=== PATIENT | female | born 1980 | race Caucasian/White ===

== ENCOUNTER 2019-07-25 08:11 | Outpatient (CLI) | payer OTHER, SELFPAY ==
[2019-07-25 10:49] LABS: Thyroid Stimulating Hormone 0.567 uIU/mL (0.465-4.680)
[2019-07-25 11:20] LABS: Free T4 Free Thyroxine 1.39 ng/mL (0.78-2.19)
[2019-07-25 14:56] LABS: Total Triiodothyronine (T3) 1.31 NG/ML (0.97-1.69)
== END 2019-07-25 08:12 | disposition home or self-care (01) ==
PROVIDERS: PCP Internal Medicine Infectious Disease; Visit Provider Internal Medicine
DX: E06.3 Autoimmune thyroiditis (principal); E03.8 Other specified hypothyroidism
CPT/HCPCS: 36415; 84439; 84443; 84480

== ENCOUNTER 2020-01-13 06:32 | Outpatient (CLI) | payer OTHER, SELFPAY ==
[2020-01-13 07:53] LABS: Cholesterol 172 mg/dL (0-200); HDL Direct 55 mg/dL; Triglycerides 143 mg/dL (<150)
[2020-01-13 08:04] LABS: LDL Cholesterol Direct 85 mg/dL
== END 2020-01-13 06:33 | disposition home or self-care (01) ==
PROVIDERS: PCP Internal Medicine Infectious Disease
DX: Z13.220 Encounter for screening for lipoid disorders (principal)
CPT/HCPCS: 36415; 80061

== ENCOUNTER 2020-01-15 16:59 | Outpatient (CLI) | payer OTHER, SELFPAY ==
[2020-01-15 19:10] LABS: Thyroid Stimulating Hormone 0.656 uIU/mL (0.465-4.680); Total Triiodothyronine (T3) 1.36 NG/ML (0.97-1.69)
== END 2020-01-15 17:00 | disposition home or self-care (01) ==
LOC: ANHLAB 17:02
PROVIDERS: PCP Internal Medicine Infectious Disease; Visit Provider Internal Medicine
DX: E06.3 Autoimmune thyroiditis (principal); E04.2 Nontoxic multinodular goiter; E03.8 Other specified hypothyroidism; R56.9 Unspecified convulsions
CPT/HCPCS: 36415; 84439; 84443; 84480

== ENCOUNTER 2020-02-13 13:53 | Outpatient (CLI) | payer OTHER, SELFPAY ==
--- NOTE | ~2020-02-13 | MM_ITS ---
EXAMINATION: MM diagnostic nicolas BI w mark HISTORY: History of right breast density. No problems reported recently. TECHNIQUE: ML, MLO and craniocaudal 3-D tomosynthesis images of both breasts were performed and synth etic 2-D images were generated. CAD analysis was submitted and interpreted. COMPARISON: 02/18/2019bilateral diagnostic digital mammogram 08/14/2018 diagnostic right digital mammogram 01/25/2018bilateral diagnostic digital mammogram and limited right breast ultrasound 01/18/2018bilateral digital screening mammogram BREAST PARENCHYMAL COMPOSITION: There are scattered areas of fibroglandular density. FINDINGS: No mammographic evidence of suspicious mass, architectural distortion, malignant calcificat ion, skin thickening or retraction or significant new or developing density since 01/18/2018. IMPRESSION: 1. No mammographic evidence of malignancy 2. Routine mammographic screening is recommended. BI-RADS Category 1: Negative Reviewed, dictated and finalized at location A. E SALES CONSULTANT
== END 2020-02-13 13:54 | disposition home or self-care (01) ==
LOC: ANHIMG 14:00
PROVIDERS: PCP Internal Medicine Infectious Disease
DX: R92.8 Other abnormal and inconclusive findings on diagnostic imaging of breast (principal)
CPT/HCPCS: 77062; 77066; G0279

== ENCOUNTER 2020-06-19 12:30 | Outpatient (CLI) | payer OTHER, SELFPAY ==
[2020-06-19 13:42] LABS: Thyroid Stimulating Hormone 0.702 uIU/mL (0.465-4.680); Total Triiodothyronine (T3) 1.19 NG/ML (0.97-1.69)
[2020-06-19 13:54] LABS: Free T4 Free Thyroxine 0.95 ng/mL (0.78-2.19)
== END 2020-06-19 12:31 | disposition home or self-care (01) ==
LOC: ANHLAB 12:33
PROVIDERS: PCP Internal Medicine Infectious Disease; Visit Provider Internal Medicine
DX: E06.3 Autoimmune thyroiditis (principal); E04.2 Nontoxic multinodular goiter; E03.8 Other specified hypothyroidism; R56.9 Unspecified convulsions
CPT/HCPCS: 36415; 84439; 84443; 84480

== ENCOUNTER 2020-12-16 13:34 | Outpatient (CLI) | payer OTHER, SELFPAY ==
[2020-12-16 14:21] LABS: Basophils Percent Auto 0.4 % (0.2-1.2); Eosinophils Absolute Auto 0.1 K/mm3 (0-0.3); Eosinophils Percent Auto 1.5 % (0-4.4); Hematocrit 36.4 % (37.0-47.0); Hemoglobin 10.9 g/dL (12.0-15.0); Immature Granulocyte Absolute 0.03 K/mm3 (0.00-0.031); Immature Granulocyte Percent A 0.3 % (0-0.5); Lymphocytes Absolute Auto 3.03 K/mm3 (0.9-3.2); Mean Corpuscular HGB Conc 29.9 g/dl (32-36); Mean Corpuscular Volume 80.2 fl (80-100); Monocytes Absolute Auto 0.5 K/mm3 (0.1-0.6); Monocytes Percent Auto 5.1 % (2.6-8.5); Neutrophils Absolute Auto 5.7 K/mm3 (1.3-6.7); Neutrophils Percent Auto 60.7 % (45.5-73.1); Platelet Count Result 220 k/mm3 (150-375); Red Blood Count 4.54 M/mm3 (4.2-5.4); Red Cell Distribution Width 17.4 % (11.5-14.5); White Blood Count 9.5 K/mm3 (4.5-10.0)
[2020-12-16 14:47] LABS: Free T4 Free Thyroxine 1.43 ng/mL (0.78-2.19)
[2020-12-16 18:00] LABS: Alanine Aminotransferase 15 U/L (4-35); Albumin Level 4.3 g/dL (3.5-5.1); Alkaline Phosphatase 52 U/L (38-126); Anion Gap 11 mmol/L (8-16); Aspartate Amino Transferase 21 U/L (14-36); Bilirubin,Total 0.3 mg/dL (0.2-1.3); Blood Urea Nitrogen 13 mg/dL (7-17); Calcium 8.7 mg/dL (8.4-10.2); Carbon Dioxide 19 mmol/L (22-30); Chloride 110 mmol/L (98-107); Cholesterol 183 mg/dL (0-200); Estimated Glomerular Filt Rate 54; Glucose 94 mg/dL (65-110); HDL Direct 63 mg/dL; Potassium 3.7 mmol/L (3.4-5.0); Sodium 140 mmol/L (137-145); Triglycerides 102 mg/dL (<150)
[2020-12-16 18:11] LABS: LDL Cholesterol Direct 89 mg/dL
[2020-12-16 18:31] LABS: Thyroid Stimulating Hormone 0.303 uIU/mL (0.465-4.680); Total Triiodothyronine (T3) 1.36 NG/ML (0.97-1.69)
== END 2020-12-16 13:35 | disposition home or self-care (01) ==
LOC: ANHLAB 13:36
PROVIDERS: PCP Internal Medicine Infectious Disease; Visit Provider Internal Medicine
DX: Z00.00 Encounter for general adult medical examination without abnormal findings (principal); E06.3 Autoimmune thyroiditis; E04.2 Nontoxic multinodular goiter; E03.8 Other specified hypothyroidism
CPT/HCPCS: 36415; 80053; 80061; 84439; 84443; 84480; 85025

== ENCOUNTER 2021-01-06 13:23 | Outpatient (CLI) | payer OTHER, SELFPAY ==
[2021-01-06 14:05] LABS: Basophils Percent Auto 0.5 % (0.2-1.2); Eosinophils Absolute Auto 0.1 K/mm3 (0-0.3); Eosinophils Percent Auto 1.5 % (0-4.4); Hematocrit 38.2 % (37.0-47.0); Hemoglobin 11.6 g/dL (12.0-15.0); Immature Granulocyte Absolute 0.02 K/mm3 (0.00-0.031); Immature Granulocyte Percent A 0.3 % (0-0.5); Lymphocytes Absolute Auto 2.61 K/mm3 (0.9-3.2); Lymphocytes Percent Auto 35.8 % (18.3-44.2); Mean Corpuscular HGB Conc 30.4 g/dl (32-36); Mean Corpuscular Hemoglobin 24.4 pg (26-34); Mean Corpuscular Volume 80.4 fl (80-100); Mean Platelet Volume 11.7 fl (7.4-10.4); Monocytes Absolute Auto 0.5 K/mm3 (0.1-0.6); Monocytes Percent Auto 7.1 % (2.6-8.5); Neutrophils Percent Auto 54.8 % (45.5-73.1); Platelet Count Result 241 k/mm3 (150-375); Red Blood Count 4.75 M/mm3 (4.2-5.4); Red Cell Distribution Width 17.9 % (11.5-14.5); White Blood Count 7.3 K/mm3 (4.5-10.0)
[2021-01-06 14:17] LABS: Albumin Level 4.2 g/dL (3.5-5.1); Anion Gap 10 mmol/L (8-16); Blood Urea Nitrogen 12 mg/dL (7-17); Calcium 9.3 mg/dL (8.4-10.2); Carbon Dioxide 23 mmol/L (22-30); Chloride 107 mmol/L (98-107); Estimated Glomerular Filt Rate 49; Glucose 89 mg/dL (65-110); Phosphorus 3.7 mg/dL (2.5-4.5); Potassium 3.6 mmol/L (3.4-5.0); Sodium 140 mmol/L (137-145)
[2021-01-06 14:34] LABS: Iron 25 ug/dL (37-170)
[2021-01-06 14:43] LABS: Percent Iron Saturation 5 % (20-50)
[2021-01-06 15:10] LABS: Ferritin 5.72 ng/mL (6.24-137)
== END 2021-01-06 13:24 | disposition home or self-care (01) ==
PROVIDERS: PCP Internal Medicine Infectious Disease; Visit Provider Internal Medicine Infectious Disease
DX: D64.9 Anemia, unspecified (principal); R79.89 Other specified abnormal findings of blood chemistry
CPT/HCPCS: 36415; 80069; 82728; 83540; 83550; 85025

== ENCOUNTER 2021-02-08 07:06 | Outpatient (CLI) | payer OTHER, SELFPAY ==
[2021-02-08 07:34] LABS: Cholesterol 200 mg/dL (0-200); HDL Direct 66 mg/dL; Triglycerides 147 mg/dL (<150)
[2021-02-08 07:45] LABS: LDL Cholesterol Direct 111 mg/dL
== END 2021-02-08 07:07 | disposition home or self-care (01) ==
PROVIDERS: PCP Internal Medicine Infectious Disease; Visit Provider Nurse Practitioner Women's Health
DX: Z13.220 Encounter for screening for lipoid disorders (principal)
CPT/HCPCS: 36415; 80061

== ENCOUNTER 2021-02-12 07:24 | Outpatient (CLI) | payer OTHER, SELFPAY ==
--- NOTE | ~2021-02-12 | MM_ITS ---
EXAMINATION: MM screening nicolas BI w mark HISTORY: Screening mammogram TECHNIQUE: Craniocaudal and mediolateral oblique 3-D tomosynthesis images were obtained and synthetic 2-D images were generated. CAD analysis was submitted and interpreted. COMPARISON: 02/13/2020 bilateral screening mammogram 02/18/2019 bilateral diagnostic mammogram BREAST PARENCHYMAL COMPOSITION: There are scattered areas of fibroglandular density. FINDINGS: There is focal asymmetry 3.3 cm deep to the nipple central left breast on craniocaudal view ; diagnostic left mammogram is recommended, with ultrasound if required. Otherwise there is no evidence of suspicious mass, calcification, or architectural distortion to sugg est malignancy in either breast. There has been no other suspicious interval change. IMPRESSION: 1. Focal asymmetry 3.3 cm deep to the nipple in central left breast on craniocaudal view 2. Diagnostic left mammogram is recommended, with ultrasound if required BI-RADS Category 0: Incomplete: Needs additional imaging evaluation. Reviewed, dictated and finalized at location A. IAC CARE UNIT NURSE IMPRESSION: 1. Focal asymmetry 3.3 cm deep to the nipple in central left breast on cranioca udal view 2. Diagnostic left mammogram is recommended, with ultrasound if required BI-RADS Category 0: Incomplete: Needs additional imaging evaluation.
== END 2021-02-12 07:25 | disposition home or self-care (01) ==
LOC: ANHIMG 07:27
PROVIDERS: PCP Internal Medicine Infectious Disease; Visit Provider Nurse Practitioner Women's Health
DX: Z12.31 Encounter for screening mammogram for malignant neoplasm of breast (principal)
CPT/HCPCS: 77063; 77067

== ENCOUNTER 2021-02-18 14:05 | Outpatient (CLI) | payer OTHER, SELFPAY ==
[2021-02-18 14:54] LABS: Basophils Absolute Auto 0.1 K/mm3 (0.0-0.1); Basophils Percent Auto 0.7 % (0.2-1.2); Eosinophils Absolute Auto 0.2 K/mm3 (0-0.3); Eosinophils Percent Auto 1.8 % (0-4.4); Hematocrit 36.6 % (37.0-47.0); Hemoglobin 11.7 g/dL (12.0-15.0); Immature Granulocyte Absolute 0.02 K/mm3 (0.00-0.031); Immature Granulocyte Percent A 0.2 % (0-0.5); Lymphocytes Absolute Auto 2.81 K/mm3 (0.9-3.2); Lymphocytes Percent Auto 33.7 % (18.3-44.2); Mean Corpuscular Hemoglobin 25.1 pg (26-34); Mean Corpuscular Volume 78.4 fl (80-100); Monocytes Absolute Auto 0.5 K/mm3 (0.1-0.6); Monocytes Percent Auto 5.6 % (2.6-8.5); Neutrophils Absolute Auto 4.8 K/mm3 (1.3-6.7); Platelet Count Result 286 k/mm3 (150-375); Red Blood Count 4.67 M/mm3 (4.2-5.4); White Blood Count 8.4 K/mm3 (4.5-10.0)
[2021-02-18 15:27] LABS: Albumin Level 4.5 g/dL (3.5-5.1); Anion Gap 11 mmol/L (8-16); Blood Urea Nitrogen 13 mg/dL (7-17); Carbon Dioxide 19 mmol/L (22-30); Chloride 105 mmol/L (98-107); Estimated Glomerular Filt Rate 54; Glucose 89 mg/dL (65-110); Phosphorus 3.4 mg/dL (2.5-4.5); Potassium 3.6 mmol/L (3.4-5.0); Sodium 135 mmol/L (137-145)
[2021-02-18 15:53] LABS: Total Triiodothyronine (T3) 1.28 NG/ML (0.97-1.69)
== END 2021-02-18 14:06 | disposition home or self-care (01) ==
PROVIDERS: PCP Internal Medicine Infectious Disease; Visit Provider Internal Medicine
DX: D50.0 Iron deficiency anemia secondary to blood loss (chronic) (principal); E04.2 Nontoxic multinodular goiter; E06.3 Autoimmune thyroiditis
CPT/HCPCS: 36415; 80069; 84439; 84443; 84480; 85025

== ENCOUNTER 2021-04-26 12:39 | Outpatient (CLI) | payer OTHER, SELFPAY ==
[2021-04-26 13:12] LABS: Basophils Absolute Auto 0.1 K/mm3 (0.0-0.1); Basophils Percent Auto 0.8 % (0.2-1.2); Eosinophils Absolute Auto 0.2 K/mm3 (0-0.3); Hematocrit 44.5 % (37.0-47.0); Hemoglobin 14.2 g/dL (12.0-15.0); Immature Granulocyte Absolute 0.02 K/mm3 (0.00-0.031); Immature Granulocyte Percent A 0.2 % (0-0.5); Lymphocytes Absolute Auto 3.07 K/mm3 (0.9-3.2); Lymphocytes Percent Auto 35.3 % (18.3-44.2); Mean Corpuscular HGB Conc 31.9 g/dl (32-36); Mean Corpuscular Hemoglobin 28.1 pg (26-34); Mean Corpuscular Volume 87.9 fl (80-100); Mean Platelet Volume 11.9 fl (7.4-10.4); Monocytes Absolute Auto 0.4 K/mm3 (0.1-0.6); Neutrophils Percent Auto 57.7 % (45.5-73.1); Platelet Count Result 250 k/mm3 (150-375); Red Blood Count 5.06 M/mm3 (4.2-5.4); Red Cell Distribution Width 19.6 % (11.5-14.5); White Blood Count 8.7 K/mm3 (4.5-10.0)
[2021-04-26 13:26] LABS: Albumin Level 4.6 g/dL (3.5-5.1); Anion Gap 9 mmol/L (8-16); Blood Urea Nitrogen 12 mg/dL (7-17); Carbon Dioxide 21 mmol/L (22-30); Chloride 107 mmol/L (98-107); Estimated Glomerular Filt Rate > 60; Glucose 107 mg/dL (65-110); Phosphorus 3.2 mg/dL (2.5-4.5); Potassium 3.9 mmol/L (3.4-5.0); Sodium 137 mmol/L (137-145)
[2021-04-26 13:42] LABS: Iron 280 ug/dL (37-170)
[2021-04-26 13:51] LABS: Percent Iron Saturation 62 % (20-50)
[2021-04-26 14:57] LABS: Add Urine Microscopic? YES; Appearance Urine Clear (Clear); Bilirubin Urine Negative (Negative); Blood Urine Negative (Negative); Color Urine Yellow (Yellow); Glucose Urine UA Negative (Negative); Ketones Urine Negative (Negative); Leukocyte Esterase Ur 2+ LEU/UL (Negative); Mucus Urine Rare /lpf; Nitrate Urine Negative (Negative); Protein Urine Negative (Negative); RBC Urine 0-2 /hpf (0-2); Specific Grav Ur 1.013 (1.001-1.035); Squamous Epithelial Cell Urine Few /hpf (Few); Urobilinogen Urine Negative mg/dL (<2.0)
[2021-04-28 21:37] LABS: Tissue Transglutaminase IgA Ab <1.0 U/mL (<15.0)
== END 2021-04-26 12:40 | disposition home or self-care (01) ==
PROVIDERS: PCP Internal Medicine Infectious Disease; Visit Provider Internal Medicine Infectious Disease
DX: D50.0 Iron deficiency anemia secondary to blood loss (chronic) (principal); N18.30 Chronic kidney disease, stage 3 unspecified
CPT/HCPCS: 36415; 80069; 81001; 82728; 83516; 83540; 83550; 85025

== ENCOUNTER 2021-05-13 12:18 | Outpatient (CLI) | payer OTHER, SELFPAY ==
--- NOTE | ~2021-05-13 | MM_ITS ---
EXAMINATION: MM diagnostic nicolas LT w mark HISTORY: Focal asymmetry in the left breast on screening mammogram TECHNIQUE: Additional 3-D tomosynthesis images of the left breast were performed and synthetic 2-D im ages were generated. CAD analysis was submitted and interpreted. COMPARISON: 02/12/2021, 02/13/2020,02/28/2019 BREAST PARENCHYMAL COMPOSITION: There are scattered areas of fibroglandular density. FINDINGS: There is a return to baseline fibroglandular appearance with spot compression of the left b reast in the area questioned on screening mammogram. IMPRESSION: 1. No mammographic evidence of malignancy. 2. Recommend routine screening mammography in one year. BI-RADS Category 1: Negative Reviewed, dictated and finalized at location A. ICAL MEDICINE SPECIALIST
== END 2021-05-13 12:19 | disposition home or self-care (01) ==
LOC: ANHIMG 12:19
PROVIDERS: PCP Internal Medicine Infectious Disease; Visit Provider Nurse Practitioner Women's Health
DX: R92.8 Other abnormal and inconclusive findings on diagnostic imaging of breast (principal); N64.59 Other signs and symptoms in breast
CPT/HCPCS: 77061; 77065; G0279

== ENCOUNTER 2021-07-01 07:44 | Outpatient (CLI) | payer OTHER, SELFPAY ==
[2021-07-01 08:49] LABS: Total Triiodothyronine (T3) 1.26 NG/ML (0.97-1.69)
[2021-07-01 09:01] LABS: Free T4 Free Thyroxine 1.29 ng/mL (0.78-2.19)
== END 2021-07-01 07:45 | disposition home or self-care (01) ==
LOC: ANHLAB 07:47
PROVIDERS: PCP Internal Medicine Infectious Disease; Visit Provider Internal Medicine
DX: E06.3 Autoimmune thyroiditis (principal); E04.2 Nontoxic multinodular goiter
CPT/HCPCS: 36415; 84439; 84443; 84480

== ENCOUNTER 2021-08-19 17:01 | Outpatient (CLI) | payer OTHER, SELFPAY ==
[2021-08-19 17:31] LABS: Basophils Absolute Auto 0.1 K/mm3 (0.0-0.1); Basophils Percent Auto 0.7 % (0.2-1.2); Eosinophils Absolute Auto 0.2 K/mm3 (0-0.3); Eosinophils Percent Auto 1.6 % (0-4.4); Hematocrit 43.5 % (37.0-47.0); Hemoglobin 14.5 g/dL (12.0-15.0); Immature Granulocyte Absolute 0.03 K/mm3 (0.00-0.031); Immature Granulocyte Percent A 0.3 % (0-0.5); Lymphocytes Absolute Auto 3.26 K/mm3 (0.9-3.2); Lymphocytes Percent Auto 31.3 % (18.3-44.2); Mean Corpuscular HGB Conc 33.3 g/dl (32-36); Mean Corpuscular Hemoglobin 31.4 pg (26-34); Mean Corpuscular Volume 94.2 fl (80-100); Mean Platelet Volume 11.7 fl (7.4-10.4); Monocytes Absolute Auto 0.6 K/mm3 (0.1-0.6); Monocytes Percent Auto 5.5 % (2.6-8.5); Neutrophils Absolute Auto 6.3 K/mm3 (1.3-6.7); Neutrophils Percent Auto 60.6 % (45.5-73.1); Platelet Count Result 209 k/mm3 (150-375); Red Blood Count 4.62 M/mm3 (4.2-5.4); Red Cell Distribution Width 13.3 % (11.5-14.5); White Blood Count 10.4 K/mm3 (4.5-10.0)
[2021-08-19 17:45] LABS: Albumin Level 4.2 g/dL (3.5-5.1); Anion Gap 9 mmol/L (8-16); Blood Urea Nitrogen 16 mg/dL (7-17); Calcium 8.7 mg/dL (8.4-10.2); Carbon Dioxide 24 mmol/L (22-30); Chloride 107 mmol/L (98-107); Estimated Glomerular Filt Rate 54; Glucose 105 mg/dL (65-110); Phosphorus 4.1 mg/dL (2.5-4.5); Potassium 3.7 mmol/L (3.4-5.0); Sodium 140 mmol/L (137-145)
== END 2021-08-19 17:02 | disposition home or self-care (01) ==
LOC: ANHLAB 17:03
PROVIDERS: PCP Internal Medicine Infectious Disease; Visit Provider Internal Medicine Infectious Disease
DX: D50.0 Iron deficiency anemia secondary to blood loss (chronic) (principal)
CPT/HCPCS: 36415; 80069; 85025

== ENCOUNTER 2021-11-05 07:43 | Outpatient (CLI) | payer OTHER, SELFPAY ==
[2021-11-05 10:26] LABS: Total Triiodothyronine (T3) 1.15 NG/ML (0.97-1.69)
== END 2021-11-05 07:44 | disposition home or self-care (01) ==
PROVIDERS: PCP Internal Medicine Infectious Disease; Visit Provider Internal Medicine
DX: E06.3 Autoimmune thyroiditis (principal); E03.8 Other specified hypothyroidism
CPT/HCPCS: 36415; 84436; 84443; 84480

== ENCOUNTER 2022-03-04 14:55 | Outpatient (CLI) | payer OTHER, SELFPAY ==
[2022-03-04 15:27] LABS: Add Urine Microscopic? YES; Appearance Urine Cloudy (Clear); Basophils Percent Auto 0.5 % (0.2-1.2); Bilirubin Urine Negative (Negative); Blood Urine Negative (Negative); Color Urine Light Yellow (Yellow); Eosinophils Absolute Auto 0.1 K/mm3 (0-0.3); Eosinophils Percent Auto 1.6 % (0-4.4); Glucose Urine UA Negative (Negative); Hematocrit 42.6 % (37.0-47.0); Hemoglobin 13.7 g/dL (12.0-15.0); Immature Granulocyte Absolute 0.02 K/mm3 (0.00-0.031); Immature Granulocyte Percent A 0.3 % (0-0.5); Ketones Urine Negative (Negative); Leukocyte Esterase Ur 2+ LEU/UL (Negative); Lymphocytes Absolute Auto 2.51 K/mm3 (0.9-3.2); Lymphocytes Percent Auto 31.7 % (18.3-44.2); Mean Corpuscular HGB Conc 32.2 g/dl (32-36); Mean Corpuscular Volume 93.2 fl (80-100); Mean Platelet Volume 11.9 fl (7.4-10.4); Monocytes Absolute Auto 0.5 K/mm3 (0.1-0.6); Monocytes Percent Auto 6.3 % (2.6-8.5); Neutrophils Absolute Auto 4.7 K/mm3 (1.3-6.7); Neutrophils Percent Auto 59.6 % (45.5-73.1); Nitrate Urine Negative (Negative); Platelet Count Result 205 k/mm3 (150-375); Protein Urine Negative (Negative); Red Blood Count 4.57 M/mm3 (4.2-5.4); Red Cell Distribution Width 13.6 % (11.5-14.5); Specific Grav Ur 1.015 (1.001-1.035); Urobilinogen Urine 0.2 mg/dL (<2.0); White Blood Count 7.9 K/mm3 (4.5-10.0); pH Urine 7.5 (5.0-9.0)
[2022-03-04 15:39] LABS: Amorphous Sediment Urine Few; Bacteria Urine Trace /hpf; RBC Urine 0-2 /hpf (0-2); Squamous Epithelial Cell Urine Many /hpf (Few)
[2022-03-04 15:46] LABS: Alanine Aminotransferase 16 U/L (6-35); Albumin Level 4.2 g/dL (3.5-5.1); Alkaline Phosphatase 59 U/L (38-126); Anion Gap 7 mmol/L (8-16); Aspartate Amino Transferase 21 U/L (14-36); Bilirubin,Total 0.3 mg/dL (0.2-1.3); Blood Urea Nitrogen 16 mg/dL (7-17); Calcium 8.3 mg/dL (8.4-10.2); Carbon Dioxide 22 mmol/L (22-30); Chloride 108 mmol/L (98-107); Estimated Glomerular Filt Rate 54; Glucose 90 mg/dL (65-110); Lipase 149 U/L (23-300); Potassium 3.6 mmol/L (3.4-5.0); Sodium 137 mmol/L (137-145)
[2022-03-04 17:11] LABS: Free T4 Free Thyroxine 1.12 ng/mL (0.78-2.19); Vitamin D 25 Hydroxy 90.3 ng/mL
[2022-03-10 23:04] LABS: Triiodothyronine T3 Free 2.5 pg/mL (2.3-4.2)
== END 2022-03-04 14:56 | disposition home or self-care (01) ==
PROVIDERS: PCP Internal Medicine Infectious Disease; Referring Provider Internal Medicine; Visit Provider Internal Medicine Infectious Disease
DX: Z00.00 Encounter for general adult medical examination without abnormal findings (principal); G40.209 Localization-related (focal) (partial) symptomatic epilepsy and epileptic syndromes with complex partial seizures, not intractable, without status epilepticus
CPT/HCPCS: 36415; 80053; 81001; 82306; 83690; 84439; 84443; 84481; 85025; 87086; 87088

== ENCOUNTER 2022-03-18 12:22 | Outpatient (CLI) | payer OTHER, SELFPAY ==
--- NOTE | ~2022-03-18 | US_ITS ---
EXAMINATION: US pelvic complete w TV DATE: 03/18/2022 13:19 INDICATION: Intermittent left lower quadrant pain Comparison:No prior studies for comparison. TECHNIQUE: Multiple transabdominal and endovaginal sonographic images of the pelvis performed. FINDINGS: The uterus measures 7.3 x 4.7 x 4 cm. There are uterine fibroids, largest located anteriorl y on the right measuring 1.8 cm. The endometrial complex measures 8 mm. The right ovary measures 4.1 x 3.5 x 3.7 cm and the left ovary measures 3.3 x 2.2 x 1.6 cm. There is a right ovarian cyst measuring 2.1 cm. There are small follicles in each ovary. Normal doppler signal in both ovaries. There is no free fluid in the pelvis. There are no abnormal masses seen on either side. IMPRESSION: 1. Uterine fibroids, largest measuring 1.8 cm. 2: Right ovarian cyst measuring 2.1 cm. Reviewed, dictated and finalized at location A. OPRACTIC TEACHER
== END 2022-03-18 12:23 | disposition home or self-care (01) ==
LOC: ANHIMG 12:26
PROVIDERS: PCP Internal Medicine Infectious Disease; Visit Provider Nurse Practitioner Women's Health
DX: R10.2 Pelvic and perineal pain (principal); D25.9 Leiomyoma of uterus, unspecified; N83.201 Unspecified ovarian cyst, right side
CPT/HCPCS: 76830; 76856

== ENCOUNTER 2022-04-13 16:51 | Outpatient (CLI) | payer OTHER, SELFPAY ==
[2022-04-13 19:06] LABS: Folic Acid 11.1 ng/mL (2.76->20)
[2022-04-17 04:03] LABS: FSH 4.9 mIU/mL (***); LH 3.6 mIU/mL (***)
[2022-04-20 20:53] LABS: Estrogen 127.9 pg/mL
[2022-04-22 14:53] LABS: Estradiol, Ultrasensitive <2
== END 2022-04-13 16:52 | disposition home or self-care (01) ==
PROVIDERS: PCP Internal Medicine Infectious Disease; Visit Provider Internal Medicine Infectious Disease
DX: Z00.00 Encounter for general adult medical examination without abnormal findings (principal); N89.8 Other specified noninflammatory disorders of vagina
CPT/HCPCS: 36415; 82670; 82672; 82746; 83001; 83002

== ENCOUNTER 2022-05-10 14:05 | Outpatient (CLI) | payer OTHER, SELFPAY ==
[2022-05-10 16:16] LABS: Free T4 Free Thyroxine 1.19 ng/mL (0.78-2.19)
[2022-05-13 04:36] LABS: Triiodothyronine T3 Free 2.4 pg/mL (2.3-4.2)
== END 2022-05-10 14:06 | disposition home or self-care (01) ==
PROVIDERS: PCP Internal Medicine Infectious Disease; Visit Provider Internal Medicine
DX: E06.3 Autoimmune thyroiditis (principal)
CPT/HCPCS: 36415; 84439; 84443; 84481

== ENCOUNTER 2022-05-19 08:10 | Outpatient (CLI) | payer OTHER, SELFPAY ==
--- NOTE | ~2022-05-19 | US_ITS ---
Pelvic ultrasound. Clinical History: Ovarian cyst Technique: Realtime transabdominal and transvaginal scanning of the pelvis was performed. Color flow Doppler and Doppler spectral analysis were performed. Findings: The uterus is anteverted. The endometrial stripe has a thickness of 8 mm. Exophytic fibroi d measures 2.0 cm in diameter. Small intramural fibroid measures 1.0 cm at the lower uterine segment. The right ovary measures 3.2 x 1.7 x 2.7 cm. No significant right ovarian or adnexal mass is seen. The left ovary measures 2.7 x 2.7 x 1.5 cm. No significant left ovarian or adnexal mass is seen. Vascular flow present in both ovaries on Doppler spectral analysis. There is no evidence of free fluid in the cul de sac. Impression: Small uterine fibroids, as detailed above. Reviewed, dictated and finalized at [facility]. WORKER Impression: Small uterine fibroids, as detailed above.
== END 2022-05-19 08:11 | disposition home or self-care (01) ==
PROVIDERS: PCP Internal Medicine Infectious Disease; Visit Provider Nurse Practitioner Women's Health
DX: N83.201 Unspecified ovarian cyst, right side (principal); D25.9 Leiomyoma of uterus, unspecified
CPT/HCPCS: 76830; 76856

== ENCOUNTER 2022-06-09 09:01 | Outpatient (CLI) | payer OTHER, SELFPAY ==
--- NOTE | ~2022-06-09 | MM_ITS ---
EXAMINATION: MM screening nicolas BI w mark HISTORY: Screening TECHNIQUE: Craniocaudal and mediolateral oblique 3-D tomosynthesis images were obtained and synthetic 2-D images were generated. CAD analysis was submitted and interpreted. COMPARISON: Comparison to multiple prior studies sequentially, with oldest reviewed study dated 01/11. BREAST PARENCHYMAL COMPOSITION: The breasts are heterogeneously dense, which may obscure small masses FINDINGS: There is no evidence of suspicious mass, calcification, or architectural distortion to sugg est malignancy in either breast. There has been no suspicious interval change. IMPRESSION: 1. No mammographic evidence of malignancy. 2. Recommend routine screening mammography in one year. BI-RADS Category 1: Negative Reviewed, dictated and finalized at location A.
== END 2022-06-09 09:02 | disposition home or self-care (01) ==
PROVIDERS: PCP Internal Medicine Infectious Disease; Visit Provider Nurse Practitioner Women's Health
DX: Z12.31 Encounter for screening mammogram for malignant neoplasm of breast (principal)
CPT/HCPCS: 77063; 77067

== ENCOUNTER 2022-08-31 13:05 | Outpatient (CLI) | payer OTHER, SELFPAY ==
[2022-08-31 14:07] LABS: Basophils Percent Auto 0.4 % (0.2-1.2); Eosinophils Absolute Auto 0.2 K/mm3 (0-0.3); Eosinophils Percent Auto 2.5 % (0-4.4); Hemoglobin 13.7 g/dL (12.0-15.0); Immature Granulocyte Absolute 0.06 K/mm3 (0.00-0.031); Immature Granulocyte Percent A 0.9 % (0-0.5); Lymphocytes Absolute Auto 2.24 K/mm3 (0.9-3.2); Lymphocytes Percent Auto 32.4 % (18.3-44.2); Mean Corpuscular HGB Conc 32.6 g/dl (32-36); Mean Corpuscular Hemoglobin 30.6 pg (26-34); Mean Platelet Volume 12.2 fl (7.4-10.4); Monocytes Absolute Auto 0.4 K/mm3 (0.1-0.6); Monocytes Percent Auto 6.1 % (2.6-8.5); Neutrophils Percent Auto 57.7 % (45.5-73.1); Platelet Count Result 181 k/mm3 (150-375); Red Blood Count 4.47 M/mm3 (4.2-5.4); Red Cell Distribution Width 13.2 % (11.5-14.5); White Blood Count 6.9 K/mm3 (4.5-10.0)
[2022-08-31 14:17] LABS: Appearance Urine Clear (Clear); Bacteria Urine None Seen /hpf; Bilirubin Urine Negative (Negative); Blood Urine Negative (Negative); Color Urine Yellow (Yellow); Glucose Urine UA Negative (Negative); Ketones Urine Negative (Negative); Leukocyte Esterase Ur Trace LEU/UL (Negative); Nitrate Urine Negative (Negative); Non Pathogenic Casts 0-2; Protein Urine Negative (Negative); RBC Urine 0-2 /hpf (0-2); Specific Grav Ur 1.011 (1.001-1.035); Squamous Epithelial Cell Urine Occasional /hpf (Few); Urobilinogen Urine 0.2 mg/dL (<2.0); WBC Urine 0-5 /hpf
[2022-08-31 14:18] LABS: Alanine Aminotransferase 24 U/L (6-35); Albumin Level 4.1 g/dL (3.5-5.1); Alkaline Phosphatase 49 U/L (38-126); Anion Gap 8 mmol/L (8-16); Aspartate Amino Transferase 23 U/L (14-36); Bilirubin,Total 0.3 mg/dL (0.2-1.3); Blood Urea Nitrogen 16 mg/dL (7-17); Calcium 8.5 mg/dL (8.4-10.2); Carbon Dioxide 22 mmol/L (22-30); Chloride 108 mmol/L (98-107); Cholesterol 170 mg/dL (0-200); Estimated Glomerular Filt Rate 60; Glucose 74 mg/dL (65-110); HDL Direct 62 mg/dL; Sodium 138 mmol/L (137-145); Triglycerides 122 mg/dL (<150)
[2022-08-31 14:18] LABS: Add Urine Microscopic? YES
[2022-08-31 14:30] LABS: LDL Cholesterol Direct 82 mg/dL
[2022-08-31 15:11] LABS: Free T4 Free Thyroxine 1.16 ng/mL (0.78-2.19)
[2022-09-05 15:00] LABS: Triiodothyronine T3 Free 2.7 pg/mL (2.3-4.2)
== END 2022-08-31 13:06 | disposition home or self-care (01) ==
PROVIDERS: PCP Internal Medicine Infectious Disease; Referring Provider Internal Medicine; Visit Provider Internal Medicine Infectious Disease
DX: Z00.00 Encounter for general adult medical examination without abnormal findings (principal); E04.2 Nontoxic multinodular goiter
CPT/HCPCS: 36415; 80053; 80061; 81001; 84439; 84443; 84481; 85025

== ENCOUNTER 2023-03-14 06:37 | Outpatient (CLI) | payer OTHER, SELFPAY ==
[2023-03-14 07:35] LABS: Basophils Percent Auto 0.4 % (0.2-1.2); Eosinophils Absolute Auto 0.1 K/mm3 (0-0.3); Eosinophils Percent Auto 1.5 % (0-4.4); Hematocrit 44.1 % (37.0-47.0); Hemoglobin 14.1 g/dL (12.0-15.0); Immature Granulocyte Absolute 0.03 K/mm3 (0.00-0.031); Immature Granulocyte Percent A 0.3 % (0-0.5); Lymphocytes Absolute Auto 1.73 K/mm3 (0.9-3.2); Lymphocytes Percent Auto 18.3 % (18.3-44.2); Mean Corpuscular Hemoglobin 31.3 pg (26-34); Mean Corpuscular Volume 97.8 fl (80-100); Mean Platelet Volume 11.1 fl (7.4-10.4); Monocytes Absolute Auto 0.4 K/mm3 (0.1-0.6); Monocytes Percent Auto 4.2 % (2.6-8.5); Neutrophils Absolute Auto 7.1 K/mm3 (1.3-6.7); Neutrophils Percent Auto 75.3 % (45.5-73.1); Platelet Count Result 201 k/mm3 (150-375); Red Blood Count 4.51 M/mm3 (4.2-5.4); Red Cell Distribution Width 12.9 % (11.5-14.5); White Blood Count 9.5 K/mm3 (4.5-10.0)
[2023-03-14 07:47] LABS: Alanine Aminotransferase 13 U/L (6-35); Albumin Level 4.1 g/dL (3.5-5.1); Alkaline Phosphatase 55 U/L (38-126); Anion Gap 9 mmol/L (8-16); Aspartate Amino Transferase 19 U/L (14-36); Bilirubin,Total 0.4 mg/dL (0.2-1.3); Blood Urea Nitrogen 15 mg/dL (7-17); Calcium 8.5 mg/dL (8.4-10.2); Carbon Dioxide 22 mmol/L (22-30); Chloride 109 mmol/L (98-107); Cholesterol 203 mg/dL (0-200); Estimated Glomerular Filt Rate 60; Glucose 78 mg/dL (65-110); HDL Direct 78 mg/dL; Potassium 3.5 mmol/L (3.4-5.0); Sodium 140 mmol/L (137-145); Triglycerides 101 mg/dL (<150)
[2023-03-14 07:59] LABS: LDL Cholesterol Direct 102 mg/dL
== END 2023-03-14 06:38 | disposition home or self-care (01) ==
LOC: ANHLAB 06:39
PROVIDERS: PCP Internal Medicine Infectious Disease; Visit Provider Internal Medicine Infectious Disease
DX: Z00.00 Encounter for general adult medical examination without abnormal findings (principal); E03.9 Hypothyroidism, unspecified
CPT/HCPCS: 36415; 80053; 80061; 84443; 85025

== ENCOUNTER 2023-05-02 07:02 | Outpatient (CLI) | payer OTHER, SELFPAY ==
[2023-05-02 09:06] LABS: Free T4 Free Thyroxine 1.08 ng/mL (0.78-2.19)
[2023-05-05 03:55] LABS: Triiodothyronine T3 Free 2.7 pg/mL (2.3-4.2)
== END 2023-05-02 07:03 | disposition home or self-care (01) ==
LOC: ANHLAB 07:04
PROVIDERS: PCP Internal Medicine Infectious Disease; Visit Provider Internal Medicine
DX: E06.3 Autoimmune thyroiditis (principal)
CPT/HCPCS: 36415; 84439; 84443; 84481

== ENCOUNTER 2023-06-23 07:23 | Outpatient (CLI) | payer OTHER, SELFPAY ==
--- NOTE | ~2023-06-23 | MM_ITS ---
EXAMINATION: MM screening nicolas BI w mark HISTORY: Screening TECHNIQUE: Craniocaudal and mediolateral oblique 3-D tomosynthesis images were obtained and synthetic 2-D images were generated. CAD analysis was submitted and interpreted. COMPARISON: Comparison to multiple prior studies sequentially, with oldest reviewed study dated 06/2018. BREAST PARENCHYMAL COMPOSITION: Dense: The breasts are heterogeneously dense, which may obscure small masses FINDINGS: There is no evidence of suspicious mass, calcification, or architectural distortion to sugg est malignancy in either breast. There has been no suspicious interval change. IMPRESSION: 1. No mammographic evidence of malignancy. 2. Recommend routine screening mammography in one year. BI-RADS Category 1: Negative Reviewed, dictated and finalized at location A.
== END 2023-06-23 07:24 | disposition home or self-care (01) ==
LOC: ANHIMG 07:29
PROVIDERS: PCP Internal Medicine Infectious Disease; Visit Provider Nurse Practitioner Women's Health
DX: Z12.31 Encounter for screening mammogram for malignant neoplasm of breast (principal)
CPT/HCPCS: 77063; 77067

== ENCOUNTER 2023-09-08 14:59 | Outpatient (CLI) | payer OTHER, SELFPAY ==
[2023-09-08 15:29] LABS: Basophils Absolute Auto 0.1 K/mm3 (0.0-0.1); Basophils Percent Auto 0.8 % (0.2-1.2); Eosinophils Absolute Auto 0.1 K/mm3 (0-0.3); Eosinophils Percent Auto 1.7 % (0-4.4); Hematocrit 48.6 % (37.0-47.0); Hemoglobin 16.3 g/dL (12.0-15.0); Immature Granulocyte Absolute 0.02 K/mm3 (0.00-0.031); Immature Granulocyte Percent A 0.3 % (0-0.5); Lymphocytes Absolute Auto 2.23 K/mm3 (0.9-3.2); Lymphocytes Percent Auto 34.4 % (18.3-44.2); Mean Corpuscular HGB Conc 33.5 g/dl (32-36); Mean Corpuscular Hemoglobin 32.5 pg (26-34); Mean Platelet Volume 11.1 fl (7.4-10.4); Monocytes Absolute Auto 0.4 K/mm3 (0.1-0.6); Neutrophils Absolute Auto 3.7 K/mm3 (1.3-6.7); Neutrophils Percent Auto 56.8 % (45.5-73.1); Platelet Count Result 212 k/mm3 (150-375); Red Blood Count 5.01 M/mm3 (4.2-5.4); Red Cell Distribution Width 12.3 % (11.5-14.5); White Blood Count 6.5 K/mm3 (4.5-10.0)
[2023-09-08 16:10] LABS: Free T4 Free Thyroxine 1.12 ng/mL (0.78-2.19)
[2023-09-09 16:19] LABS: Triiodothyronine T3 Free 2.8 pg/mL (2.3-4.2)
[2023-09-11 12:19] LABS: Alanine Aminotransferase 13 U/L (6-35); Albumin Level 4.7 g/dL (3.5-5.1); Alkaline Phosphatase 55 U/L (38-126); Anion Gap 8 mmol/L (4-12); Aspartate Amino Transferase 21 U/L (14-36); Bilirubin,Total 0.5 mg/dL (0.2-1.3); Blood Urea Nitrogen 18 mg/dL (7-17); Calcium 9.2 mg/dL (8.4-10.2); Carbon Dioxide 24 mmol/L (22-30); Chloride 108 mmol/L (98-107); Estimated Glomerular Filt Rate 60; Glucose 82 mg/dL (65-110); Potassium 3.9 mmol/L (3.4-5.0); Sodium 140 mmol/L (137-145)
== END 2023-09-08 15:00 | disposition home or self-care (01) ==
LOC: ANHLAB 15:03
PROVIDERS: PCP Internal Medicine Infectious Disease; Visit Provider Internal Medicine Infectious Disease
DX: Z00.00 Encounter for general adult medical examination without abnormal findings (principal); E03.9 Hypothyroidism, unspecified
CPT/HCPCS: 36415; 80053; 84439; 84443; 84481; 85025

== ENCOUNTER 2024-03-20 07:17 | Outpatient (CLI) | payer OTHER, SELFPAY ==
[2024-03-20 08:15] LABS: Basophils Percent Auto 0.5 % (0.2-1.2); Eosinophils Absolute Auto 0.2 K/mm3 (0-0.3); Hematocrit 43.3 % (37.0-47.0); Hemoglobin 14.4 g/dL (12.0-15.0); Immature Granulocyte Absolute 0.02 K/mm3 (0.00-0.031); Immature Granulocyte Percent A 0.3 % (0-0.5); Lymphocytes Absolute Auto 1.86 K/mm3 (0.9-3.2); Lymphocytes Percent Auto 25.2 % (18.3-44.2); Mean Corpuscular HGB Conc 33.3 g/dl (32-36); Mean Corpuscular Hemoglobin 32.5 pg (26-34); Mean Corpuscular Volume 97.7 fl (80-100); Mean Platelet Volume 11.1 fl (7.4-10.4); Monocytes Absolute Auto 0.4 K/mm3 (0.1-0.6); Monocytes Percent Auto 4.7 % (2.6-8.5); Neutrophils Percent Auto 67.3 % (45.5-73.1); Platelet Count Result 193 k/mm3 (150-375); Red Blood Count 4.43 M/mm3 (4.2-5.4); Red Cell Distribution Width 12.3 % (11.5-14.5); White Blood Count 7.4 K/mm3 (4.5-10.0)
[2024-03-20 10:17] LABS: Alanine Aminotransferase 11 U/L (6-35); Alkaline Phosphatase 52 U/L (38-126); Anion Gap 5 mmol/L (4-12); Aspartate Amino Transferase 18 U/L (14-36); Bilirubin,Total 0.5 mg/dL (0.2-1.3); Blood Urea Nitrogen 14 mg/dL (7-17); Calcium 8.8 mg/dL (8.4-10.2); Carbon Dioxide 22 mmol/L (22-30); Chloride 111 mmol/L (98-107); Cholesterol 199 mg/dL (0-200); Estimated Glomerular Filt Rate > 60; Glucose 79 mg/dL (65-110); Potassium 3.7 mmol/L (3.4-5.0); Sodium 138 mmol/L (137-145)
[2024-03-20 10:30] LABS: Free T4 Free Thyroxine 1.13 ng/dL (0.78-2.19)
[2024-03-21 05:39] LABS: Triiodothyronine T3 Free 2.8 pg/mL (2.3-4.2)
== END 2024-03-20 07:18 | disposition home or self-care (01) ==
PROVIDERS: PCP Internal Medicine Infectious Disease; Visit Provider Internal Medicine Infectious Disease
DX: Z00.00 Encounter for general adult medical examination without abnormal findings (principal); E03.9 Hypothyroidism, unspecified
CPT/HCPCS: 36415; 80053; 82465; 84439; 84443; 84481; 85025

== ENCOUNTER 2024-07-12 15:06 | Outpatient (CLI) | payer OTHER, SELFPAY ==
--- NOTE | ~2024-07-12 | MM_ITS ---
EXAMINATION: MM screening nicolas BI w mark HISTORY: Screening TECHNIQUE: Craniocaudal and mediolateral oblique 3-D tomosynthesis images were obtained and synthetic 2-D images were generated. CAD analysis was submitted and interpreted. COMPARISON: Comparison to multiple prior studies sequentially, with oldest reviewed study dated 11/2018. BREAST PARENCHYMAL COMPOSITION: Dense: The breasts are heterogeneously dense, which may obscure small masses FINDINGS: There is no evidence of suspicious mass, calcification, or architectural distortion to sugg est malignancy in either breast. There has been no suspicious interval change. IMPRESSION: 1. No mammographic evidence of malignancy. 2. Recommend routine screening mammography in one year. BI-RADS Category 1: Negative Reviewed, dictated and finalized at location A.
--- OUTSIDE RECORDS SUMMARY | 2024-07-13 14:48 | XMS_ITS | Encounter Summary ---
Author Organization [facility] Address [address] [place] [address] Phone Care Team Providers Care Lead Slot Technician Name Role Phone Rodo Choudhury MD Primary Care Provider [phone] Valdo Mcneal MD Unavailable [phone] Kyree Artis MD Unavailable [phone] Alexandra Olivo MD PhD Unavaila ble Lorenzo Gamino MD PhD Unavailable [phone] Encounter Details Date Type Department Care Team (Latest Contact Info) Description 02/13/2020 Orders Only [facility] Scanning, Provider Social History Tobacco Use Types Packs/Day Years Used Date Smoking Tobacco: Never Smokeless Tobacco: Never Alcohol Use Standard Drinks/Week Comments No 0 (1 standard drink = 0.6 oz pur e alcohol) Comments Yes Sex and Gender Information Value Date Recorded Sex Assigned at Not on file 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 Gender Identity Female 10/22/2019 9:31 AM CDT Sexual Orientation Not on file 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 Not on file Not on file documented as of this encounter Plan of Treatment Not on file documented as of this encounter Procedures Procedure Name Priority Date/Time Associated Diagnosis Comments SCAN - RADIOLOGY/IMAGING 02/13/2020 documented in this encounter Results * SCAN - RADIOLOGY/IMAGING (02/13/2020) Anatomical Region Laterality Modality Other Provider Scanning Final Result documented in this encounter Visit Diagnoses Not on filedocumented in this encounter Additional Health Concerns Infection Onset Date Last Indicated Resolved Time COVID: Suspected 10/06/2022 10/06/2022 10/06/2022 11:26 AM CDT documented as of this encounter Care Teams Lead Slot Technician Relationship Specialty Start Date End Date Rodo Choudhury MD [address] [place] [address] PCP - General 06/10/16 [place] [address] [address] Consulting Physician Endocrinology Diabetes & Metabolism 07/24/17 [place] [address] [address] Rug Dyer Helper Obstetrics and Gynecology 07/24/17 Alexandra Olivo [place] PhD [address] [address] Surgeon Surgical Oncology 08/02/18 Lorenzo Gamino MD PhD [address] [place] [address] Referring Physician Neurology 09/03/19 documented as of this encounter
--- OUTSIDE RECORDS SUMMARY | 2024-07-13 14:48 | XMS_ITS | Encounter Summary ---
Author Organization [facility] Address [address] [place] [address] Phone Care Team Providers Care Financial Service Representative Name Role Phone Rodo Choudhury MD Primary Care Provider [phone] Valdo Mcneal MD Unavailable [phone] Kyree Artis MD Unavailable [phone] Alexandra Olivo MD PhD Unavaila ble Lorenzo Gamino MD PhD Unavailable [phone] Encounter Details Date Type Department Care Team (Late st Contact Info) Description 05/10/2022 Orders Only [facility] [address] [place] [address] Scanning, Provider Social History Tobacco Use Types Packs/Day Years Used Date Smoking Tobacco: Never Smokeless Tobacco: Never Alcohol Use Standard Drinks/Week Comments No 0 (1 standard drink = 0.6 oz pur e alcohol) Comments Unknown Sex and Gender Information Value Date Recorded Sex Assigned at Not on file 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 Gender Identity Female 10/22/2019 9:31 AM CDT Sexual Orientation Not on file 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 Not on file documented as of this encounter Plan of Treatment Not on file documented as of this encounter Procedures Procedure Name Priority Date/Time Associated Diagnosis Comments SCAN - LABS 05/10/2022 documented in this encounter Results * SCAN - LABS (05/10/2022) us Provider Scanning Final Result documented in this encounter Visit Diagnoses Not on filedocumented in this encounter Additional Health Concerns Infection Onset Date Last Indicated Resolved Time COVID: Suspected 10/06/2022 10/06/2022 10/06/2022 11:26 AM CDT documented as of this encounter Care Teams Financial Service Representative Relationship Specialty Start Date End Date Rodo Choudhury MD [address] [place] [address] PCP - General 06/10/16 [place] [address] [address] Consulting Physician Endocrinology Diabetes & Metabolism 07/24/17 [place] [address] [address] Support Services Coordinator Obstetrics and Gynecology 07/24/17 [place] PhD [address] [address] Surgeon Surgical Oncology 08/02/18 Lorenzo Gamino MD PhD [address] [place] [address] Referring Physician Neurology 09/03/19 documented as of this encounter
--- OUTSIDE RECORDS SUMMARY | 2024-07-13 14:48 | XMS_ITS | Encounter Summary ---
Author Organization [facility] Address [address] [place] [address] Phone Care Team Providers Care Shactor Helper Name Role Phone Rodo Choudhury MD Primary Care Provider [phone] Valdo Mcneal MD Unavailable [phone] Kyree Artis MD Unavailable [phone] Alexandra Olivo MD PhD Unavaila ble Lorenzo Gamino MD PhD Unavailable [phone] Encounter Details Date Type Department Care Team (Late st Contact Info) Description 02/12/2021 Orders Only [facility] [address] [place] [address] Scanning, Provider Social History Tobacco Use Types Packs/Day Years Used Date Smoking Tobacco: Never Smokeless Tobacco: Never Alcohol Use Standard Drinks/Week Comments No 0 (1 standard drink = 0.6 oz pur e alcohol) Comments Yes Sex and Gender Information Value Date Recorded Sex Assigned at Not on file 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 [employer] Gender Identity Female 10/22/2019 9:31 AM CDT Sexual Orientation Not on file 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 file Not on file documented as of this encounter Plan of Treatment Not on file documented as of this encounter Procedures Procedure Name Priority Date/Time Associated Diagnosis Comments SCAN - RADIOLOGY/IMAGING 02/12/2021 documented in this encounter Results * SCAN - RADIOLOGY/IMAGING (02/12/2021) Anatomical Region Laterality Modality Other us Provider Scanning Edited Result - Final documented in this encounter Visit Diagnoses Not on filedocumented in this encounter Additional Health Concerns Infection Onset Date Last Indicated Resolved Time COVID: Suspected 10/06/2022 10/06/2022 10/06/2022 11:26 AM CDT documented as of this encounter Care Teams Shactor Helper Relationship Specialty Start Date End Date Rodo Choudhury MD [address] [place] [address] PCP - General 06/10/16 [place] [address] [address] [facility] [address] [place] [address] Consulting Physician Endocrinology Diabetes & Metabolism 07/24/17 [place] [address] [address] [facility] [address] [place] [address] Discharge Door Operator Obstetrics and Gynecology 07/24/17 [place]andra Olivo [place] PhD [address] [address] [facility] [address] [place] [address] Surgeon Surgical Oncology 08/02/18 Lorenzo Gamino MD PhD [address] [place] [address] Referring Physician Neurology 09/03/19 documented as of this encounter
--- OUTSIDE RECORDS SUMMARY | 2024-07-13 14:48 | XMS_ITS | Encounter Summary ---
Author Organization [facility] Address [address] [place] [address] Phone Care Team Providers Care Artificial Pearl Maker Name Role Phone Rodo Choudhury MD Primary Care Provider [phone] Celso Ortiz MD Unavailable [phone] Valdo Mcneal MD Unavailable [phone] Kyree Artis MD Unavailable [phone] Alexandra Olivo MD PhD Unavaila ble Lorenzo Gamino MD PhD Unavailable [phone] Encounter Details Date Type Department Care Team (Late st Contact Info) Description 04/21/2017 Orders Only [facility] [address] [place] [address] Rodo Choudhury MD [address] [place] [address] Social History Tobacco Use Types Packs/Day Years Used Date Smoking Tobacco: Never Smokeless Tobacco: Never Alcohol Use Standard Drinks/Week Comments No 0 (1 standard drink = 0.6 oz pur e alcohol) Comments Unknown Sex and Gender Information Value Date Recorded Sex Assigned at Not on file Legal Sex Female 12:19 AM MIX MILL TENDER Gender Identity Female 10/22/2019 9:31 AM CDT Sexual Orientation Not on file documented as of this encounter Plan of Treatment Not on file documented as of this encounter Procedures Procedure Name Priority Date/Time Associated Diagnosis Comments SCAN - RADIOLOGY/IMAGING 04/21/2017 2:43 PM MIX MILL TENDER documented in this encounter Results * SCAN - RADIOLOGY/IMAGING (04/21/2017 2:43 PM MIX MILL TENDER) Anatomical Region Laterality Modality Other Rodo Choudhury MD Final Resu lt documented in this encounter Visit Diagnoses Not on filedocumented in this encounter Additional Health Concerns Infection Onset Date Last Indicated Resolved Time COVID: Suspected 10/06/2022 10/06/2022 10/06/2022 11:26 AM CDT documented as of this encounter Care Teams Artificial Pearl Maker Relationship Specialty Start Date End Date Rodo hCoudhury MD [address] [place] [address] PCP - General 06/10/16 [place] [address] [address] Referring Physician Neurology 07/24/17 09/02/19 [place] [address] [address] Consulting Physician Endocrinology Diabetes & Metabolism 07/24/17 [place] [address] [address] Aurist Obstetrics and Gynecology 07/24/17 Alexandra Olivo [place] PhD [address] [address] Surgeon Surgical Oncology 08/02/18 Lorenzo Gamino MD PhD [address] [place] [address] Referring Physician Neurology 09/03/19 documented as of this encounter
--- OUTSIDE RECORDS SUMMARY | 2024-07-13 14:48 | XMS_ITS | Encounter Summary ---
Author Organization [facility] Address [address] [place] [address] Phone Care Team Providers Care Sap Hana Developer Name Role Phone Rodo Choudhury MD Primary Care Provider [phone] Valdo Mcneal MD Unavailable Kyree Artis MD Unavailable [phone] Alexandra Olivo MD PhD Unavaila ble Lorenzo Gamino MD PhD Unavailable [phone] Encounter Details Date Type Department Care Team (Late st Contact Info) Description 05/13/2021 Orders Only [facility] [address] [place] [address] Scanning, Provider Social History Tobacco Use Types Packs/Day Years Used Date Smoking Tobacco: Never Smokeless Tobacco: Never Alcohol Use Standard Drinks/Week Comments No 0 (1 standard drink = 0.6 oz pur e alcohol) Comments Yes Sex and Gender Information Value Date Recorded Sex Assigned at Not on file 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 Gender Identity Female 10/22/2019 9:31 AM CDT Sexual Orientation Not on file 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 Not on file documented as of this encounter Plan of Treatment Not on file documented as of this encounter Procedures Procedure Name Priority Date/Time Associated Diagnosis Comments SCAN - RADIOLOGY/IMAGING 05/13/2021 documented in this encounter Results * SCAN - RADIOLOGY/IMAGING (05/13/2021) Anatomical Region Laterality Modality Other us Provider Scanning Edited Result - Final documented in this encounter Visit Diagnoses Not on filedocumented in this encounter Additional Health Concerns Infection Onset Date Last Indicated Resolved Time COVID: Suspected 10/06/2022 10/06/2022 10/06/2022 11:26 AM CDT documented as of this encounter Care Teams Sap Hana Developer Relationship Specialty Start Date End Date Rodo Choudhury MD [address] [place] [address] PCP - General 06/10/16 [place] [address] [address] [facility] [address] [place] [address] Consulting Physician Endocrinology Diabetes & Metabolism 07/24/17 [place] [address] [address] [facility] [address] [place] [address] Director Of Mobile Marketing Obstetrics and Gynecology 07/24/17 [place] [address] [address] [facility] [address] [place] [address] Surgeon Surgical Oncology 08/02/18 Lorenzo Gamino MD PhD [address] [place] [address] Referring Physician Neurology 09/03/19 documented as of this encounter
--- OUTSIDE RECORDS SUMMARY | 2024-07-13 14:48 | XMS_ITS | Clinical Summary ---
Author Organization [facility] Address [address] [place] [address] Care Team Providers Care Workers Compensation Claims Adjuster Name Role Phone Macey Rodo Mackay MD Primary Care Provider [phone] Valdo Mcneal MD Unavailable Kyree Artis MD Unavailable [phone] Alexandra Olivo MD PhD Unavaila ble Lorenzo Cruz MD PhD Unavailable [phone] Allergies Active Allergy Reactions Criticality Noted Date Comments Carbamazepine Ciprofloxacin Unknown 07/14/2016 Gabapentin Lamotrigine Oxcarbazepine Penicillins Phenytoin Phenytoin Sodium Extended Rash Medium 11/03/2016 Pregabalin Medications artificial tears,hypromellose , (GENTEAL) 0.2 % ophthalmic solution Administer 2 drops into both eyes as needed Active norethindrone-ethi n estradiol (ORTHO-NOVUM 1-35 TAB,NORTREL 1-35 TAB) 1-35 mg-mcg per tablet Take 1 tablet by mouth daily Active multivitamin capsule Take 1 capsule by mouth daily Active ketoconazole (NIZORAL) 2 % shampoo Use shampoo weekly, leave on for 5-10 minutes, then rinse. 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) Take 1 tablet (50 mg total) by mouth 2 (two) times a day Combined dose: 250 mg twice a day 180 tablet 1 5 026 Active lacosamide (VIMPAT) 200 mg tabletIndications: Seizure disorder (HCC) Take 1 tablet (200 mg total) by mouth 2 (two) times a day Combined dose: 250 mg twice a day 180 tablet 1 5 025 Active levETIRAcetam (KEPPRA) 750 mg tabletIndications: Seizure disorder (HCC) Take 2 tablets (1,500 mg total) by mouth 2 (two) times a day 360 tablet 3 5 026 Active topiramate (TOPAMAX) 100 mg tabletIndications: Seizure disorder (HCC) Take 2 tablets (200 mg total) by mouth 2 (two) times a day 360 tablet 3 5 026 Active Active Problems Problem Noted Date Diagnosed Date Skin rash 12/13/2023 Assessment & Plan (12/13/2023 8:49 AM CDT): Skin rash consistent with tenia versicolor Trial of ketoconazole shampoo to be use once a week Bronchitis 10/06/2022 Assessment & Plan (10/06/2022 11:57 AM CDT): Dry cough for 1 week, tested negative for COVID at home. 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 No acute findings on exam. Likely viral, rxd albuterol as needed for chest tightness. Use OTC meds as needed for cough. Tylenol/Ibuprofen as needed for pain. Increase fluids (water) Cool mist humidifier at night Encouraged honey, marshmallows, or chloraseptic to help coat throat. Call with any worsening or persistent symptoms. Routine physical examination 09/03/2019 Overview (09/03/2019): Immunizations were reviewed / meds were reviewed/ pt with thyroid issues and seizure d/o labs were reviewed / meds reconciled Assessment & Plan (03/29/2024 9:35 AM SPOT FACER): IMMUNIZATIONS WERE REVIEWED EYE EXAM AND DENTAL UPTODATE PRIAMRY HYPOTHYORIDMS : NL TSH/ FREE T 3 AND 4 . 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 Overview (06/17/2016): Seizure disorder Assessment & Plan (09/21/2023 10:40 AM CDT): Stable And chronic Being followed by dr cruz no meds were changed today NL LFT Diffuse cystic mastopathy 09/26/2012 Encounters Date Type Department Care Team Description 05/06/2024 Telephone [facility] [address] [place] [address] Rodo Choudhury MD Earache from Last 3 Months Immunizations Immunization Administration Dates Next Due Influenza, Unspecified 03/29/2024(Deferr ed: Patient Refused),12/11/2022(Deferred: Patient Refused) Tdap 02/12/2009 Surgical History Surgery Date Site/Laterality Comments CRANIOTOMY FOR TEMPORAL LOBECTOMY 03/13/2003 - 4 Left Medical History Medical History Date Comments Disease of thyroid gland Thyroid disease Seizure disorder (HCC) Seizure d isorder Cataract of both eyes Cataracts Family History Medical History Relation Name Comments Hypertension Brother Hypertension; Ovarian cancer Mother Cancer, ovari an; Cancer Mother's Sister Epilepsy Other Potentially in maternal uncle Relation Name Status Comments Brother Mother Mother's Sister Other Social History Tobacco Use Types Packs/Day Years Used Date Smoking Tobacco: Never Smokeless Tobacco: Never Tobacco Cessation:Counseling Given: Not Answered Alcohol Use Standard Drinks/Week Comments No 0 (1 standard drink = 0.6 oz pur e alcohol) PHQ-2 Answer Date Recorded PHQ-2 Total Score (If total score is 3 or more points, staff should administer the PHQ-9) 0 03/29/2024 Comments Unknown Sex and Gender Information Value Date Recorded Sex Assigned at Not on file Legal Sex Female 12:19 AM SPOT FACER Gender Identity Female 10/22/2019 9:31 AM CDT Sexual Orientation Not on file 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 Not on file Not on file Obstetrics History Para Term AB IAB SAB Ectopic Multiple Livin g Live Births 1 Date Outcome GA Total Labor Labor/2nd/3rd Weight Sex Type Anes PTL Sima A1 A5 Name Clin Last Filed Vital Signs Vital Sign Reading Time Taken Comments Blood Pressure 120/80 03/29/2024 7:58 AM SPOT FACER Pulse 74 03/29/2024 7:58 AM SPOT FACER Temperature 36.3 C (97.3 F) 03/29/2024 7:58 AM SPOT FACER Respiratory Rate 16 03/29/2024 7:58 AM SPOT FACER Oxygen Saturation 99% 03/29/2024 7:58 AM SPOT FACER Inhaled Oxygen Concentration - - Weight 51.1 kg (112 lb 9.6 oz) 03/29/2024 7:58 A M SPOT FACER Height 157.5 cm (5' 2 ) 03/29/2024 7:58 AM SPOT FACER Body Mass Index 20.59 03/29/2024 7:58 AM SPOT FACER Plan of Treatment Health Maintenance Due Date Last Done Comments Breast Cancer Screening-Mammogram 1978 Cervical Cancer Screening 1978 Colon Cancer Screening-Colonoscopy 1978 Hepatitis C Screening 1978 Hepatitis B Screening 01/17/1996 DTaP/Tdap/Td Vaccine (2 - Td or Tdap) 02/12/2019 02/12/2009 Covid-19 Vaccine ( season) 2023 05/29/2020, 05/01/2020 Influenza Vaccine (#1) 2024 Postp oned from 11/12/2023 (Patient declined, but will receive in the future) Depression Screening 03/29/2025 03/29/2024, 03/23/19 24 Regular Well Visit/Exam 18-64 03/29/2025 03/29/2024, 03/23/2023, 03/10/2022, Additional history exists HPV Vaccines Aged Out No longer eligi ble based on patient's age to complete this topic Pneumococcal vaccine <65 Aged Out No longer eligible based on patient's age to complete this topic Insurance [facility] HMO/PPO Address: [address] [address] [facility] HMO/PPO Address: [place] [phone] [facility] HMO/PPO Address: [place] [address] [facility] HMO/PPO Address: [place] [address] [place] [address] [facility] H[facility]/PPO Address: [address] [address] [facility] HMO/PPO Address: [place] [address] [place] [address] [facility] HMO/PPO Address: [place] [address] Care Teams Workers Compensation Claims Adjuster Relationship Specialty Start Date End Date Rodo Choudhury MD [address] [place] [id number] PCP - General 06/10/16 [place] [id number] [address] [place] [id number] Consulting Physician Endocrinology Diabetes & Metabolism 07/24/17 [place] [address] [address] [facility] [address] [place] [address] Transformer Assembly Supervisor Obstetrics and Gynecology 07/24/17 [place] [id number] [address] [facility] [address] [place] [address] Surgeon Surgical Oncology 08/02/18 Lorenzo Cruz MD PhD [address] [place] [address] Referring Physician Neurology 09/03/19
--- OUTSIDE RECORDS SUMMARY | 2024-07-13 14:48 | XMS_ITS ---
Author Organization [facility] Address [address] [place] [address] Phone Care Team Providers Care [place] Archeology Professor Name Role Phone KAI SEGOVIA, DANY Gamboa Unavailable [phone] MACEY SEGOVIA, DEMETRIUS Conley Primary Care Provider [phone] Problems Includes: Active, inactive, and resolved Problems All Visits Onset Date Resolved Date Provider Condition S tatus Ovarian Cyst Right 03/21/2022 KENYA DAUGHERTY RN REED BC Active Last Documented On 3 8:44AM ; [facility] Uterine Neoplasm, Benign Leiomyoma 03/21/2022 Bee DAUGHERTY RN REED BC Active Last Documented On 3 8:43AM ; [facility] Reported Family History of Heart Disease 11/25/2015 KENYA DAUGHERTY RN N P BC Active Last Documented On 6 9:04AM ; [facility] Note: Unchanged - mom and dads family Encounter For Contraceptive Pill Surveillance 09/26/2012 KENYA DAUGHERTY RN Florentino P BC Active Last Documented On 6 9:02AM ; [facility] DEPRESS PSYCHOSIS-SEVERE 09/26/2012 Unknown KENYA CIFUENTES RN REED BC Resolved Last Documented On 6 9:04AM ; [facility] 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/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 DANY GARCIA MD Active Last Documented On 3 2:09PM ; [facility] Epilepsy and Recurrent Seizures 09/26/2012 DANY QUINN MD Active Last Documented On 3 2:10PM ; [facility] Plan of Treatment Findings Encounter Date Ordered Clinical summary pro vided to patient WELL WOMAN - ESTABLISHED PT with KENYA DAUGHERTY RN [facility] 01/19/2023 Last Documented On 3 2:44PM ; [facility] Ordered Clinical summary pro vided to patient WELL WOMAN - ESTABLISHED PT with KENYA DAUGHERTY RN [facility] 01/06/2022 Last Documented On 2 8:45AM ; [facility] Ordered Clinical summary pro vided to patient WELL WOMAN - ESTABLISHED PT with KENYA DAUGHERTY RN [facility] 12/31/2020 Last Documented On 1 10:35AM ; [facility] Ordered Clinical summary pro vided to patient ANNUAL WELL WOMEN EXAM with KENAY IBARRAVANE SIERRA [facility] 12/30/2019 Last Documented On 0 8:40AM ; [facility] Ordered weight loss diet ANNUAL WELL WOM EN EXAM with KENYA IBARRAKO RN [facility] 12/30/2019 Last Documented On 0 8:40AM ; [facility] Ordered Clinical summary pro vided to patient 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 with KENYA DAUGHERTY RN [facility] 12/25/2018 Last Documented On 9 2:54PM ; [facility] Ordered Clinical summary pro vided to patient ANNUAL TECHNICAL OPERATIONS SPECIALIST EXAM with KENYA IBARRAVANE SIERRA [facility] 12/04/2017 Last Documented On 8 10:40AM ; [facility] Ordered Clinical summary pro vided to patient 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 with KENYA DAUGHERTY RN [facility] 12/01/2016 Last Documented On 7 10:42AM ; [facility] Ordered Clinical summary pro vided to patient 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 with KENYA IBARRAKO RN [facility] 11/25/2015 Last Documented On 6 9:04AM ; [facility] Ordered Clinical summary pro vided to patient 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 with KENYA IBARRAKO RN [facility] 11/11/2014 Last Documented On 5 9:29AM ; [facility] Referrals To Diagnosis Breast Specialist EMELINA HALL MD [facility] - [address] [place] [address] - Other signs and symptoms in breast Last Documented On 8 10:08AM ; [facility] Umbrella Tipper Machine LINDSEY BACA MD - [facility] - [address] [place] [address] [address] [place] [address] - Acute vaginitis Note: vaginal dc. and all te sting WNL Last Documented On 4 10:43AM ; [facility] Instructions to patient Instructed to call if excess carly bleeding or abdominal/pelvic pain Last Documented On 3 2:24PM ; [facility] Instructions For Patient: Mo nthly Self Breast Exam Last Documented On 3 2:24PM ; [facility] Recommend diet and exercise at least 30 min three times per week Last Documented On 3 2:24PM ; [facility] Instructions for patient : K eep the area around the vulva dry. Allow the area to have exposure to air. Avoid irritants such as fabric softeners and perfumed soaps.~ Last Documented On 3 9:01AM ; [facility] Instructed to call if excess carly bleeding or abdominal/pelvic pain Last Documented On 2 8:31AM ; [facility] Instructions For Patient: Mo nthly Self Breast Exam Last Documented On 2 8:31AM ; [facility] Recommend diet and exercise at least 30 min three times per week Last Documented On 2 8:31AM ; [facility] Instructed to call if excess carly bleeding or abdominal/pelvic pain Last Documented On 1 10:18AM ; [facility] Instructions For Patient: Mo nthly Self Breast Exam Last Documented On 1 10:18AM ; [facility] Recommend diet and exercise at least 30 min three times per week Last Documented On 1 10:18AM ; [facility] Instructed to call if excess carly bleeding or abdominal/pelvic pain Last Documented On 0 8:15AM ; [facility] Instructions For Patient: Mo nthly Self Breast Exam Last Documented On 0 8:15AM ; [facility] Recommend diet and exercise at least 30 min three times per week Last Documented On 0 8:15AM ; [facility] Instructed to call if excess carly bleeding or abdominal/pelvic pain Last Documented On 9 2:35PM ; [facility] Instructions For Patient: Mo nthly Self Breast Exam Last Documented On 9 2:35PM ; [facility] Recommend diet and exercise at least 30 min three times per week Last Documented On 9 2:35PM ; [facility] Instructions for patient : B reast Self Exam discussed and technique reviewed Last Documented On 8 10:18AM ; [facility] Instructed to call if excess carly bleeding or abdominal/pelvic pain Last Documented On 8 10:18AM ; [facility] Recommend diet and exercise at least 30 min three times per week Last Documented On 8 10:18AM ; [facility] Instructions for patient : B reast Self Exam discussed and technique reviewed Last Documented On 7 10:27AM ; [facility] Instructed to call if excess carly bleeding or abdominal/pelvic pain Last Documented On 7 10:27AM ; [facility] Recommend diet and exercise at least 30 min three times per week Last Documented On 7 10:27AM ; [facility] Instructions for patient : B reast Self Exam discussed and technique reviewed Last Documented On 6 8:42AM ; [facility] Instructed to call if excess carly bleeding or abdominal/pelvic pain Last Documented On 6 8:42AM ; [facility] Recommend diet and exercise at least 30 min three times per week Last Documented On 6 8:42AM ; [facility] Instructions for patient : B reast Self Exam discussed and technique reviewed Last Documented On 5 9:25AM ; [facility] Instructed to call if excess carly bleeding or abdominal/pelvic pain Last Documented On 5 9:25AM ; [facility] Recommend diet and exercise at least 30 min three times per week Last Documented On 5 9:25AM ; [facility] Instructions for patient : B reast Self Exam discussed and technique reviewed Last Documented On 4 1:55PM ; [facility] Instructions for patient : B reast Self Exam discussed and technique reviewed Last Documented On 3 2:38PM ; [facility] Instructions for patient : B reast Self Exam discussed and technique reviewed Last Documented On 1 1:41PM ; [facility] Education and Decision Aids were provided during visit for: Patient education RE: warnin g signals associated with hormonal contraceptive use including abdominal, chest, or leg pain, headaches or visual disturbances Last Documented On 3 2:24PM ; [facility] Patient Education: Daily araseli cium and vitamin D Last Documented On 3 2:24PM ; [facility] Patient education :ER pelvic pain precautions given, pt to be contacted with all results for plan of care Last Documented On 3 9:05AM ; [facility] Patient education RE: warnin g signals associated with hormonal contraceptive use including abdominal, chest, or leg pain, headaches or visual disturbances Last Documented On 2 8:31AM ; [facility] Patient Education: Daily araseli cium and vitamin D Last Documented On 2 8:31AM ; [facility] Patient education RE: warnin g signals associated with hormonal contraceptive use including abdominal, chest, or leg pain, headaches or visual disturbances Last Documented On 1 10:18AM ; [facility] Patient Education: Daily araseli cium and vitamin D Last Documented On 1 10:18AM ; [facility] Patient education RE: warnin g signals associated with hormonal contraceptive use including abdominal, chest, or leg pain, headaches or visual disturbances Last Documented On 0 8:15AM ; [facility] Patient Education: Daily araseli cium and vitamin D Last Documented On 0 8:15AM ; [facility] Patient education RE: warnin g signals associated with hormonal contraceptive use including abdominal, chest, or leg pain, headaches or visual disturbances Last Documented On 9 2:35PM ; [facility] Patient Education: Daily araseli cium and vitamin D Last Documented On 9 2:35PM ; [facility] Patient education RE: warnin g signals associated with hormonal contraceptive use including abdominal, chest, or leg pain, headaches or visual disturbances Last Documented On 8 10:18AM ; [facility] Patient Education: Daily araseli cium and vitamin D Last Documented On 8 10:18AM ; [facility] Patient education RE: warnin g signals associated with hormonal contraceptive use including abdominal, chest, or leg pain, headaches or visual disturbances Last Documented On 7 10:27AM ; [facility] Patient Education: Daily araseli cium and vitamin D Last Documented On 7 10:27AM ; [facility] Patient education RE: warnin g signals associated with hormonal contraceptive use including abdominal, chest, or leg pain, headaches or visual disturbances Last Documented On 6 8:42AM ; [facility] Patient Education: Daily araseli cium and vitamin D Last Documented On 6 8:42AM ; [facility] Patient education RE: jordenn g signals associated with hormonal contraceptive use including abdominal, chest, or leg pain, headaches or visual disturbances Last Documented On 5 9:25AM ; [facility] Patient Education: Daily araseli cium and vitamin D Last Documented On 5 9:25AM ; [facility] control consent review ed and signed Last Documented On 4 1:55PM ; [facility] control consent review ed and signed Last Documented On 3 2:38PM ; [facility] Counseling about preconcepti on --Discussed with pt the need to optimize her meds prior to conception and if conception is even a good idea with her resultant meds and seizure disorder. She seems rushed to do something before 33 years old. Discussed that 33 in not a magic number. The risk of Down's at age 30 is 03/999 and by age 40 is 1/100. The risk of genetic defects in general is double that: 1/500 at 30 and 1/50 by 40 years old. 35 is where the risk of finding something bad is now greater that the risk of causing a problem by doing the amnio /tests to find out. She expresses understanding and will consider her options and actually may think about adoption. She'll continue on her MVI and folic acid in the meantime Last Documented On 1 6:39PM ; [facility] Assessments Includes: Assessments for all patient encounters Findings Encounter Date NORMAL FEMALE EXAM WELL WOMAN - ESTABLI SHED PT with KENYA DAUGHERTY RN [facility] 01/19/2023 Last Documented On 3 2:44PM ; [facility] Screen malignant neoplasm cervix WELL WO MAN - ESTABLISHED PT with KENYA DAUGHERTY RN [facility] 01/19/2023 Last Documented On 3 2:44PM ; [facility] Cyst of right ovary CHART UPDATE with KENYA DUONG RN [facility] 03/21/2022 Last Documented On 3 1:05PM ; [facility] Female pelvic pain PROBLEM VISIT with KENYA DUONG RN [facility] 03/15/2022 Last Documented On 3 9:07AM ; [facility] Vaginitis r/o PROBLEM VISIT with KENYA DAUGHERTY RN [facility] 03/15/2022 Last Documented On 3 9:07AM ; [facility] NORMAL FEMALE EXAM WELL WOMAN - ESTABLI SHED PT with KENYA DAUGHERTY RN [facility] 01/06/2022 Last Documented On 2 8:45AM ; [facility] Screen malignant neoplasm cervix WELL WO MAN - ESTABLISHED PT with KENYA DAUGHERTY RN [facility] 01/06/2022 Last Documented On 2 8:45AM ; [facility] NORMAL FEMALE EXAM WELL WOMAN - ESTABLI SHED PT with KENYA DAUGHERTY RN [facility] 12/31/2020 Last Documented On 1 10:35AM ; [facility] Screen malignant neoplasm cervix WELL WO MAN - ESTABLISHED PT with KENYA DAUGHERTY RN [facility] 12/31/2020 Last Documented On 1 10:35AM ; [facility] NORMAL FEMALE EXAM ANNUAL WELL WOMEN EXAM with Bee DAUGHERTY RN [facility] 12/30/2019 Last Documented On 0 8:40AM ; [facility] Screen malignant neoplasm cervix ANNUAL WELL WOMEN EXAM with KENYA DAUGHERTY RN [facility] 12/30/2019 Last Documented On 0 8:40AM ; [facility] 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 with KENYA Good [facility] 12/25/2018 Last Documented On 9 2:54PM ; [facility] Screen malignant neoplasm cervix 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 with Bee DAUGHERTY RN [facility] 12/25/2018 Last Documented On 9 2:54PM ; [facility] NORMAL FEMALE EXAM ANNUAL TECHNICAL OPERATIONS SPECIALIST EXAM with KENYA DAUGHERTY RN [facility] 12/04/2017 Last Documented On 8 10:40AM ; [facility] Screen malignant neoplasm cervix ANNUAL TECHNICAL OPERATIONS SPECIALIST EXAM with KENYA DAUGHERTY RN [facility] 12/04/2017 Last Documented On 8 10:40AM ; [facility] 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 with KENYA Good [facility] 12/01/2016 Last Documented On 7 10:42AM ; [facility] Screen malignant neoplasm cervix 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 with Bee DAUGHERTY RN [facility] 12/01/2016 Last Documented On 7 10:42AM ; [facility] Routine pelvic 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 with KENYA DAUGHERTY RN [facility] 11/25/2015 Last Documented On 6 9:04AM ; [facility] Screen malignant neoplasm cervix 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 with Bee DAUGHERTY RN [facility] 11/25/2015 Last Documented On 6 9:04AM ; [facility] Vaginal candidiasis CHART UPDATE with KENYA DUONG RN [facility] 11/18/2014 Last Documented On 5 11:16AM ; [facility] Contraceptive management 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 with KENYA ANDERSEN RN [facility] 11/11/2014 Last Documented On 5 9:29AM ; [facility] Routine gynecological 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 with KENYA DAUGHERTY RN [facility] 11/11/2014 Last Documented On 5 9:29AM ; [facility] Breast fibrocystic disease 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 with DANY VALENZUELA MD 10/23/2013 Last Documented On 4 2:06PM ; [facility] Encounter for contraceptive pill surveillance 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 with DANY QUINN MD 10/23/2013 Last Documented On 4 2:06PM ; [facility] 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 with DANY QUINN MD 10/23/2013 Last Documented On 4 2:06PM ; [facility] Encounter for contraceptive pill surveillance 3 MONTH CHECK with DANY QUINN MD 12/27/2012 Last Documented On 3 9:03AM ; [facility] Breast fibrocystic disease 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 with DANY VALENZUELA MD 09/26/2012 Last Documented On 3 2:50PM ; [facility] Encounter for contraceptive pill surveillance 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 with DANY QUINN MD 09/26/2012 Last Documented On 3 2:50PM ; [facility] 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 with DANY QUINN MD 09/26/2012 Last Documented On 3 2:50PM ; [facility] Breast fibrocystic disease BREAST EXAM with DANY QUINN MD 06/28/2012 Last Documented On 3 2:04PM ; [facility] Mastodynia BREAST EXAM with DANY QUINN MD 06/28/2012 Last Documented On 3 2:04PM ; [facility] Breast fibrocystic disease 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 with DANY QUINN MD 02/08/2011 Last Documented On 1 6:42PM ; [facility] Encounter for contraceptive pill surveillance 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 with DANY QUINN MD 02/08/2011 Last Documented On 1 6:42PM ; [facility] Epilepsy 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 with DANY QUINN MD 02/08/2011 Last Documented On 1 6:42PM ; [facility] NORMAL FEMALE EXAM 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 with DANY GARCIA MD 02/08/2011 Last Documented On 1 6:42PM ; [facility] Preconception Counseling 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 with DANY QUINN MD 02/08/2011 Last Documented On 1 6:42PM ; [facility] Instructions Includes: Instructions for all patient encounters Instructions to patient Instructed to call if excess carly bleeding or abdominal/pelvic pain Last Documented On 3 2:24PM ; [facility] Instructions For Patient: Mo nthly Self Breast Exam Last Documented On 3 2:24PM ; [facility] Recommend diet and exercise at least 30 min three times per week Last Documented On 3 2:24PM ; [facility] Instructions for patient : K eep the area around the vulva dry. Allow the area to have exposure to air. Avoid irritants such as fabric softeners and perfumed soaps.~ Last Documented On 3 9:01AM ; [facility] Instructed to call if excess carly bleeding or abdominal/pelvic pain Last Documented On 2 8:31AM ; [facility] Instructions For Patient: Mo nthly Self Breast Exam Last Documented On 2 8:31AM ; [facility] Recommend diet and exercise at least 30 min three times per week Last Documented On 2 8:31AM ; [facility] Instructed to call if excess carly bleeding or abdominal/pelvic pain Last Documented On 1 10:18AM ; [facility] Instructions For Patient: Mo nthly Self Breast Exam Last Documented On 1 10:18AM ; [facility] Recommend diet and exercise at least 30 min three times per week Last Documented On 1 10:18AM ; [facility] Instructed to call if excess carly bleeding or abdominal/pelvic pain Last Documented On 0 8:15AM ; [facility] Instructions For Patient: Mo nthly Self Breast Exam Last Documented On 0 8:15AM ; [facility] Recommend diet and exercise at least 30 min three times per week Last Documented On 0 8:15AM ; [facility] Instructed to call if excess carly bleeding or abdominal/pelvic pain Last Documented On 9 2:35PM ; [facility] Instructions For Patient: Mo nthly Self Breast Exam Last Documented On 9 2:35PM ; [facility] Recommend diet and exercise at least 30 min three times per week Last Documented On 9 2:35PM ; [facility] Instructions for patient : B reast Self Exam discussed and technique reviewed Last Documented On 8 10:18AM ; [facility] Instructed to call if excess carly bleeding or abdominal/pelvic pain Last Documented On 8 10:18AM ; [facility] Recommend diet and exercise at least 30 min three times per week Last Documented On 8 10:18AM ; [facility] Instructions for patient : B reast Self Exam discussed and technique reviewed Last Documented On 7 10:27AM ; [facility] Instructed to call if excess carly bleeding or abdominal/pelvic pain Last Documented On 7 10:27AM ; [facility] Recommend diet and exercise at least 30 min three times per week Last Documented On 7 10:27AM ; [facility] Instructions for patient : B reast Self Exam discussed and technique reviewed Last Documented On 6 8:42AM ; [facility] Instructed to call if excess carly bleeding or abdominal/pelvic pain Last Documented On 6 8:42AM ; [facility] Recommend diet and exercise at least 30 min three times per week Last Documented On 6 8:42AM ; [facility] Instructions for patient : B reast Self Exam discussed and technique reviewed Last Documented On 5 9:25AM ; [facility] Instructed to call if excess carly bleeding or abdominal/pelvic pain Last Documented On 5 9:25AM ; [facility] Recommend diet and exercise at least 30 min three times per week Last Documented On 5 9:25AM ; [facility] Instructions for patient : B reast Self Exam discussed and technique reviewed Last Documented On 4 1:55PM ; [facility] Instructions for patient : B reast Self Exam discussed and technique reviewed Last Documented On 3 2:38PM ; [facility] Instructions for patient : B reast Self Exam discussed and technique reviewed Last Documented On 1 1:41PM ; [facility] Education and Decision Aids were provided during visit for: Patient education RE: lolly burciaga signals associated with hormonal contraceptive use including abdominal, chest, or leg pain, headaches or visual disturbances Last Documented On 3 2:24PM ; [facility] Patient Education: Daily araseli cium and vitamin D Last Documented On 3 2:24PM ; [facility] Patient education :ER pelvic pain precautions given, pt to be contacted with all results for plan of care Last Documented On 3 9:05AM ; [facility] Patient education RE: warnin g signals associated with hormonal contraceptive use including abdominal, chest, or leg pain, headaches or visual disturbances Last Documented On 2 8:31AM ; [facility] Patient Education: Daily araseli cium and vitamin D Last Documented On 2 8:31AM ; [facility] Patient education RE: warnin g signals associated with hormonal contraceptive use including abdominal, chest, or leg pain, headaches or visual disturbances Last Documented On 1 10:18AM ; [facility] [facility] Patient Education: Daily araseli cium and vitamin D Last Documented On 1 10:18AM ; [facility] Patient education RE: warnin g signals associated with hormonal contraceptive use including abdominal, chest, or leg pain, headaches or visual disturbances Last Documented On 0 8:15AM ; [facility] Patient Education: Daily araseli cium and vitamin D Last Documented On 0 8:15AM ; [facility] Patient education RE: warnin g signals associated with hormonal contraceptive use including abdominal, chest, or leg pain, headaches or visual disturbances Last Documented On 9 2:35PM ; [facility] Patient Education: Daily araseli cium and vitamin D Last Documented On 9 2:35PM ; [facility] Patient education RE: warnin g signals associated with hormonal contraceptive use including abdominal, chest, or leg pain, headaches or visual disturbances Last Documented On 8 10:18AM ; [facility] Patient Education: Daily araseli cium and vitamin D Last Documented On 8 10:18AM ; [facility] Patient education RE: warnin g signals associated with hormonal contraceptive use including abdominal, chest, or leg pain, headaches or visual disturbances Last Documented On 7 10:27AM ; [facility] Patient Education: Daily araseli cium and vitamin D Last Documented On 7 10:27AM ; [facility] Patient education RE: warnin g signals associated with hormonal contraceptive use including abdominal, chest, or leg pain, headaches or visual disturbances Last Documented On 6 8:42AM ; [facility] Patient Education: Daily araseli cium and vitamin D Last Documented On 6 8:42AM ; [facility] Patient education RE: lolly burciaga signals associated with hormonal contraceptive use including abdominal, chest, or leg pain, headaches or visual disturbances Last Documented On 5 9:25AM ; [facility] Patient Education: Daily araseli cium and vitamin D Last Documented On 5 9:25AM ; [facility] control consent review ed and signed Last Documented On 4 1:55PM ; [facility] control consent review ed and signed Last Documented On 3 2:38PM ; [facility] Counseling about preconcepti on --Discussed with pt the need to optimize her meds prior to conception and if conception is even a good idea with her resultant meds and seizure disorder. She seems rushed to do something before 33 years old. Discussed that 33 in not a magic number. The risk of Down's at age 30 is 03/999 and by age 40 is 1/100. The risk of genetic defects in general is double that: 1/500 at 30 and 1/50 by 40 years old. 33 is where the risk of finding something bad is now greater that the risk of causing a problem by doing the amnio /tests to find out. She expresses understanding and will consider her options and actually may think about adoption. She'll continue on her MVI and folic acid in the meantime Last Documented On 1 6:39PM ; [facility] Medical Equipment - Implanted Devices Includes: Current and historical Devices No Medical Equipment Recorded Medications Includes: Current and historical Medications Current Medications (continue as prescribed) Lacosamide 200 MG Oral Tablet 11/10/2021 Provider: SHAHLA CRUZ MD Diagnosis: Last Documented On 01/06/2022 8:23AM By Shruthi Grimaldo ; [facility] GoodSense Artificial Tears 0.5-0.6% Ophthalmic Solutio n 12/30/2019 Provider: Diagnosis: Last Documented On 0 8:16AM By JUAN DANIEL RITCHIE LPN ; [facility] LevETIRAcetam 750MG Oral Tablet 12/04/2017 Provider: Diagnosis: Last Documented On 8 10:21AM By JOE TREVIÑO ; [facility] Topiramate 100MG Oral Tablet 12/04/2017 Provider: Diagnosis: Last Documented On 8 10:23AM By JOE TREVIÑO ; [facility] Levothyroxine Sodium 150MCG Oral Tablet 12/04/2017 P rovider: Diagnosis: Last Documented On 8 10:21AM By JOE TREVIÑO ; [facility] Calcium 600+D 600-400 MG-UNIT OR TABS 02/08/2011 Pro vider: Diagnosis: 1 BID WITH FOOD Last Documented On 02/08/2011 12:55PM By ABIMAEL VILLEGAS LPN ; [facility] Multi-Day OR TABS 02/08/2011 Provider: Diagnosis: 1 DAILY Last Documented On 02/08/2011 12:51PM By ABIMAEL VILLEGAS LPN ; [facility] Past Medications on file Nortrel 1/35 (28) 1-35 MG-MCG Oral Tablet 03/31/2023 - 12/08/2023 Provider: KENYA LANTIGUA Diagnosis: Encounter for surveillance of contraceptive pills One tablet daily Last Documented On 4 3:01PM By KENYA WEISS ; [facility] Nortrel 1/35 (28) 1-35 MG-MCG Oral Tablet 01/19/2023 - 03/31/2023 Provider: KENYA LANTIGUA BC Diagnosis: Encounter for surveillance of contraceptive pills One tablet daily Last Documented On 4 3:00PM By KENYA WEISS ; [facility] Necon 1/35 (28) 1-35 MG-MCG Oral Tablet 05/17/2022 - 04/18/2023 Provider: KENYA RIZVI Diagnosis: Encounter for dalal rveillance of contraceptive pills One tablet daily Last Documented On 3 2:02PM By KENYA WEISS ; [facility] Terconazole 80 MG Vaginal Suppository 02/28/2022 - 03/03/2022 Provider: KENYA LANTIGUA Diagnosis: Acute vaginitis as directed ONE SUPP IN VAGINA EVERY NIGHT X 3 Last Documented On 2 3:27PM By KENYA WEISS ; [facility] Necon 1/35 (28) 1-35 MG-MCG Oral Tablet 01/06/2022 - 05/17/2022 Provider: KENYA DAUGHERTY RN REED Diagnosis: Encounter for dalal rveillance of contraceptive pills One tablet daily Last Documented On 3 1:55PM By KENYA HUA ; [facility] Necon 1/35 (28) 1-35 MG-MCG Oral Tablet 02/10/2021 - 01/06/2022 Provider: KENYA DAUGHERTY RN REED Diagnosis: Encounter for dalal rveillance of contraceptive pills One tablet daily Last Documented On 2 8:44AM By KENYA HUA ; [facility] Necon 1/35 (28) 1-35 MG-MCG Oral Tablet 12/31/2020 - 02/10/2021 Provider: KENYA DAUGHERTY RN REED Diagnosis: Encounter for dalal rveillance of contraceptive pills One tablet daily Last Documented On 1 3:18PM By KENYA HUA ; [facility] Necon 1/35 (28) 1-35 MG-MCG Oral Tablet 12/31/2020 - 1 Provider: Diagnosis: Last Documented On 01/06/2022 8:24AM By Shruthi Grimaldo ; [facility] Necon 1/35 (28) 1-35 MG-MCG Oral Tablet 12/30/2019 - 12/31/2020 Provider: KENYA DAUGHERTY RN REED Diagnosis: Encounter for dalal rveillance of contraceptive pills One tablet daily Last Documented On 1 10:34AM By KENYA WEISS ; [facility] Necon 1/35 (28) 1-35 MG-MCG Oral Tablet 12/25/2018 - 12/30/2019 Provider: KENYA DAUGHERTY RN REED Diagnosis: Encounter for dalal rveillance of contraceptive pills One tablet daily Last Documented On 0 8:39AM By KENYA WEISS ; [facility] Nortrel 1/35 (28) 1-35 MG-MCG Oral Tablet 12/05/2018 - 01/19/2023 Provider: KENYA LANTIGUA BC Diagnosis: Encounter for surveillance of contraceptive pills One tablet daily Last Documented On 3 2:38PM By KENYA WEISS ; [facility] Nortrel 1/35 (28) 1-35 MG-MCG Oral Tablet 12/04/2018 - 12/05/2018 Provider: KENYA LANTIGUA BC Diagnosis: Encounter for surveillance of contraceptive pills One tablet daily Last Documented On 9 1:32PM By KENYA WEISS ; [facility] Vimpat 200MG Oral Tablet 12/04/2017 - 01/06/2022 Provi lauro: Diagnosis: Last Documented On 01/06/2022 8:23AM By Shruthi Grimaldo ; [facility] Magnesium 500MG Oral Capsule 12/04/2017 - 12/25/2018 P rovider: Diagnosis: Last Documented On 12/25/2018 2:31PM By VÍCTOR THEODORE CMA ; [facility] Nortrel 1/35 (28) 1-35MG-MCG Oral Tablet 12/04/2017 - 12/04/2018 Provider: KENYA LANTIGUA BC Diagnosis: Encounter for surveillance of contraceptive pills One tablet daily Last Documented On 9 10:34AM By KENYA WEISS ; [facility] Nortrel 1/35 (28) 1-35MG-MCG Oral Tablet 11/08/2017 - 12/04/2017 Provider: KENYA LANTIGAU BC Diagnosis: One tablet daily Last Documented On 8 10:39AM By KENYA WEISS ; [facility] Necon 1/35 (28) 1-35MG-MCG Oral Tablet 12/01/2016 - 12/25/2018 Provider: KENYA LANTIGUA BC Diagnosis: Encounter for surveillance of contraceptive pills One tablet daily Last Documented On 9 2:51PM By KENYA WEISS ; [facility] Necon 1/35 (28) 1-35MG-MCG Oral Tablet 11/10/2016 - 12/01/2016 Provider: KENYA LANTIGUA BC Diagnosis: Encounter for surveillance of contraceptive pills One tablet daily Last Documented On 7 10:41AM By KENYA HUA ; [facility] Terconazole 0.8 % Cream 01/14/2016 - 01/17/2016 Provider: KENYA LANTIGUA BC Diagnosis: Candidiasis of v ulva and vagina as directed USE 1 MANINDER IN VAG EDWIGE AT HS X 3 APPLY TO PERINEUM BID Last Documented On 6 12:07PM By KENYA HUA ; [facility] Necon 1/35 (28) 1-35 MG-MCG Tablet 11/25/2015 - 11/10/2016 Provider: KENYA LANTIGUA BC Diagnosis: Encounter for dalal rveillance of contraceptive pills One tablet daily Last Documented On 7 2:32PM By KENYA HUA ; [facility] Nortrel 1/35 (28) 1-35 MG-MCG Tablet 11/12/2015 - 11/08/2017 Provider: KENYA LANTIGUA BC Diagnosis: One tablet daily Last Documented On 8 11:36AM By KENYA HUA ; [facility] Nortrel 1/35 (28) 1-35 MG-MCG Tablet 10/14/2015 - 11/12/2015 Provider: KENYA LANTIGUA BC Diagnosis: One tablet daily Last Documented On 6 11:25AM By KENYA HUA ; [facility] Diflucan 150 MG Tablet 01/13/2015 - 01/25/2015 Provide r: DANY QUINN MD Diagnosis: Sig: one po Last Documented On 01/13/2015 3:54PM By DANY QUINN MD ; [facility] Fluconazole 150 MG Tablet 11/18/2014 - 11/19/2014 Provider: KENYA LANTIGUA BC Diagnosis: CANDIDAL VULVOVA GINITIS ONE TAB TODAY Last Documented On 5 11:16AM By KENYA HUA ; [facility] Necon 1/35 (28) 1-35 MG-MCG Tablet 11/11/2014 - 11/25/2015 Provider: KENYA LANTIGUA BC Diagnosis: CONTRACEPT PILL SURVEILL One tablet daily Last Documented On 6 9:03AM By KENYA WEISS ; [facility] Nortrel 35 (28) 1-35 MG-MCG Tablet 11/11/2014 - 11/11 Provider: Diagnosis: Last Documented On 6 8:40AM By KENYA WEISS ; [facility] Necon 35 (28) 1-35 MG-MCG Tablet 10/13/2014 - 11/11/2014 Provider: DANY Razo Diagnosis: CONTRACEPT PILL SURVEILL One tablet daily Last Documented On 5 9:28AM By KENYA WEISS ; [facility] Necon 35 (28) 1-35 MG-MCG OR TABS 10/23/2013 - 10/13/2014 Provider: DANY Razo Diagnosis: CONTRACEPT PILL SURVEILL Last Documented On 10/13/2014 8:03AM By DANY QUINN MD ; [facility] Necon 35 (28) 1-35 MG-MCG OR TABS 12/27/2012 - 10/23/2013 Provider: DANY Razo Diagnosis: CONTRACEPT PILL SURVEILL Last Documented On 10/23/2013 2:04PM By DANY QUINN MD ; [facility] Necon 35 (28) 1-35 MG-MCG OR TABS 09/26/2012 - 12/27/2012 Provider: DANY Razo Diagnosis: CONTRACEPT PILL SURVEILL Last Documented On 12/27/2012 9:02AM By DANY QUINN MD ; [facility] Necon 35 (28) 1-35 MG-MCG OR TABS 06/28/2012 - 09/26/2012 Provider: DANY Razo Diagnosis: CONTRACEPT PILL SURVEILL Last Documented On 09/26/2012 2:47PM By DANY QUINN MD ; [facility] Vimpat 100 MG OR TABS 06/28/2012 - 12/04/2017 Provider : Diagnosis: 300mg in am and 400mg in pm Last Documented On 8 10:23AM By JOE TREVIÑO ; [facility] levETIRAcetam 500 MG OR TABS 06/28/2012 - 12/04/2017 Dom tolliver: Diagnosis: taking 1500mg BID Last Documented On 8 10:20AM By JOE TREVIÑO ; [facility] Topiramate 200 MG OR TABS 06/28/2012 - 12/04/2017 Prov ider: Diagnosis: 250 mg in am and 200 in pm Last Documented On 8 10:22AM By JOE TREVIÑO ; [facility] Necon 1/35 (28) 1-35 MG-MCG OR TABS 02/08/2011 - 06/28/2012 Provider: DANY Razo Diagnosis: CONTRACEPT PILL SURVEILL 1 DAILY Last Documented On 06/28/2012 2:03PM By DANY QUINN MD ; [facility] Necon /35 (28) 1-35 MG-MCG OR TABS 02/08/2011 - 06/28 Provider: Diagnosis: Last Documented On 06/28/2012 12:56PM By LEONOR SHELBY ; [facility] Levothyroxine Sodium 137 MCG OR TABS 02/08/2011 - 11/12 Provider: Diagnosis: 1 Q AM ON EMPTY STOMACH Last Documented On 8 10:21AM By JOE TREVIÑO ; [facility] Cyanocobalamin 1000 MCG/ML IJ SOLN 02/08/2011 - 2012 Provider: Diagnosis: 5ML INJECTION Q WEEK Last Documented On 06/28/2012 12:56PM By LEONOR SHELBY ; [facility] Necon 35 (28) 1-35 MG-MCG OR TABS 02/08/2011 - 02/08 Provider: Diagnosis: 1 DAILY Last Documented On 02/08/2011 1:40PM By DANY QUINN MD ; [facility] Vimpat 100 MG OR TABS 02/08/2011 - 06/28/2012 Provider : Diagnosis: 3 TABS Q AM, 4 TABS Q PM Last Documented On 06/28/2012 12:58PM By LEONOR SHELBY ; [facility] Topiramate 100 MG OR TABS 02/08/2011 - 06/28/2012 Prov ider: Diagnosis: 2.5 TABS Q AM AND 2 TABS Q PM Last Documented On 06/28/2012 12:56PM By LEONOR SHELBY ; [facility] Keppra 500 MG OR TABS 02/08/2011 - 06/28/2012 Provider : Diagnosis: 3 BID Last Documented On 06/28/2012 12:56PM By LEONOR SHELBY ; [facility] Folic Acid 1 MG OR TABS 02/08/2011 - 12/04/2017 Provid er: Diagnosis: 2 BID Last Documented On 8 10:20AM By JOE TREVIÑO ; [facility] Medications Administered Includes: Administered Medications in patient's chart No Administered Medications Recorded Results Includes: Results from 07/14/2023 through 07/13/2024 No Results Recorded For Specified Dates History of Present Illness History of Present Illness not supported for this document type No History of Present Illness Recorded Social History Description 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 Sosa 01/19/2023 Last Documented On 3 2:44PM ; [facility] Activities 01/19/2023 Last Documented On 3 2:44PM ; [facility] Alcohol use: 2 drinks or less per day no ne 01/19/2023 Last Documented On 3 2:44PM ; [facility] Amount of sleep 01/19/2023 Last Documented On 3 2:44PM ; [facility] control is being practiced OCPs Last Documented On 3 2:44PM ; [facility] Education history 01/19/2023 Last Documented On 3 2:44PM ; [facility] Educational level 01/19/2023 Last Documented On 3 2:44PM ; [facility] Marital history 01/19/2023 Last Documented On 3 2:44PM ; [facility] No recent change in sleep 01/19/2023 Last Documented On 3 2:44PM ; [facility] Non-smoker 01/19/2023 Last Documented On 3 2:44PM ; [facility] Not a smoker 01/19/2023 Last Documented On 3 2:44PM ; [facility] Not exercising regularly 01/19/2023 Last Documented On 3 2:44PM ; [facility] Not using alcohol 01/19/2023 Last Documented On 3 2:44PM ; [facility] Not using drugs 01/19/2023 Last Documented On 3 2:44PM ; [facility] Nutritious and satisfying diet 3 Last Documented On 3 2:44PM ; [facility] Personal history 01/19/2023 Last Documented On 3 2:44PM ; [facility] Sexually active 01/19/2023 Last Documented On 3 2:44PM ; [facility] Sexually active with 1 partners in the l ast year 01/19/2023 Last Documented On 3 2:44PM ; [facility] Smoking status : Never smoker 01/19/2023 Last Documented On 3 2:44PM ; [facility] Social history unchanged 01/19/2023 Last Documented On 3 2:44PM ; [facility] Tobacco non-user 01/19/2023 Last Documented On 3 2:44PM ; [facility] Procedures and Surgical History Surgical History Last Updated Surgical history unchanged 11/11/2014 Last Documented On 5 9:29AM ; [facility] Surgical / procedural history brain surg jaylen 03-200506/28/2012 Last Documented On 3 2:04PM ; [facility] Medical History Includes: Medical History in patient's chart Description Last Updated LMP: 01/02/2023 01/19/2023 Last Documented On 3 2:44PM ; [facility] History of Pap smear done 12/2021 Last Documented On 3 2:44PM ; [facility] History of screening mammogram was perfo rmed 05/202201/19/2023 Last Documented On 3 2:44PM ; [facility] Last mammogram date: 05/202201/19/2023 Last Documented On 3 2:44PM ; [facility] Last pap smear date 12/202101/19/2023 Last Documented On 3 2:44PM ; [facility] A mammogram was performed 01/06/2022 Last Documented On 2 8:45AM ; [facility] PRIMARY CARE PROVIDER : PCP-Dr Macey ugalde eurologist Darcy Chavez 12/30/2019 Last Documented On 0 8:40AM ; [facility] Result: normal 12/30/2019 Last Documented On 0 8:40AM ; [facility] 0 12/01/2016 Last Documented On 7 10:42AM ; [facility] Sexually active 12/01/2016 Last Documented On 7 10:42AM ; [facility] Result: normal 12/01/2016 Last Documented On 7 10:42AM ; [facility] No recent change in medical history PT. HAS EPILEPSY 11/11/2014 Last Documented On 5 9:29AM ; [facility] History of hypothyroidism Pt sees Dr. Taylor at [facility] 10/23/2013 Last Documented On 4 2:06PM ; [facility] Contraception: NORTREL 10/23/2013 Last Documented On 4 2:06PM ; [facility] History of ovarian cyst 06/28/2012 Last Documented On 3 2:04PM ; [facility] Seizure disorder, last seizure in 2007 0 06/28/2012 Last Documented On 3 2:04PM ; [facility] Family History Includes: Family History in patient's chart Description Last Updated Cardiac Arrest- sister age 50-09/2022 Last Documented On 3 2:44PM ; [facility] Maternal history of malignan t neoplasm of the ovary mom passed at 67 years old genetic testing negative 11/25/2015 Last Documented On 6 9:04AM ; [facility] Family history of heart disease mom and dads family 11/11/2014 Last Documented On 5 9:29AM ; [facility] Family history of hypertension dads fami ly 11/11/2014 Last Documented On 5 9:29AM ; [facility] Family history of malignant neoplasm of the ovary mom 11/11/2014 Last Documented On 5 9:29AM ; [facility] Family history unchanged 11/11/2014 Last Documented On 5 9:29AM ; [facility] Spouse name: Darrian 06/28/2012 Last Documented On 3 2:04PM ; [facility] Review of Systems Review of Systems not supported for this document type No Review of Systems Recorded Mental Status No Mental Status Recorded Functional Status No Functional Status Recorded Physical Exam Physical Exam not supported for this document type No Physical Exam Recorded Allergies Includes: Active, inactive, and resolved Allergies Substance Type Reaction Onset Date Resolved Date Statu s Trileptal Allergy 01/06/2022 Active Last Documented On 3 2:16PM ; [facility] TEGretol Allergy Skin Rashes / Er uption of skin, Hives / Urticaria 02/08/2011 Active Last Documented On 3 2:16PM ; [facility] Penicillin V Potassium Allergy 02/08/2011 Active Last Documented On 3 2:16PM ; [facility] Neurontin Allergy Skin Rashes / Er uption of skin, Hives / Urticaria 02/08/2011 Active Last Documented On 3 2:16PM ; [facility] Lyrica Allergy 02/08/2011 Active Last Documented On 3 2:16PM ; [facility] LaMICtal Allergy Skin Rashes / Er uption of skin, Hives / Urticaria 02/08/2011 Active Last Documented On 3 2:16PM ; [facility] Dilantin Allergy Skin Rashes / Er uption of skin, Hives / Urticaria 02/08/2011 Active Last Documented On 3 2:16PM ; [facility] Cipro Allergy 02/08/2011 Active Last Documented On 3 2:16PM ; [facility] Insurance Includes: Active Insurance Policies Plan Name Member ID Group # Subscriber Relationship Effect carly Dates 1 - R [id number] QUINTON WING Self 2 - R [id number] [employer] Self Clinical Notes Includes: Signed Clinical Notes starting from 04/01/2022 No Clinical Notes Recorded
--- OUTSIDE RECORDS SUMMARY | 2024-07-13 14:48 | XMS_ITS | Encounter Summary ---
Author Organization [facility] Address [address] [place] [address] Phone Care Team Providers Care Trim Master Operator Name Role Phone Rodo Choudhury MD Primary Care Provider [phone] Valdo Mcneal MD Unavailable [phone] Kyree Artis MD Unavailable Alexandra Olivo MD PhD Unavaila ble Lorenzo Gamino MD PhD Unavailable [phone] Encounter Details Date Type Department Care Team (Late st Contact Info) Description 01/06/2021 Orders Only [facility] [address] [place] [address] Scanning, Provider Social History Tobacco Use Types Packs/Day Years Used Date Smoking Tobacco: Never Smokeless Tobacco: Never Alcohol Use Standard Drinks/Week Comments No 0 (1 standard drink = 0.6 oz pur e alcohol) Comments Yes Sex and Gender Information Value Date Recorded Sex Assigned at Not on file 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 Sex 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 Gender Identity Female 10/22/2019 9:31 AM CDT Sexual Orientation Not on file 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 Not on file Not on file documented as of this encounter Plan of Treatment Not on file documented as of this encounter Procedures Procedure Name Priority Date/Time Associated Diagnosis Comments SCAN - LABS 01/06/2021 documented in this encounter Results * SCAN - LABS (01/06/2021) us Provider Scanning Edited Result - Final documented in this encounter Visit Diagnoses Not on filedocumented in this encounter Additional Health Concerns Infection Onset Date Last Indicated Resolved Time COVID: Suspected 10/06/2022 10/06/2022 10/06/2022 11:26 AM CDT documented as of this encounter Care Teams Trim Master Operator Relationship Specialty Start Date End Date Rodo Choudhury MD [address] [place] [id number] PCP - General 06/10/16 [place] [id number] [address] [facility] [address] [place] [address] Consulting Physician Endocrinology Diabetes & Metabolism 07/24/17 [place] [id number] [address] [facility] [address] [place] [address] Experience Designer Obstetrics and Gynecology 07/24/17 [place] [id number] [address] [facility] [address] [place] [address] Surgeon Surgical Oncology 08/02/18 Lorenzo Gamino MD PhD [address] [place] [address] Referring Physician Neurology 09/03/19 documented as of this encounter
--- OUTSIDE RECORDS SUMMARY | 2024-07-13 14:48 | XMS_ITS | Encounter Summary ---
Author Organization [facility] Address [address] [place] [address] Phone Care Team Providers Care Percussion Welding Machine Operator Name Role Phone Rodo Choudhury MD Primary Care Provider [phone] Celso Ortiz MD Unavailable [phone] Valdo Mcneal MD Unavailable [phone] Kyree Artis MD Unavailable [phone] Alexandra Olivo MD PhD Unavaila ble Lorenzo Gamino MD PhD Unavailable [phone] Encounter Details Date Type Department Care Team (Late st Contact Info) Description 01/17/2017 Orders Only [facility] [address] [place] [address] Rodo Choudhury MD [address] [place] [address] Social History Tobacco Use Types Packs/Day Years Used Date Smoking Tobacco: Never Alcohol Use Standard Drinks/Week Comments No 0 (1 standard drink = 0.6 oz pur e alcohol) Comments Unknown Sex and Gender Information Value Date Recorded Sex Assigned at Not on file 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 Sex 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 Gender Identity Female 10/22/2019 9:31 AM CDT Sexual Orientation Not on file documented as of this encounter Plan of Treatment Not on file documented as of this encounter Procedures Procedure Name Priority Date/Time Associated Diagnosis Comments SCAN - LABS 01/17/2017 2:24 PM LANDSCAPE ARCHITECT AND PLANNER documented in this encounter Results * SCAN - LABS (01/17/2017 2:24 PM LANDSCAPE ARCHITECT AND PLANNER) Rodo Choudhury MD Final Resu lt documented in this encounter Visit Diagnoses Not on filedocumented in this encounter Additional Health Concerns Infection Onset Date Last Indicated Resolved Time COVID: Suspected 10/06/2022 10/06/2022 10/06/2022 11:26 AM CDT documented as of this encounter Care Teams Percussion Welding Machine Operator Relationship Specialty Start Date End Date Rodo Choudhury MD [address] [place] [address] PCP - General 06/10/16 [place] [address] [address] Referring Physician Neurology 07/24/17 09/02/19 [place] [address] [address] Consulting Physician Endocrinology Diabetes & Metabolism 07/24/17 [place] [address] [address] Drip Molder Obstetrics and Gynecology 07/24/17 [place]andra Olivo [place] PhD [address] [address] Surgeon Surgical Oncology 08/02/18 Lorenzo Gamino MD PhD [address] [place] [address] Referring Physician Neurology 09/03/19 documented as of this encounter
--- OUTSIDE RECORDS SUMMARY | 2024-07-13 14:48 | XMS_ITS | Encounter Summary ---
Author Organization [facility] Address [address] [place] [address] Phone Care Team Providers Care Section Leader And Machine Setter Name Role Phone Rodo Choudhury MD Primary Care Provider [phone] Celso Ortiz MD Unavailable [phone] Valdo Mcneal MD Unavailable [phone] Kyree Artis MD Unavailable [phone] Alexandra Olivo MD PhD Unavaila ble Lorenzo Gamino MD PhD Unavailable [phone] Encounter Details Date Type Department Care Team (Late st Contact Info) Description 04/20/2017 Orders Only [facility] [address] [place] [address] Rodo Choudhury MD [address] [place] [address] Social History Tobacco Use Types Packs/Day Years Used Date Smoking Tobacco: Never Smokeless Tobacco: Never Alcohol Use Standard Drinks/Week Comments No 0 (1 standard drink = 0.6 oz pur e alcohol) Comments Unknown Sex and Gender Information Value Date Recorded Sex Assigned at Not on file Legal Sex Female 12:19 AM VP DATA Gender Identity Female 10/22/2019 9:31 AM CDT Sexual Orientation Not on file documented as of this encounter Plan of Treatment Not on file documented as of this encounter Procedures Procedure Name Priority Date/Time Associated Diagnosis Comments SCAN - RADIOLOGY/IMAGING 04/20/2017 10:01 AM VP DATA documented in this encounter Results * SCAN - RADIOLOGY/IMAGING (04/20/2017 10:01 AM VP DATA) Anatomical Region Laterality Modality Other Rodo Choudhury MD Final Resu lt documented in this encounter Visit Diagnoses Not on filedocumented in this encounter Additional Health Concerns Infection Onset Date Last Indicated Resolved Time COVID: Suspected 10/06/2022 10/06/2022 10/06/2022 11:26 AM CDT documented as of this encounter Care Teams Section Leader And Machine Setter Relationship Specialty Start Date End Date Rodo Choudhury MD [address] [place] [address] PCP - General 06/10/16 [place] [address] [address] Referring Physician Neurology 07/24/17 09/02/19 [place] [address] [address] Consulting Physician Endocrinology Diabetes & Metabolism 07/24/17 [place] [address] [address] Marine Oil Terminal Superintendent Obstetrics and Gynecology 07/24/17 Alexandra Olivo [place] PhD [address] [address] Surgeon Surgical Oncology 08/02/18 Lorenzo Gamino MD PhD [address] [place] [address] Referring Physician Neurology 09/03/19 documented as of this encounter
--- OUTSIDE RECORDS SUMMARY | 2024-07-13 14:48 | XMS_ITS | Encounter Summary ---
Author Organization [facility] Address [address] [place] [address] Phone Care Team Providers Care Stapling Machine Operator Name Role Phone Rodo Choudhury MD Primary Care Provider [phone] Valdo Mcneal MD Unavailable [phone] Kyree Artis MD Unavailable [phone] Alexandra Olivo MD PhD Unavaila ble Lorenzo Gamino MD PhD Unavailable [phone] Encounter Details Date Type Department Care Team (Late st Contact Info) Description 03/04/2022 Orders Only [facility] [address] [place] [address] Scanning, Provider Social History Tobacco Use Types Packs/Day Years Used Date Smoking Tobacco: Never Smokeless Tobacco: Never Alcohol Use Standard Drinks/Week Comments No 0 (1 standard drink = 0.6 oz pur e alcohol) Comments Unknown Sex and Gender Information Value Date Recorded Sex Assigned at Not on file Legal Sex Female 12:19 AM MACHINE OPERATOR ASSISTANT Gender Identity Female 10/22/2019 9:31 AM CDT Sexual Orientation Not on file 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 Not on file Not on file documented as of this encounter Plan of Treatment Not on file documented as of this encounter Procedures Procedure Name Priority Date/Time Associated Diagnosis Comments SCAN - LABS 03/04/2022 documented in this encounter Results * SCAN - LABS (03/04/2022) us Provider Scanning Final Result documented in this encounter Visit Diagnoses Not on filedocumented in this encounter Additional Health Concerns Infection Onset Date Last Indicated Resolved Time COVID: Suspected 10/06/2022 10/06/2022 10/06/2022 11:26 AM CDT documented as of this encounter Care Teams Stapling Machine Operator Relationship Specialty Start Date End Date Rodo Choudhury MD [address] [place] [address] PCP - General 06/10/16 [place] [address] [address] Consulting Physician Endocrinology Diabetes & Metabolism 07/24/17 [place] [address] [address] Program Manufacturing Leader Obstetrics and Gynecology 07/24/17 Alexandra Olivo [place] PhD [address] [address] Surgeon Surgical Oncology 08/02/18 Lorenzo Gamino MD PhD [address] [place] [address] Referring Physician Neurology 09/03/19 documented as of this encounter
--- OUTSIDE RECORDS SUMMARY | 2024-07-13 14:48 | XMS_ITS | Clinical Summary ---
Author Organization [facility] Address [address] [place], [place] Phone Care Team Providers Care Graphite Disk Assembler Name Role Phone KAI SEGOVIA, DANY Gamboa Unavailable [phone] MACEY SEGOVIA, DEMETRIUS Conley Primary Care Provider [phone] Reason for Visit and Chief Complaint CHART UPDATE Problems Includes: Problems addressed during this encounter and other active Problems Current Visit Onset Date Resolved Date Provider Conditio n Status Ovarian Cyst Right 03/21/2022 KENYA DAUGHERTY RN REED Active Last Documented On 3 8:44AM ; [facility] Uterine Neoplasm, Benign Leiomyoma 03/21/2022 Bee DAUGHERTY RN REED BC Active Last Documented On 3 8:43AM ; [facility] Reported Family History of Heart Disease 11/25/2015 KENYA DAUGHERTY RN N P BC Active Last Documented On 11/25/2015 9:04AM ; [facility] Note: Unchanged - mom and dads family Past Visits Onset Date Resolved Date Provider Condition Status Encounter For Contraceptive Pill Surveillance 09/26/2012 KENYA DAUGHERTY RN REED BC Active Last Documented On 6 9:02AM ; [facility] 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/26/2012 DANY GARCIA MD Active Last Documented On 3 2:09PM ; [facility] Epilepsy and Recurrent Seizures 09/26/2012 DANY QUINN MD Active Last Documented On 3 2:10PM ; [facility] Plan of Treatment Referrals To Diagnosis Advanced Nursing Professor LINDSEY BACA MD - [facility] - [address] [place] [address] [address] [place], [place] [id number] - Acute vaginitis Note: vaginal dc. and all te sting WNL Last Documented On 4 10:43AM ; [facility] Assessments Includes: Assessments from this encounter Findings - Cyst of right ovary - Last Documented On 03/22/2022 1:05PM ; [facility] Medical Equipment - Implanted Devices Includes: Current Devices No Medical Equipment Recorded Medications Includes: Medications discussed during this encounter and other current Medications Current Medications (continue as prescribed) Lacosamide 200 MG Oral Tablet 11/10/2021 Provider: SHAHLA CRUZ MD Diagnosis: Last Documented On 01/06/2022 8:23AM By Shruthi Grimaldo ; [facility] GoodSense Artificial Tears 0.5-0.6% Ophthalmic Solutio n 12/30/2019 Provider: Diagnosis: Last Documented On 0 8:16AM By JUAN DANIEL RITCHIE LPN ; [facility] LevETIRAcetam 750MG Oral Tablet 12/04/2017 Provider: Diagnosis: Last Documented On 8 10:21AM By JOE TREVIÑO ; [facility] Topiramate 100MG Oral Tablet 12/04/2017 Provider: Diagnosis: Last Documented On 8 10:23AM By JOE TREVIÑO ; [facility] Levothyroxine Sodium 150MCG Oral Tablet 12/04/2017 P rovider: Diagnosis: Last Documented On 8 10:21AM By JOE TREVIÑO ; [facility] Calcium 600+D 600-400 MG-UNIT OR TABS 02/08/2011 Pro vider: Diagnosis: 1 BID WITH FOOD Last Documented On 02/08/2011 12:55PM By ABIMAEL VILLEGAS LPN ; [facility] Multi-Day OR TABS 02/08/2011 Provider: Diagnosis: 1 DAILY Last Documented On 02/08/2011 12:51PM By ABIMAEL VILLEGAS LPN ; [facility] Past Medications on file Nortrel 1/35 (28) 1-35 MG-MCG Oral Tablet 03/31/2023 - 12/08/2023 Provider: KENYA LANTIGUA Diagnosis: Encounter for surveillance of contraceptive pills One tablet daily Last Documented On 4 3:01PM By KENYA HUA ; [facility] Necon 35 (28) 1-35 MG-MCG Oral Tablet 05/17/2022 - 04/18/2023 Provider: KENYA LANTIGUA BC Diagnosis: Encounter for dalal rveillance of contraceptive pills One tablet daily Last Documented On 3 2:02PM By KENYA HUA ; [facility] Terconazole 80 MG Vaginal Suppository 02/28/2022 - 03/03/2022 Provider: KENYA LANTIGUA BC Diagnosis: Acute vaginitis as directed ONE SUPP IN VAGINA EVERY NIGHT X 3 Last Documented On 2 3:27PM By KENYA HUA ; [facility] Terconazole 0.8 % Cream 01/14/2016 - 01/17/2016 Provider: KENYA LANTIGUA Diagnosis: Candidiasis of v ulva and vagina as directed USE 1 MANINDER IN VAG EDWIGE AT HS X 3 APPLY TO PERINEUM BID Last Documented On 6 12:07PM By KENYA HUA ; [facility] Diflucan 150 MG Tablet 01/13/2015 - 01/25/2015 Provide r: DANY QUINN MD Diagnosis: Sig: one po Last Documented On 01/13/2015 3:54PM By DANY QUINN MD ; [facility] Fluconazole 150 MG Tablet 11/18/2014 - 11/19/2014 Provider: KENYA DAUGHERTY RN REED Diagnosis: CANDIDAL VULVOVA GINITIS ONE TAB TODAY Last Documented On 5 11:16AM By KENYA HUA ; [facility] Medications Administered Includes: Administered Medications from this encounter No Administered Medications Recorded Results Includes: Results discussed during this encounter No Results Recorded For Specified Dates History of Present Illness Includes: History of Present Illness from this encounter No History of Present Illness Recorded Social History No Social History Recorded - Smoking Status Unknown Procedures and Surgical History Surgical History Last Updated Surgical history unchanged 11/11/2014 Last Documented On 3 8:41AM ; [facility] Surgical / procedural history brain surg jaylen 03-200506/28/2012 Last Documented On 3 8:41AM ; [facility] Medical History Includes: Medical History addressed during this encounter Description Last Updated LMP: 02/21/2022 01/19/2023 Last Documented On 3 8:41AM ; [facility] History of Pap smear done 12/25/201811/2022 Last Documented On 3 8:41AM ; [facility] History of screening mammogram was perfo rmed 05/202101/19/2023 Last Documented On 3 8:41AM ; [facility] Last mammogram date: 05/202101/19/2023 Last Documented On 3 8:41AM ; [facility] Last pap smear date 12/202001/19/2023 Last Documented On 3 8:41AM ; [facility] A mammogram was performed 01/06/2022 Last Documented On 3 8:41AM ; [facility] PRIMARY CARE PROVIDER : PCP-Dr Macey Julion eurologist Darcy Chavez 12/30/2019 Last Documented On 3 8:41AM ; [facility] Result: normal 12/30/2019 Last Documented On 3 8:41AM ; [facility] 0 12/01/2016 Last Documented On 3 8:41AM ; [facility] Sexually active 12/01/2016 Last Documented On 3 8:41AM ; [facility] Result: normal 12/01/2016 Last Documented On 3 8:41AM ; [facility] No recent change in medical history PT. HAS EPILEPSY 11/11/2014 Last Documented On 3 8:41AM ; [facility] History of hypothyroidism Pt sees Dr. Taylor at [facility] 10/23/2013 Last Documented On 3 8:41AM ; [facility] Contraception: NORTREL 10/23/2013 Last Documented On 3 8:41AM ; [facility] History of ovarian cyst 06/28/2012 Last Documented On 3 8:41AM ; [facility] Seizure disorder, last seizure in 2007 0 06/28/2012 Last Documented On 3 8:41AM ; [facility] Family History Includes: Family History addressed during this encounter Description Last Updated Maternal history of malignan t neoplasm of the ovary mom passed at 67 years old genetic testing negative 11/25/2015 Last Documented On 3 8:41AM ; [facility] Family history of heart disease mom and dads family 11/11/2014 Last Documented On 3 8:41AM ; [facility] Family history of hypertension dads fami ly 11/11/2014 Last Documented On 3 8:41AM ; [facility] Family history of malignant neoplasm of the ovary mom 11/11/2014 Last Documented On 3 8:41AM ; [facility] Family history unchanged 11/11/2014 Last Documented On 3 8:41AM ; [facility] Spouse name: Darrian 06/28/2012 Last Documented On 3 8:41AM ; [facility] Review of Systems Includes: Review of Systems from this encounter No Review of Systems Recorded Mental Status Includes: Mental Status from this encounter No Mental Status Recorded Functional Status Includes: Functional Status from this encounter No Functional Status Recorded Physical Exam Includes: Physical Exam from this encounter No Physical Exam Recorded Allergies Includes: Active Allergies Substance Type Reaction Onset Date Resolved Date Statu s Trileptal Allergy 01/06/2022 Active Last Documented On 3 2:16PM ; [facility] TEGretol Allergy Skin Rashes / Er uption of skin, Hives / Urticaria 02/08/2011 Active Last Documented On 3 2:16PM ; [facility] Penicillin V Potassium Allergy 02/08/2011 Active Last Documented On 3 2:16PM ; [facility] Neurontin Allergy Skin Rashes / Er uption of skin, Hives / Urticaria 02/08/2011 Active Last Documented On 3 2:16PM ; [facility] Lyrica Allergy 02/08/2011 Active Last Documented On 3 2:16PM ; [facility] LaMICtal Allergy Skin Rashes / Er uption of skin, Hives / Urticaria 02/08/2011 Active Last Documented On 3 2:16PM ; [facility] Dilantin Allergy Skin Rashes / Er uption of skin, Hives / Urticaria 02/08/2011 Active Last Documented On 3 2:16PM ; [facility] Cipro Allergy 02/08/2011 Active Last Documented On 3 2:16PM ; [facility] Encounters Encounter Provider Location Date Check-In Time Check-Out Time Diagnosis CHART UPDATE KENYA DAUGHERTY RN [facility] 3 8:41AM 11:59PM Ovarian Cyst Right Insurance Includes: Active Insurance Policies Plan Name Member ID Group # Subscriber Relationship Effect carly Dates 1 - R [id number] QUINTON WING Self 2 - [facility] [id number] QUINTON Zaragoza Clinical Notes Includes: Clinical Notes from this encounter No Clinical Notes Recorded
--- OUTSIDE RECORDS SUMMARY | 2024-07-13 14:48 | XMS_ITS | Encounter Summary ---
Author Organization [facility] Address [address] [facility] [place] [address] Phone Care Team Providers Care Tufting Machine Operator Name Role Phone Rodo Choudhury MD Primary Care Provider [phone] Valdo Mcneal MD Unavailable [phone] Kyree Artis MD Unavailable [phone] Alexandra Olivo MD PhD Unavaila ble Lorenzo Gamino MD PhD Unavailable [phone] Encounter Details Date Type Department Care Team (Late st Contact Info) Description 02/13/2020 Orders Only [facility] [address] [facility] [place] [address] Scanning, Provider Social History Tobacco Use Types Packs/Day Years Used Date Smoking Tobacco: Never Smokeless Tobacco: Never Alcohol Use Standard Drinks/Week Comments No 0 (1 standard drink = 0.6 oz pur e alcohol) Comments Yes Sex and Gender Information Value Date Recorded Sex Assigned at Not on file Legal Sex Female 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 Gender Identity Female 10/22/2019 9:31 AM CDT Sexual Orientation Not on file 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 Not on file Not on file Not on file documented as of this encounter Plan of Treatment Not on file documented as of this encounter Procedures Procedure Name Priority Date/Time Associated Diagnosis Comments SCAN - RADIOLOGY/IMAGING 02/13/2020 documented in this encounter Results * SCAN - RADIOLOGY/IMAGING (02/13/2020) Anatomical Region Laterality Modality Other us Provider Scanning Edited Result - Final documented in this encounter Visit Diagnoses Not on filedocumented in this encounter Additional Health Concerns Infection Onset Date Last Indicated Resolved Time COVID: Suspected 10/06/2022 10/06/2022 10/06/2022 11:26 AM CDT documented as of this encounter Care Teams Tufting Machine Operator Relationship Specialty Start Date End Date Rodo Choudhury MD [address] [place] [address] PCP - General 06/10/16 [place] [address] [address] [address] Consulting Physician Endocrinology Diabetes & Metabolism 07/24/17 [place] [address] [address] [address] Restaurant Supervisor Obstetrics and Gynecology 07/24/17 [place] [address] [address] [address] Surgeon Surgical Oncology 08/02/18 Lorenzo Gamino MD PhD [address] [place] [address] Referring Physician Neurology 09/03/19 documented as of this encounter
--- OUTSIDE RECORDS SUMMARY | 2024-07-13 14:48 | XMS_ITS | Clinical Summary ---
Author Organization [facility] [[email or web address]] Address [address] [place], [place] Phone Care Team Providers Care Cell Installer Name Role Phone KAI SEGOVIA, DANY Gamboa Unavailable [phone] MACEY SEGOVIA, DEMETRIUS Conley Primary Care Provider [phone] Reason for Visit and Chief Complaint CHART UPDATE Problems Includes: Problems addressed during this encounter and other active Problems Current Visit Onset Date Resolved Date Provider Conditio n Status Reported Family History of Heart Disease 11/25/2015 KENYA DAUGHERTY RN REED Active Last Documented On 11/25/2015 9:04AM ; [facility] Note: Unchanged - mom and dads family Past Visits Onset Date Resolved Date Provider Condition Status Ovarian Cyst Right 03/21/2022 KENYA DAUGHERTY RN REED RIZVI Active Last Documented On 3 8:44AM ; [facility] Uterine Neoplasm, Benign Leiomyoma 03/21/2022 Bee DAUGHERTY RN REED RIZVI Active Last Documented On 3 8:43AM ; [facility] [[email or web address]] Encounter For Contraceptive Pill Surveillance 09/26/2012 KENYA DAUGHERTY RN REED Active Last Documented On 6 9:02AM ; [facility] 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/26/2012 DANY GARCIA MD Active Last Documented On 3 2:09PM ; [facility] Epilepsy and Recurrent Seizures 09/26/2012 DANY QUINN MD Active Last Documented On 3 2:10PM ; [facility] Plan of Treatment No Plan of Treatment Recorded Assessments Includes: Assessments from this encounter No Assessments Recorded Medical Equipment - Implanted Devices Includes: Current Devices No Medical Equipment Recorded Medications Includes: Medications discussed during this encounter and other current Medications New / Renewed during this visit KENYA DAUGHERTY RN REED on 03/31/2023 Nortrel 1/35 (28) 1-35 MG-MCG Oral Tablet Provider: KENYA DAUGHERTY RN Florentino P 84 day supply: 84 tablet, 2 refills Diagnosis: Encounter for surveillance of contraceptive pills One tablet daily Pharmacy: [facility] - [address], [id number] - Last Documented On 4 3:01PM By KENYA LANTIGUA- ; [facility] Current Medications (continue as prescribed) Lacosamide 200 MG Oral Tablet 11/10/2021 Provider: SHAHLA CRUZ MD Diagnosis: Last Documented On 01/06/2022 8:23AM By Shruthi Grimaldo ; [facility] GoodSense Artificial Tears 0.5-0.6% Ophthalmic Solutio n 12/30/2019 Provider: Diagnosis: Last Documented On 0 8:16AM By JUAND ANIEL RITCHIE LPN ; [facility] LevETIRAcetam 750MG Oral Tablet 12/04/2017 Provider: Diagnosis: Last Documented On 8 10:21AM By JOE TREVIÑO ; [facility] Topiramate 100MG Oral Tablet 12/04/2017 Provider: Diagnosis: Last Documented On 8 10:23AM By JOE TREVIÑO ; [facility] Levothyroxine Sodium 150MCG Oral Tablet 12/04/2017 Dom sullivander: Diagnosis: Last Documented On 8 10:21AM By JOE TREVIÑO ; [facility] Calcium 600+D 600-400 MG-UNIT OR TABS 02/08/2011 Pro vider: Diagnosis: 1 BID WITH FOOD Last Documented On 02/08/2011 12:55PM By ABIMAEL VILLEGAS LPN ; [facility] Multi-Day OR TABS 02/08/2011 Provider: Diagnosis: 1 DAILY Last Documented On 02/08/2011 12:51PM By ABIMAEL VILLEGAS LPN ; [facility] Past Medications on file Necon 35 (28) 1-35 MG-MCG Oral Tablet 05/17/2022 - 04/18/2023 Provider: KENYA LANTIGUA Diagnosis: Encounter for dalal rveillance of contraceptive pills One tablet daily Last Documented On 3 2:02PM By KENYA HUA ; [facility] Terconazole 80 MG Vaginal Suppository 02/28/2022 - 03/03/2022 Provider: KENYA LANTIGUA Diagnosis: Acute vaginitis as directed ONE SUPP IN VAGINA EVERY NIGHT X 3 Last Documented On 2 3:27PM By KENYA WEISS ; [facility] Terconazole 0.8 % Cream 01/14/2016 - 01/17/2016 Provider: KENYA LANTIGUA Diagnosis: Candidiasis of v ulva and vagina as directed USE 1 MANINDER IN VAG EDWIGE AT HS X 3 APPLY TO PERINEUM BID Last Documented On 6 12:07PM By KENYA HUA ; [facility] Diflucan 150 MG Tablet 01/13/2015 - 01/25/2015 Provide r: DANY QUINN MD Diagnosis: Sig: one po Last Documented On 01/13/2015 3:54PM By DANY QUINN MD ; [facility] [[email or web address]] Fluconazole 150 MG Tablet 11/18/2014 - 11/19/2014 Provider: KENYA DAUGHERTY RN REED Diagnosis: CANDIDAL VULVOVA GINITIS ONE TAB TODAY Last Documented On 5 11:16AM By KENYA HUA ; [facility] [[email or web address]] Medications Administered Includes: Administered Medications from this [...] Surgical history unchanged 11/11/2014 Last Documented On 4 2:58PM ; [facility] Surgical / procedural history brain surg jaylen -200506/28/2012 Last Documented On 4 2:58PM ; [facility] [[email or web address]] Medical History Includes: Medical History addressed during this encounter Description Last Updated LMP: 01/02/2023 01/19/2023 Last Documented On 4 2:58PM ; [facility] History of Pap smear done 12/2021 Last Documented On 4 2:58PM ; [facility] History of screening mammogram was perfo rmed 05/202201/19/2023 Last Documented On 4 2:58PM ; [facility] Last mammogram date: 05/202201/19/2023 Last Documented On 4 2:58PM ; [facility] Last pap smear date 12/202101/19/2023 Last Documented On 4 2:58PM ; [facility] A mammogram was performed 01/06/2022 Last Documented On 4 2:58PM ; [facility] PRIMARY CARE PROVIDER : PCP-Dr Macey ugalde eurologist Darcy Chavez 12/30/2019 Last Documented On 4 2:58PM ; [facility] [[email or web address]] Result: normal 12/30/2019 Last Documented On 4 2:58PM ; [facility] 0 12/01/2016 Last Documented On 4 2:58PM ; [facility] Sexually active 12/01/2016 Last Documented On 4 2:58PM ; [facility] [[email or web address]] Result: normal 12/01/2016 Last Documented On 4 2:58PM ; [facility] No recent change in medical history PT. HAS EPILEPSY 11/11/2014 Last Documented On 4 2:58PM ; [facility] [[email or web address]] History of hypothyroidism Pt sees Dr. Taylor at [facility] 10/23/2013 Last Documented On 4 2:58PM ; [facility] [[email or web address]] Contraception: NORTREL 10/23/2013 Last Documented On 4 2:58PM ; [facility] [[email or web address]] History of ovarian cyst 06/28/2012 Last Documented On 4 2:58PM ; [facility] Seizure disorder, last seizure in 2007 0 06/28/2012 Last Documented On 4 2:58PM ; [facility] Family History Includes: Family History addressed during this encounter Description Last Updated Cardiac Arrest- sister age 50-09/2022 Last Documented On 4 2:58PM ; [facility] Maternal history of malignan t neoplasm of the ovary mom passed at 67 years old genetic testing negative 11/25/2015 Last Documented On 4 2:58PM ; [facility] Family history of heart disease mom and dads family 11/11/2014 Last Documented On 4 2:58PM ; [facility] Family history of hypertension dads fami ly 11/11/2014 Last Documented On 4 2:58PM ; [facility] Family history of malignant neoplasm of the ovary mom 11/11/2014 Last Documented On 4 2:58PM ; [facility] Family history unchanged 11/11/2014 Last Documented On 4 2:58PM ; [facility] Spouse name: Darrian 06/28/2012 Last Documented On 4 2:58PM ; [facility] Review of Systems Includes: Review of Systems [...] Active Last Documented On 3 2:16PM ; [facility] TEGretol Allergy Skin Rashes / Er uption of skin, Hives / Urticaria 02/08/2011 Active Last Documented On 3 2:16PM ; [facility] Penicillin V Potassium Allergy 02/08/2011 Active Last Documented On 3 2:16PM ; [facility] Neurontin Allergy Skin Rashes / Er uption of skin, Hives / Urticaria 02/08/2011 Active Last Documented On 3 2:16PM ; [facility] Lyrica Allergy 02/08/2011 Active Last Documented On 3 2:16PM ; [facility] LaMICtal Allergy Skin Rashes / Er uption of skin, Hives / Urticaria 02/08/2011 Active Last Documented On 3 2:16PM ; [facility] Dilantin Allergy Skin Rashes / Er uption of skin, Hives / Urticaria 02/08/2011 Active Last Documented On 3 2:16PM ; [facility] Cipro Allergy 02/08/2011 Active Last Documented On 3 2:16PM ; [facility] [[email or web address]] Encounters Encounter Provider Location Date Check-In Time Check-Out Time Diagnosis CHART UPDATE KENYA DAUGHERTY RN REED 03/31/2023 2:58PM 11:59PM Insurance Includes: Active Insurance Policies Plan Name Member ID Group # Subscriber Relationship Effect carly Dates 1 - UMR [id number] QUINTON WING Self 2 - UMR [id number] QUINTON WING Self Clinical Notes Includes: Clinical Notes from this encounter * Progress note Date Encounter Last Documented by 03/31/2023 CHART UPDATE Last documented on 03/31/2023; 3:01 PM, KENYA DAUGHERTY RN REED ; [facility] [[email or web address]] Active Problems & Conditions - 610.1 - Diffus Cystic Mastopathy - Z30.41 - Encounter For Contraceptive Pill Surveillance - 345.90 - Epilepsy and Recurrent Seizures - Z80.41 - Maternal History of Ovarian Neoplasm Malignant - mom passed at 67 years old genetic testing negative - N83.201 - Ovarian Cyst Right - Z82.49 - Reported Family History of Heart Disease - mom and dads family - D25.9 - Uterine Neoplasm, Benign Leiomyoma Current Medication - Calcium 600+D 600-400 MG-UNIT Tablet 1 BID WITH FOOD, 0 days, 0 refills - GoodSense Artificial Tears 0.5-0.6% Ophthalmic Solution 0 days, 0 refills - Lacosamide 200 MG Oral Tablet 90 days, 0 refills - LevETIRAcetam 750MG Oral Tablet 750 MG 0 days, 0 refills - Levothyroxine Sodium 150MCG Oral Tablet 150 MCG 0 days, 0 refills - Multi-Day Tablet 1 DAILY, 0 days, 0 refills - Necon 1/35 (28) 1-35 MG-MCG Oral Tablet One tablet daily, 84 days, 3 refills - Nortrel 1/35 (28) 1-35 MG-MCG Oral Tablet One tablet daily, 28 days, 12 refills - Topiramate 100MG Oral Tablet 100 MG 0 days, 0 refills Past Medical/Surgical History Other: Primary Care Provider: PCP-Dr Choudhury neurologist Darcy Chavez Reported: No recent change in medical history PT. HAS EPILEPSY, LMP: 01/02/2023, Last pap smear date 12/2021 result: normal, Last mammogram date: 05/2022 result: normal, and Contraception: NORTREL. Surgical / Procedural: Surgical / procedural history brain surgery -2005. Surgical history unchanged. Tests: A mammogram was performed. : 0. Sexual: Sexually active. Other: Screening mammogram was performed 05/2022 Diagnoses: Ovarian cyst. Hypothyroidism Pt sees Dr. Valdo Garcia at [facility] Seizure disorder, last seizure in 2007. Procedural: - Pap smear done 12/2021 Allergies - Cipro - Dilantin Reaction: , Hives / Urticaria - LaMICtal Reaction: , Hives / Urticaria - Lyrica - Neurontin Reaction: , Hives / Urticaria - Penicillin V Potassium - TEGretol Reaction: , Hives / Urticaria - Trileptal Family History Spouse name: Darrian Heart disease mom and dads family Family history unchanged Cardiac Arrest- sister age 50-09/2022 Systemic hypertension dads family Malignant neoplasm of ovary mom Maternal: Malignant neoplasm of ovary mom passed at 67 years old genetic testing negative Plan StartCited - Encounter for surveillance of contraceptive pills Nortrel (28) 1-35 MG-MCG tablet One tablet daily, 84 days, 2 refills EndCited StartCited - Other PHY ORDER/COMMENT Please inform pt her OCP have been sent to [facility] as requested. Thanks EndCited Health Reminders - Mammogram satisfied 05/11/2022.
--- OUTSIDE RECORDS SUMMARY | 2024-07-13 14:48 | XMS_ITS | Referral Summary ---
Author Organization [facility] Address [address] [place] [address] Care Team Providers Care Retort Fireman Name Role Phone Rodo Choudhury MD Primary Care Provider [phone] Valdo Mcneal MD Unavailable [phone] Kyree Artis MD Unavailable [phone] Alexandra Olivo MD PhD Unavaila ble Lorenzo rCuz MD PhD Unavailable [phone] Encounters Date Type Department Care Team Description 05/06/2024 Telephone [facility] [address] [place] [address] Rodo Choudhury MD Earache from Last 3 Months Allergies Active Allergy Reactions Criticality Noted Date [...] 1 tablet (150 mcg total) by mouth assistant professor of economics before breakfast 90 tablet 1 5 Active [...] reconciled Assessment & Plan (03/29/2024 9:35 AM BEHAVIORAL INSTRUCTOR): IMMUNIZATIONS WERE REVIEWED EYE EXAM AND DENTAL [...] today NL LFT Diffuse cystic mastopathy 09/26/2012 Immunizations Immunization Administration Dates Next Due Influenza, Unspecified 03/29/2024(Deferr ed: Patient Refused),12/11/2022(Deferred: Patient Refused) Tdap 02/12/2009 Social History Tobacco Use Types Packs/Day Years [...] on file Legal Sex Female 12:19 AM BEHAVIORAL INSTRUCTOR Gender Identity Female 10/22/2019 9:31 AM CDT Sexual Orientation Not on file 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 Not on file Not on file Last Filed Vital Signs Vital Sign Reading Time Taken Comments Blood Pressure 120/80 03/29/2024 7:58 AM BEHAVIORAL INSTRUCTOR Pulse 74 03/29/2024 7:58 AM BEHAVIORAL INSTRUCTOR Temperature 36.3 C (97.3 F) 03/29/2024 7:58 AM BEHAVIORAL INSTRUCTOR Respiratory Rate 16 03/29/2024 7:58 AM BEHAVIORAL INSTRUCTOR Oxygen Saturation 99% 03/29/2024 7:58 AM BEHAVIORAL INSTRUCTOR Inhaled Oxygen Concentration - - Weight 51.1 kg (112 lb 9.6 oz) 03/29/2024 7:58 A M BEHAVIORAL INSTRUCTOR Height 157.5 cm (5' 2 ) 03/29/2024 7:58 AM BEHAVIORAL INSTRUCTOR Body Mass Index 20.59 03/29/2024 7:58 AM BEHAVIORAL INSTRUCTOR Plan of Treatment Not on file Insurance [facility] [address] [place] [address] Member Subscriber Plan / Payer (Ef fective 2022-Present) Name:Kathie Wing Relation to Subscriber:Spouse Name:Berlin Wing Date of :1977 (Home) Address: [address] [place] [address] Payer ID:[id number] (NAIC) Type:[facility] Address: [address] [facility] Member Subscriber Plan / Payer ( fective 2022-) Name:Kathie Wing Relation to Subscriber:Spouse Name:Jerry Berlin Goodrich Date of :1977 (Home) Address: [address] [place] [address] Payer ID:[id number] (NAIC) Type:[facility]PP[facility] Address: [address] Care Teams Retort Fireman Relationship Specialty Start Date End Date Rodo Choudhury MD [address] [place] [address] PCP - General 06/10/16 [place] [address] [address] Consulting Physician Endocrinology Diabetes & Metabolism 07/24/17 [place] [address] [address] Field Merchandiser Obstetrics and Gynecology 07/24/17 Alexandra Olivo [place] PhD [address] [address] Surgeon Surgical Oncology 08/02/18 Lorenzo Cruz MD PhD [address] [place] [address] Referring Physician Neurology 09/03/19
--- OUTSIDE RECORDS SUMMARY | 2024-07-13 14:48 | XMS_ITS ---
Care Plan - [facility] Created on: July 13, 2024 QUINTON WING : 1980 Sex: Female Author Organization [facility] Address [address] [place] [address] Phone Care Team Providers Care Audit Control Clerk Name Role Phone KAI SEGOVIA, DANY Gamboa Unavailable [phone] CHRISTOPHER SEGOVIA, DEMETRIUS Conley Primary Care Provider [phone]
--- OUTSIDE RECORDS SUMMARY | 2024-07-13 14:48 | XMS_ITS | Encounter Summary ---
Author Organization [facility] Address [address] [place] [address] Phone Care Team Providers Care Levelman Name Role Phone Rodo Choudhury MD Primary Care Provider [phone] Valdo Mcneal MD Unavailable [phone] Kyree Artis MD Unavailable [phone] Alexandra Olivo MD PhD Unavaila ble Lorenzo Gamino MD PhD Unavailable [phone] Encounter Details Date Type Department Care Team (Late st Contact Info) Description 05/19/2022 Orders Only [facility] [address] [place] [address] Scanning, Provider Social History Tobacco Use Types Packs/Day Years Used Date Smoking Tobacco: Never Smokeless Tobacco: Never Alcohol Use Standard Drinks/Week Comments No 0 (1 standard drink = 0.6 oz pur e alcohol) Comments Unknown Sex and Gender Information Value Date Recorded Sex Assigned at Not on file Legal Sex Female 12:19 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 Gender Identity Female 10/22/2019 9:31 AM CDT Sexual Orientation Not on file 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 Not on file Not on file documented as of this encounter Plan of Treatment Not on file documented as of this encounter Procedures Procedure Name Priority Date/Time Associated Diagnosis Comments SCAN - RADIOLOGY/IMAGING 05/19/2022 documented in this encounter Results * SCAN - RADIOLOGY/IMAGING (05/19/2022) Anatomical Region Laterality Modality Other Provider Scanning Final Result documented in this encounter Visit Diagnoses Not on filedocumented in this encounter Additional Health Concerns Infection Onset Date Last Indicated Resolved Time COVID: Suspected 10/06/2022 10/06/2022 10/06/2022 11:26 AM CDT documented as of this encounter Care Teams Levelman Relationship Specialty Start Date End Date Rodo Choudhury MD [address] [place] [address] PCP - General 06/10/16 [place] [address] [address] Consulting Physician Endocrinology Diabetes & Metabolism 07/24/17 [place] [address] [address] Alum Operator Obstetrics and Gynecology 07/24/17 Alexandra Olivo [place] PhD [address] [address] Surgeon Surgical Oncology 08/02/18 Lorenzo Gamino MD PhD [address] [place] [address] Referring Physician Neurology 09/03/19 documented as of this encounter
--- OUTSIDE RECORDS SUMMARY | 2024-07-13 14:48 | XMS_ITS | Encounter Summary ---
Author Organization [facility] Address [address] [place] [address] Phone Care Team Providers Care Ladle Builder Name Role Phone Rodo Choudhury MD Primary Care Provider [phone] Valdo Mcneal MD Unavailable [phone] Kyree Artis MD Unavailable Alexandra Olivo MD PhD Unavaila ble Lorenzo Gamino MD PhD Unavailable [phone] Encounter Details Date Type Department Care Team (Late st Contact Info) Description 02/08/2021 Orders Only [facility] [address] [place] [address] Scanning, Provider Social History Tobacco Use Types Packs/Day Years Used Date Smoking Tobacco: Never Smokeless Tobacco: Never Alcohol Use Standard Drinks/Week Comments No 0 (1 standard drink = 0.6 oz pur e alcohol) Comments Yes Sex and Gender Information Value Date Recorded Sex Assigned at Not on file Legal Sex Female 12:19 AM LEARNING ENGINEER Gender Identity Female 10/22/2019 9:31 AM CDT Sexual Orientation Not on file 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 Not on file Not on file documented as of this encounter Plan of Treatment Not on file documented as of this encounter Procedures Procedure Name Priority Date/Time Associated Diagnosis Comments SCAN - LABS 02/08/2021 documented in this encounter Results * SCAN - LABS (02/08/2021) us Provider Scanning Final Result documented in this encounter Visit Diagnoses Not on filedocumented in this encounter Additional Health Concerns Infection Onset Date Last Indicated Resolved Time COVID: Suspected 10/06/2022 10/06/2022 10/06/2022 11:26 AM CDT documented as of this encounter Care Teams Ladle Builder Relationship Specialty Start Date End Date Rodo Choudhury MD [address] [place] [address] PCP - General 06/10/16 [place] [address] [address] Consulting Physician Endocrinology Diabetes & Metabolism 07/24/17 [place] [address] [address] Patient Scheduling Coordinator Obstetrics and Gynecology 07/24/17 [place] Olivo [place] PhD [address] [address] Surgeon Surgical Oncology 08/02/18 Lorenzo Gamino MD PhD [address] [place] [address] Referring Physician Neurology 09/03/19 documented as of this encounter
--- OUTSIDE RECORDS SUMMARY | 2024-07-13 14:48 | XMS_ITS | Clinical Summary ---
Author Organization [facility] Address [address] [place], [place] Phone Care Team Providers Care Data Report Analyst Name Role Phone KAI SEGOVIA, DANY Gamboa Unavailable [phone] MACEY SEGOVIA, DEMETRIUS Conley Primary Care Provider [phone] Reason for Visit and Chief Complaint * PHONE CALL Problems Includes: Problems addressed during this encounter and other active Problems Current Visit Onset Date Resolved Date Provider Conditio n Status Reported Family History of Heart Disease 11/25/2015 KENYA DAUGHERTY RN REED Active Last Documented On 11/25/2015 9:04AM ; [facility] Note: Unchanged - mom and dads family Past Visits Onset Date Resolved Date Provider Condition Status Ovarian Cyst Right 03/21/2022 KENYA DAUGHERTY RN REED Active Last Documented On 3 8:44AM ; [facility] Uterine Neoplasm, Benign Leiomyoma 03/21/2022 Bee DAUGHERTY RN REED Active Last Documented On 3 8:43AM ; [facility] Encounter For Contraceptive Pill Surveillance 09/26/2012 KENYA DAUGHERTY RN REED Active Last Documented On 6 9:02AM ; [facility] 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/26/2012 DANY GARCIA MD Active Last Documented On 3 2:09PM ; [facility] Epilepsy and Recurrent Seizures 09/26/2012 DANY QUINN MD Active Last Documented On 3 2:10PM ; [facility] Plan of Treatment No Plan of Treatment Recorded Assessments Includes: Assessments from this encounter No Assessments Recorded Medical Equipment - Implanted Devices Includes: Current Devices No Medical Equipment Recorded Medications Includes: Medications discussed during this encounter and other current Medications New / Renewed during this visit KENYA LANTIGUA BC on 02/28/2022 Terconazole 80 MG Vaginal Suppository Provider: KENYA SHEPPARD P 3 day supply: 3 suppository, 0 refills Diagnosi s: Acute vaginitis as directed ONE SUPP IN VAGI NA EVERY NIGHT X 3 [facility], [phone] - Last Documented On 2 3:27PM By KENYA LANTIGUA-DMITRI ; [facility] Current Medications (continue as prescribed) Lacosamide 200 MG Oral Tablet 11/10/2021 Provider: SHAHLA CRUZ MD Diagnosis: Last Documented On 01/06/2022 8:23AM By Shruthi Grimaldo ; [facility] GoodSense Artificial Tears 0.5-0.6% Ophthalmic Solutio n 12/30/2019 Provider: Diagnosis: Last Documented On 0 8:16AM By JUAN DANIEL RITCHIE LPN ; [facility] LevETIRAcetam 750MG Oral Tablet 12/04/2017 Provider: Diagnosis: Last Documented On 8 10:21AM By JOE TREVIÑO ; [facility] Topiramate 100MG Oral Tablet 12/04/2017 Provider: Diagnosis: Last Documented On 8 10:23AM By JOE TREVIÑO ; [facility] Levothyroxine Sodium 150MCG Oral Tablet 12/04/2017 P rovider: Diagnosis: Last Documented On 8 10:21AM By JOE TREVIÑO ; [facility] Calcium 600+D 600-400 MG-UNIT OR TABS 02/08/2011 Pro vider: Diagnosis: 1 BID WITH FOOD Last Documented On 02/08/2011 12:55PM By ABIMAEL VILLEGAS LPN ; [facility] Multi-Day OR TABS 02/08/2011 Provider: Diagnosis: 1 DAILY Last Documented On 02/08/2011 12:51PM By ABIMAEL VILLEGAS LPN ; [facility] Past Medications on file Nortrel 35 (28) 1-35 MG-MCG Oral Tablet 03/31/2023 - 12/08/2023 Provider: KENYA DAUGHERTY RN REED Diagnosis: Encounter for surveillance of contraceptive pills One tablet daily Last Documented On 4 3:01PM By KENYA HUA ; [facility] Necon 35 (28) 1-35 MG-MCG Oral Tablet 05/17/2022 - 04/18/2023 Provider: KENYA DAUGHERTY RN REED Diagnosis: Encounter for dalal rveillance of contraceptive pills One tablet daily Last Documented On 3 2:02PM By KENYA HUA ; [facility] Terconazole 0.8 % Cream 01/14/2016 - 01/17/2016 Provider: KENYA DAUGHERTY RN REED Diagnosis: Candidiasis of v ulva and vagina as directed USE 1 MANINDER IN VAG DEWIGE AT HS X 3 APPLY TO PERINEUM BID Last Documented On 6 12:07PM By KENYA HUA ; [facility] Diflucan 150 MG Tablet 01/13/2015 - 01/25/2015 Provide r: DANY QUINN MD Diagnosis: Sig: one po Last Documented On 01/13/2015 3:54PM By DANY QUINN MD ; [facility] Fluconazole 150 MG Tablet 11/18/2014 - 11/19/2014 Provider: KENYA DAUGHERTY RN REED Diagnosis: CANDIDAL VULVOVA GINITIS ONE TAB TODAY Last Documented On 5 11:16AM By KENYA HUA ; [facility] Medications Administered Includes: Administered Medications from this [...] Surgical history unchanged 11/11/2014 Last Documented On 2 3:18PM ; [facility] Surgical / procedural history brain surg jaylen -200506/28/2012 Last Documented On 2 3:18PM ; [facility] Medical History Includes: Medical History addressed during this encounter Description Last Updated LMP: 12/28/2021 01/19/2023 Last Documented On 2 3:18PM ; [facility] History of Pap smear done 12/25/201811/2022 Last Documented On 2 3:18PM ; [facility] History of screening mammogram was perfo rmed 05/202101/19/2023 Last Documented On 2 3:18PM ; [facility] Last mammogram date: 05/202101/19/2023 Last Documented On 2 3:18PM ; [facility] Last pap smear date 12/202001/19/2023 Last Documented On 2 3:18PM ; [facility] A mammogram was performed 01/06/2022 Last Documented On 2 3:18PM ; [facility] PRIMARY CARE PROVIDER : PCP-Dr Macey ugalde eurologist Darcy Chavez 12/30/2019 Last Documented On 2 3:18PM ; [facility] Result: normal 12/30/2019 Last Documented On 2 3:18PM ; [facility] 0 12/01/2016 Last Documented On 2 3:18PM ; [facility] Sexually active 12/01/2016 Last Documented On 2 3:18PM ; [facility] Result: normal 12/01/2016 Last Documented On 2 3:18PM ; [facility] No recent change in medical history PT. HAS EPILEPSY 11/11/2014 Last Documented On 2 3:18PM ; [facility] History of hypothyroidism Pt sees Dr. Taylor at [facility] 10/23/2013 Last Documented On 2 3:18PM ; [facility] Contraception: NORTREL 10/23/2013 Last Documented On 2 3:18PM ; [facility] History of ovarian cyst 06/28/2012 Last Documented On 2 3:18PM ; [facility] Seizure disorder, last seizure in 2008 0 06/28/2012 Last Documented On 2 3:18PM ; [facility] Family History Includes: Family History addressed during this encounter Description Last Updated Maternal history of malignan t neoplasm of the ovary mom passed at 67 years old genetic testing negative 11/25/2015 Last Documented On 2 3:18PM ; [facility] Family history of heart disease mom and dads family 11/11/2014 Last Documented On 2 3:18PM ; [facility] Family history of hypertension dads fami ly 11/11/2014 Last Documented On 2 3:18PM ; [facility] Family history of malignant neoplasm of the ovary mom 11/11/2014 Last Documented On 2 3:18PM ; [facility] Family history unchanged 11/11/2014 Last Documented On 2 3:18PM ; [facility] Spouse name: Darrian 06/28/2012 Last Documented On 2 3:18PM ; [facility] Review of Systems Includes: Review of [...] Active Last Documented On 3 2:16PM ; [facility] TEGretol Allergy Skin Rashes / Er uption of skin, Hives / Urticaria 02/08/2011 Active Last Documented On 3 2:16PM ; [facility] Penicillin V Potassium Allergy 02/08/2011 Active Last Documented On 3 2:16PM ; [facility] Neurontin Allergy Skin Rashes / Er uption of skin, Hives / Urticaria 02/08/2011 Active Last Documented On 3 2:16PM ; [facility] Lyrica Allergy 02/08/2011 Active Last Documented On 3 2:16PM ; [facility] LaMICtal Allergy Skin Rashes / Er uption of skin, Hives / Urticaria 02/08/2011 Active Last Documented On 3 2:16PM ; [facility] Dilantin Allergy Skin Rashes / Er uption of skin, Hives / Urticaria 02/08/2011 Active Last Documented On 3 2:16PM ; [facility] Cipro Allergy 02/08/2011 Active Last Documented On 3 2:16PM ; [facility] Encounters Encounter Provider Location Date Check-In Time Check-Out Time Diagnosis * PHONE CALL KENYA DAUGHERTY RN [facility] 02/28/2022 3:18PM 11:59PM Insurance Includes: Active Insurance Policies Plan Name Member ID Group # Subscriber Relationship Effect carly Dates 1 - R [id number] QUINTON WING Self 2 - R [id number] QUINTON Zaragoza Clinical Notes Includes: Clinical Notes from this encounter No Clinical Notes Recorded
--- OUTSIDE RECORDS SUMMARY | 2024-07-13 14:48 | XMS_ITS | Encounter Summary ---
Author Organization [facility] Address [address] [place] [address] Phone Care Team Providers Care Housekeeping Cleaner Name Role Phone Rodo Choudhury MD Primary Care Provider [phone] Valdo Mcneal MD Unavailable [phone] Kyree Artis MD Unavailable [phone] Alexandra Olivo MD PhD Unavaila ble Lorenzo Gamino MD PhD Unavailable [phone] Encounter Details Date Type Department Care Team (Late st Contact Info) Description 12/16/2020 Orders Only [facility] [address] [place] [address] Scanning, Provider Social History Tobacco Use Types Packs/Day Years Used Date Smoking Tobacco: Never Smokeless Tobacco: Never Alcohol Use Standard Drinks/Week Comments No 0 (1 standard drink = 0.6 oz pur e alcohol) Comments Yes Sex and Gender Information Value Date Recorded Sex Assigned at Not on file Legal Sex Female 12:19 AM BOX ESTIMATOR Gender Identity Female 10/22/2019 9:31 AM CDT Sexual Orientation Not on file 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 Not on file Not on file documented as of this encounter Plan of Treatment Not on file documented as of this encounter Procedures Procedure Name Priority Date/Time Associated Diagnosis Comments SCAN - LABS 12/16/2020 documented in this encounter Results * SCAN - LABS (12/16/2020) us Provider Scanning Edited Result - Final documented in this encounter Visit Diagnoses Not on filedocumented in this encounter Additional Health Concerns Infection Onset Date Last Indicated Resolved Time COVID: Suspected 10/06/2022 10/06/2022 10/06/2022 11:26 AM CDT documented as of this encounter Care Teams Housekeeping Cleaner Relationship Specialty Start Date End Date Rodo Choudhury MD [address] [place] [address] PCP - General 06/10/16 [place] [address] [facility] [address] [place] [address] Consulting Physician Endocrinology Diabetes & Metabolism 07/24/17 [place] [address] [address] [facility] [address] [place] [address] Administration Internship Obstetrics and Gynecology 07/24/17 [place] PhD [address] [address] [facility] [address] [place] [address] Surgeon Surgical Oncology 08/02/18 Lorenzo Gamino MD PhD [address] [place] [address] Referring Physician Neurology 09/03/19 documented as of this encounter
--- OUTSIDE RECORDS SUMMARY | 2024-07-13 14:48 | XMS_ITS | Encounter Summary ---
Author Organization [facility] Address [address] [place] [address] Phone Care Team Providers Care Fish Bailer Name Role Phone Rodo Choudhury MD Primary Care Provider [phone] Valdo Mcneal MD Unavailable [phone] Kyree Artis MD Unavailable [phone] Alexandra Olivo MD PhD Unavaila ble Lorenzo Gamino MD PhD Unavailable [phone] Encounter Details Date Type Department Care Team (Late st Contact Info) Description 04/26/2021 Orders Only [facility] [address] [place] [address] Scanning, Provider Social History Tobacco Use Types Packs/Day Years Used Date Smoking Tobacco: Never Smokeless Tobacco: Never Alcohol Use Standard Drinks/Week Comments No 0 (1 standard drink = 0.6 oz pur e alcohol) Comments Yes Sex and Gender Information Value Date Recorded Sex Assigned at Not on file Legal Sex Female 12:19 AM [employer] Gender Identity Female 10/22/2019 9:31 AM CDT Sexual Orientation Not on file 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 Not on file Not on file documented as of this encounter Plan of Treatment Not on file documented as of this encounter Procedures Procedure Name Priority Date/Time Associated Diagnosis Comments SCAN - LABS 04/26/2021 documented in this encounter Results * SCAN - LABS (04/26/2021) us Provider Scanning Edited Result - Final documented in this encounter Visit Diagnoses Not on filedocumented in this encounter Additional Health Concerns Infection Onset Date Last Indicated Resolved Time COVID: Suspected 10/06/2022 10/06/2022 10/06/2022 11:26 AM CDT documented as of this encounter Care Teams Fish Bailer Relationship Specialty Start Date End Date Rodo Choudhury MD [address] [place] [address] PCP - General 06/10/16 [place] [address] [facility] [address] [place] [address] Consulting Physician Endocrinology Diabetes & Metabolism 07/24/17 [place] [address] [facility] [address] [place] [address] Steam Table Attendant Obstetrics and Gynecology 07/24/17 [place]andra Olivo [place] PhD [address] [facility] [address] [place] [address] Surgeon Surgical Oncology 08/02/18 Lorenzo Gamino MD PhD [address] [place] [address] Referring Physician Neurology 09/03/19 documented as of this encounter
--- OUTSIDE RECORDS SUMMARY | 2024-07-13 14:48 | XMS_ITS | Encounter Summary ---
Author Organization [facility] Address [address] [place] [address] Phone Care Team Providers Care Educational Paraprofessional Name Role Phone Rodo Choudhury MD Primary Care Provider [phone] Valdo Mcneal MD Unavailable [phone] Kyree Artis MD Unavailable [phone] Alexandra Olivo MD PhD Unavaila ble Lorenzo Gamino MD PhD Unavailable [phone] Encounter Details Date Type Department Care Team (Late st Contact Info) Description 08/19/2021 Orders Only [facility] [address] [place] [address] Scanning, Provider Social History Tobacco Use Types Packs/Day Years Used Date Smoking Tobacco: Never Smokeless Tobacco: Never Alcohol Use Standard Drinks/Week Comments No 0 (1 standard drink = 0.6 oz pur e alcohol) Comments Unknown Sex and Gender Information Value Date Recorded Sex Assigned at Not on file Legal Sex Female 12:19 AM HOME HELP AIDE Gender Identity Female 10/22/2019 9:31 AM CDT Sexual Orientation Not on file 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 Not on file Not on file documented as of this encounter Plan of Treatment Not on file documented as of this encounter Procedures Procedure Name Priority Date/Time Associated Diagnosis Comments SCAN - LABS 08/19/2021 documented in this encounter Results * SCAN - LABS (08/19/2021) us Provider Scanning Final Result documented in this encounter Visit Diagnoses Not on filedocumented in this encounter Additional Health Concerns Infection Onset Date Last Indicated Resolved Time COVID: Suspected 10/06/2022 10/06/2022 10/06/2022 11:26 AM CDT documented as of this encounter Care Teams Educational Paraprofessional Relationship Specialty Start Date End Date Rodo Choudhury MD [address] [place] [address] PCP - General 06/10/16 [place] [address] [address] Consulting Physician Endocrinology Diabetes & Metabolism 07/24/17 [place] [address] [address] Supervisor Dry Cleaning Obstetrics and Gynecology 07/24/17 [place] Ol[place] PhD [address] [address] Surgeon Surgical Oncology 08/02/18 Lorenzo Gamino MD PhD [address] [place] [address] Referring Physician Neurology 09/03/19 documented as of this encounter
--- OUTSIDE RECORDS SUMMARY | 2024-07-13 14:49 | XMS_ITS | Clinical Summary ---
Author Organization [facility] Address [address] [place] [address] Care Team Providers Care Fuel Dock Attendant Name Role Phone Rodo Choudhury MD Primary Care Provider [phone] Source Comments [facility],non-[facility] Affiliates and Associated Physician Practices is amultiple site organization consisting of ambulatory clinics and hospital sitesin [place], [place], [place] and [place]. This disclosure is being madepursuant to the Care Everywhere program and may not contain all information available regarding this patient. Last updated 17.[facility] E la Carte Allergies Active Allergy Reactions Criticality Noted Date Comments Ciprofloxacin 07/14/2016 Phenytoin Rash Medium 07/14/2016 Lamotrigine 07/14/2016 Pregabalin Rash Medium 07/14/2016 Gabapentin Rash Medium 07/14/2016 Penicillins Rash Medium 07/14/2016 Carbamazepine Rash Medium 07/14/2016 Oxcarbazepine Rash Medium 07/14/2016 Medications * Be aware that medications may not be up to date on this document. Alwaysverify current medications with the patient. norethindrone- ethinyl estradiol (Ortho-Novum ) 1-35 MG-MCG tablet Take 1 (one) tablet by mouth once daily Active levothyroxine (SYNTHROID) 150 MCG tablet Take 1 (one) tablet by mouth daily before breakfast Active magnesium 500 MG tablet Take 400 mg by mouth once daily Active Hypromellose (ARTIFICIAL TEARS OP) by Ophthalmic route 2 times daily Active Calcium Carb-Cholecalc iferol (CALCIUM 600 + D PO) Take by mouth 2 times daily Active topiramate (TOPAMAX) 100 MG tablet TAKE 2 AND 1/2 TABLETS BY MOUTH IN THE MORNING AND 2 TABLETS IN THE EVENING 405 tablet 3 8 Active levETIRAcetam CR 24hr (KEPPRA XR) 750 MG tablet TAKE 4 TABLETS BY MOUTH ONCE DAILY 360 tablet 3 9 Active topiramate (TOPAMAX) 100 MG tablet TAKE 2 AND 1/2 TABLETS BY MOUTH IN THE MORNING AND 2 TABLETS IN THE EVENING 405 tablet 3 9 Active hydrocortisone (Anusol-HC) 25 MG suppositoryInd ications:Vagin al discharge Use to vagina twice weekly 24 suppository 2 3 Active Active Problems Problem Noted Date Diagnosed Date Cyst of right ovary 03/21/2022 Leiomyoma of uterus 03/21/2022 Benign paroxysmal positional vertigo due to bilateral vestibular disorder 03/01/2017 Acquired hypothyroidism 07/27/2013 Overview (04/28/2022): HYPOTHYROIDISM NOS Focal epilepsy with impairment of consciousness 07/27/2013 Overview (04/28/2022): Seizure disorder Nontoxic uninodular goiter 07/27/2013 Overview (04/28/2022): NONTOX UNINODULAR GOITER Diffuse cystic mastopathy 09/26/2012 Epilepsy 09/26/2012 Family History Medical History Relation Name Comments Hypertension Brother 1 Mental Illness Brother 1 Schizophrenia Brother 1 Depression Brother 2 suicide CAD (Coronary Artery Disease) Maternal Grandfather CVA Maternal Grandfather Depression Maternal Grandmother Cancer Mother COPD - Chronic Obstructive P ulmonary Disease Paternal Grandfather CAD (Coronary Artery Disease) Paternal Grandmother open heart surgery Alcohol abuse Sister Depression Sister Relation Name Status Comments Brother 1 Alive Brother 2 Father Maternal Grandfather Maternal Grandmother Mother Paternal Grandfather Paternal Grandmother Sister Alive Social History Tobacco Use Types Packs/Day Years Used Date Smoking Tobacco: Never Smokeless Tobacco: Never Tobacco Cessation:Counseling Given: Not Answered Alcohol Use Standard Drinks/Week Comments No 0 (1 standard drink = 0.6 oz pur e alcohol) PHQ-2 Answer Date Recorded PHQ2 TOTAL SCORE 0 08/01/2022 Comments Unknown Sex and Gender Information Value Date Recorded Sex Assigned at Not on file Legal Sex Female 10:04 AM CDT Gender Identity Not on file Sexual Orientation Not on file Last Filed Vital Signs Vital Sign Reading Time Taken Comments Blood Pressure 106/68 08/02/2022 10:48 AM CDT Pulse 72 07/12/2018 9:22 AM CDT Temperature - - Respiratory Rate 18 07/12/2018 9:22 AM CDT Oxygen Saturation 97% 07/12/2018 9:22 AM CDT Inhaled Oxygen Concentration - - Weight 49.4 kg (109 lb) 08/02/2022 10:48 AM CDT Height 157.5 cm (5' 2 ) 08/02/2022 10:48 AM CDT Body Mass Index 19.94 08/02/2022 10:48 AM CDT Plan of Treatment Health Maintenance Due Date Last Done Comments COLOGUARD (AGES 45-75) - COL ON CA SCREENING 1978 COLON MONITORING 1978 COLONOSCOPY - COLON CA SCREENING 1978 CT COLONOGRAPHY - COLON CA SCREENING 1978 FLEX SIG - COLON CA SCREENING 1978 LIPID TESTING 1978 MAMMOGRAM 1978 HIV SCREENING 1993 HEPATITIS C SCREENING 01/12/1996 DTAP/TDAP/TD VACCINES (1 - Tdap) 1997 HEPATITIS B VACCINE (1 of 3 - 19+ 3-dose series) 1997 Colorectal Cancer Screening 01/06/2023 FIT - COLON CA SCREENING 01/06/2023 01/06/2022 COVID-19 VACCINE (3 - 2023-2 5 season) 2023 05/29/2020, 05/01/2020 DEPRESSION SCREENING 03/13/2024 08/02/2022 INFLUENZA VACCINE (Season Ended) 2024 PAP SMEAR 01/06/2025 01/06/2022 ZOSTER VACCINE (1 of 2) 01/17/2028 HIB VACCINE Aged Out No longer eligi ble based on patient's age to complete this topic HPV VACCINE Aged Out No longer eligi ble based on patient's age to complete this topic MENINGOCOCCAL (Group B) VACCINE SHARED DECISION-MAKING Aged Out No longer eligible based on patient's age to complete this topic MENINGOCOCCAL GROUPS A/C/Y/W VACCINE Aged Out No longer eligible b ased on patient's age to complete this topic PNEUMOCOCCAL VACCINE Aged Out No long er eligible based on patient's age to complete this topic Insurance [facility] Care Teams Fuel Dock Attendant Relationship Specialty Start Date End Date Rodo Choudhury MD [address] [place] [address] PCP - General Internal Medicine 08/02/22
--- OUTSIDE RECORDS SUMMARY | 2024-07-13 14:49 | XMS_ITS | Clinical Summary ---
Author Organization [facility] Address [address] [place] [address] Phone Care Team Providers Care Studio Producer Name Role Phone KAI SEGOVIA, DANY Gamboa Unavailable [phone] DEMETRIUS CHOUDHURY MD Primary Care Provider [phone] Reason for Visit and Chief Complaint gynecologic annual exam - The Chief Complaint is: WWE. No problems Problems Includes: Problems addressed during this encounter and other active Problems Current Visit Onset Date Resolved Date Provider Conditio n Status Reported Family History of Heart Disease 11/25/2015 KENYA DAUGHERTY RN [facility] Active Last Documented On 11/25/2015 9:04AM ; [facility] Note: Unchanged - mom and dads family Past Visits Onset Date Resolved Date Provider Condition Status Ovarian Cyst Right 03/21/2022 KENYA DAUGHERTY RN [facility] Active Last Documented On 3 8:44AM ; [facility] Uterine Neoplasm, Benign Leiomyoma 03/21/2022 Bee DAUGHERTY RN [facility] Active Last Documented On 3 8:43AM ; [facility] Encounter For Contraceptive Pill Surveillance 09/26/2012 KENYA DAUGHERTY RN [facility] Active Last Documented On 6 9:02AM ; [facility] 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/26/2012 DANY GARCIA MD Active Last Documented On 3 2:09PM ; [facility] Epilepsy and Recurrent Seizures 09/26/2012 DANY QUINN MD Active Last Documented On 3 2:10PM ; [facility] Plan of Treatment - Clinical summary provided to patient - Last Documented On 01/19/2023 2:44PM ; [facility] PT TO CALL WITH ANY CHANGE IN STATUS ALL QUESTIONS ANSWERED WITH UNDERSTANDING VERBALIZED BY PT. - Last Documented On 01/19/2023 2:44PM ; [facility] Pending Tests Order Diagnosis Results Due Ordering Dom tolliver In office procedures - *Clia Waived Labs *FOBT* Fecal Occult Blood Test Encounter for screening for malignant neoplasm of colon 02/02/23 KENYA DAUGHERTY RN [facility] Last Documented On 4 8:03AM ; [facility] Instructions to patient Instructed to call if excess carly bleeding or abdominal/pelvic pain Last Documented On 3 2:24PM ; [facility] Instructions For Patient: Mo nthly Self Breast Exam Last Documented On 3 2:24PM ; [facility] Recommend diet and exercise at least 30 min three times per week Last Documented On 3 2:24PM ; [facility] Education and Decision Aids were provided during visit for: Patient education RE: lolly burciaga signals associated with hormonal contraceptive use including abdominal, chest, or leg pain, headaches or visual disturbances Last Documented On 3 2:24PM ; [facility] Patient Education: Daily araseli cium and vitamin D Last Documented On 3 2:24PM ; [facility] Assessments Includes: Assessments from this encounter Findings - [Z01.419 - Encounter for gynecological examination (general) (routine) without abnormal findings] NORMAL FEMALE EXAM - Last Documented On 01/19/2023 2:44PM ; [facility] - [Z12.4 - Encounter for screening for malignant neoplasm of cervix] Screen malignant neoplasm cervix - Last Documented On 01/19/2023 2:44PM ; [facility] Instructions Includes: Instructions from this encounter Instructions to patient Instructed to call if excess carly bleeding or abdominal/pelvic pain Last Documented On 3 2:24PM ; [facility] Instructions For Patient: Mo nthly Self Breast Exam Last Documented On 3 2:24PM ; [facility] Recommend diet and exercise at least 30 min three times per week Last Documented On 3 2:24PM ; [facility] Education and Decision Aids were provided during visit for: Patient education RE: jordenlex burciaga signals associated with hormonal contraceptive use including abdominal, chest, or leg pain, headaches or visual disturbances Last Documented On 3 2:24PM ; [facility] Patient Education: Daily araseli cium and vitamin D Last Documented On 3 2:24PM ; [facility] Medical Equipment - Implanted Devices Includes: Current Devices No Medical Equipment Recorded Medications Includes: Medications discussed during this encounter and other current Medications New / Renewed during this visit KENYA LANTIGUA on 01/19/2023 Nortrel 1/35 (28) 1-35 MG-MCG Oral Tablet Provider: KENYA RIZVI 28 day supply: 28 tablet, 12 refills Diagnosis: Encounter for surveillance o f contraceptive pills One tablet daily Pharmacy: [address] [address] Last Documented On 4 3:00PM By KENYA LANTIGUA- ; [facility] Current Medications (continue as prescribed) Lacosamide 200 MG Oral Tablet 11/10/2021 Provider: SHAHLA CRUZ MD Diagnosis: Last Documented On 01/06/2022 8:23AM By Shruthi Grimaldo ; [facility] GoodSense Artificial Tears 0.5-0.6% Ophthalmic Solutio n 12/30/2019 Provider: Diagnosis: Last Documented On 0 8:16AM By JUAN DANIEL RITCHIE LPN ; [facility] LevETIRAcetam 750MG Oral Tablet 12/04/2017 Provider: Diagnosis: Last Documented On 8 10:21AM By JOE TREVIÑO ; [facility] Topiramate 100MG Oral Tablet 12/04/2017 Provider: Diagnosis: Last Documented On 8 10:23AM By JOE TREVIÑO ; [facility] Levothyroxine Sodium 150MCG Oral Tablet 12/04/2017 Dom tolliver: Diagnosis: Last Documented On 8 10:21AM By JOE TREVIÑO ; [facility] Calcium 600+D 600-400 MG-UNIT OR TABS 02/08/2011 Pro vider: Diagnosis: 1 BID WITH FOOD Last Documented On 02/08/2011 12:55PM By ABIMAEL VILLEGAS LPN ; [facility] Multi-Day OR TABS 02/08/2011 Provider: Diagnosis: 1 DAILY Last Documented On 02/08/2011 12:51PM By ABIMAEL VILLEGAS LPN ; [facility] Past Medications on file Nortrel 35 (28) 1-35 MG-MCG Oral Tablet 03/31/2023 - 12/08/2023 Provider: KENYA DAUGHERTY RN [facility] Diagnosis: Encounter for surveillance of contraceptive pills One tablet daily Last Documented On 4 3:01PM By KENYA HUA ; [facility] Necon /35 (28) 1-35 MG-MCG Oral Tablet 05/17/2022 - 04/18/2023 Provider: KENYA DAUGHERTY RN [facility] Diagnosis: Encounter for dalal rveillance of contraceptive pills One tablet daily Last Documented On 3 2:02PM By KENYA HUA ; [facility] Terconazole 80 MG Vaginal Suppository 02/28/2022 - 03/03/2022 Provider: KENYA LANTIGUA Diagnosis: Acute vaginitis as directed ONE SUPP IN VAGINA EVERY NIGHT X 3 Last Documented On 2 3:27PM By KENYA HUA ; [facility] Terconazole 0.8 % Cream 01/14/2016 - 01/17/2016 Provider: KENYA DAUGHERTY RN [facility] Diagnosis: Candidiasis of v ulva and vagina as directed USE 1 MANINDER IN VAG EDWIGE AT HS X 3 APPLY TO PERINEUM BID Last Documented On 6 12:07PM By KENYA HUA ; [facility] Diflucan 150 MG Tablet 01/13/2015 - 01/25/2015 Provide r: DANY QUINN MD Diagnosis: Sig: one po Last Documented On 01/13/2015 3:54PM By DANY QUINN MD ; [facility] Fluconazole 150 MG Tablet 11/18/2014 - 11/19/2014 Provider: KENYA DAUGHERTY RN [facility] Diagnosis: CANDIDAL VULVOVA GINITIS ONE TAB TODAY Last Documented On 5 11:16AM By KENYA LANTIGUA- ; [facility] Medications Administered Includes: Administered Medications from this encounter No Administered Medications Recorded Vital Signs Includes: Vital Signs from this encounter Vital Name 01/19/2023 02:14P Blood Pressure Sitting L 116/80 BP Cuff Size Regular Temp-Temporal 97.4 Height (in) 62 Weight (lb) 109 Body Mass Index 19.9 Body Surface Area 1.5 Last Documented: On 01/19/2023 2:19PM ; [facility] Results Includes: Results discussed during this encounter No Results Recorded For Specified Dates History of Present Illness Includes: History of Present Illness from this encounter HPI - Allergy list reviewed - Medication list reviewed Pt reports she began spotting today despite timely correct OCP use, admits she is under alot of stress with work and her sister, who is living at her house after [place]. 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 01/19/2023 Last Documented On 3 2:44PM ; [facility] Activities 01/19/2023 Last Documented On 3 2:44PM ; [facility] Alcohol use: 2 drinks or less per day no ne 01/19/2023 Last Documented On 3 2:44PM ; [facility] Amount of sleep 01/19/2023 Last Documented On 3 2:44PM ; [facility] control is being practiced OCPs Last Documented On 3 2:44PM ; [facility] Education history 01/19/2023 Last Documented On 3 2:44PM ; [facility] Educational level 01/19/2023 Last Documented On 3 2:44PM ; [facility] Marital history 01/19/2023 Last Documented On 3 2:44PM ; [facility] No recent change in sleep 01/19/2023 Last Documented On 3 2:44PM ; [facility] Non-smoker 01/19/2023 Last Documented On 3 2:44PM ; [facility] Not a smoker 01/19/2023 Last Documented On 3 2:44PM ; [facility] Not exercising regularly 01/19/2023 Last Documented On 3 2:44PM ; [facility] Not using alcohol 01/19/2023 Last Documented On 3 2:44PM ; [facility] Not using drugs 01/19/2023 Last Documented On 3 2:44PM ; [facility] Nutritious and satisfying diet 3 Last Documented On 3 2:44PM ; [facility] Personal history 01/19/2023 Last Documented On 3 2:44PM ; [facility] Sexually active 01/19/2023 Last Documented On 3 2:44PM ; [facility] Sexually active with 1 partners in the l ast year 01/19/2023 Last Documented On 3 2:44PM ; [facility] Smoking status : Never smoker 01/19/2023 Last Documented On 3 2:44PM ; [facility] Social history unchanged 01/19/2023 Last Documented On 3 2:44PM ; [facility] Tobacco non-user 01/19/2023 Last Documented On 3 2:44PM ; [facility] Procedures and Surgical History Includes: Procedures from this encounter Procedures Code Diagnosis Performing Provider Service L ocation Service Date education and instructions Pt due for lipid serology prior to her annual PCP appt. and will have a copy of her results forwarded to us Last Documented On 3 2:40PM ; [facility] explanation of plan Pt. to b e contacted with all results for plan of care and questions answered Last Documented On 3 2:43PM ; [facility] medical regimen review Last Documented On 3 2:24PM ; [facility] Discussed Contraception Last Documented On 3 2:24PM ; [facility] Urged Exercise and Diet , exercise at le ast 30 min three times per week Last Documented On 3 2:24PM ; [facility] a mammogram was performed 05/2022 Last Documented On 3 2:14PM ; [facility] cervical Pap smear 43621 Last Documented On 3 2:24PM ; [facility] history of cervical Pap smear 12/2021 [address] Last Documented On 3 2:20PM ; [facility] FIT Test-Fecal Occult negative 77577 Last Documented On 3 2:24PM ; [facility] Surgical History Last Updated Surgical history unchanged 11/11/2014 Last Documented On 3 2:13PM ; [facility] Surgical / procedural history brain surg jaylen 03-200506/28/2012 Last Documented On 3 2:13PM ; [facility] Medical History Includes: Medical History addressed during this encounter Description Last Updated LMP: 01/02/2023 01/19/2023 Last Documented On 3 2:44PM ; [facility] History of Pap smear done 12/2021 Last Documented On 3 2:44PM ; [facility] History of screening mammogram was perfo rmed 05/202201/19/2023 Last Documented On 3 2:44PM ; [facility] Last mammogram date: 05/202201/19/2023 Last Documented On 3 2:44PM ; [facility] Last pap smear date 12/202101/19/2023 Last Documented On 3 2:44PM ; [facility] A mammogram was performed 01/06/2022 Last Documented On 3 2:13PM ; [facility] PRIMARY CARE PROVIDER : PCP-Dr Choudhury ~n eurologist Darcy Chavez 12/30/2019 Last Documented On 3 2:13PM ; [facility] 0 12/01/2016 Last Documented On 3 2:13PM ; [facility] Sexually active 12/01/2016 Last Documented On 3 2:13PM ; [facility] Result: normal 12/01/2016 Last Documented On 3 2:13PM ; [facility] No recent change in medical history PT. HAS EPILEPSY 11/11/2014 Last Documented On 3 2:13PM ; [facility] History of hypothyroidism Pt sees Dr. Taylor at [facility] 10/23/2013 Last Documented On 3 2:13PM ; [facility] Contraception: NORTREL 10/23/2013 Last Documented On 3 2:13PM ; [facility] History of ovarian cyst 06/28/2012 Last Documented On 3 2:13PM ; [facility] Seizure disorder, last seizure in 2007 0 06/28/2012 Last Documented On 3 2:13PM ; [facility] Family History Includes: Family History addressed during this encounter Description Last Updated Cardiac Arrest- sister age 50-09/2022 Last Documented On 3 2:44PM ; [facility] Maternal history of malignan t neoplasm of the ovary mom passed at 67 years old genetic testing negative 11/25/2015 Last Documented On 3 2:13PM ; [facility] Family history of heart disease mom and dads family 11/11/2014 Last Documented On 3 2:13PM ; [facility] Family history of hypertension dads fami ly 11/11/2014 Last Documented On 3 2:13PM ; [facility] Family history of malignant neoplasm of the ovary mom 11/11/2014 Last Documented On 3 2:13PM ; [facility] Family history unchanged 11/11/2014 Last Documented On 3 2:13PM ; [facility] Spouse name: Darrian 06/28/2012 Last Documented On 3 2:13PM ; [facility] Review of Systems Includes: Review of Systems from this encounter Systemic: Not tiring easily. No fever, no chills, no unusual bleeding, and no recent weight change. No pain. Head: No headache. Neck: No neck pain and no swollen glands in the neck. Eyes: No vision problems. Breasts: No breast symptoms, no breast lump, no pain in breast, and patient performs self breast exams. Cardiovascular: No chest pain or discomfort and no palpitations. Pulmonary: No pulmonary symptoms, no dyspnea, no cough, and no wheezing. Gastrointestinal: No heartburn. No nausea, no vomiting, no abdominal pain, no diarrhea, and no constipation. Genitourinary: No change in urinary frequency and no incomplete emptying of bladder. No urinary loss of control and no dysuria. No genital lesion, no pain during intercourse, no vaginal dryness, and normal menses. Nonmenstrual bleeding spotting today. No vaginal discharge. Endocrine: No polydipsia, no hot flashes, and libido has not changed. Musculoskeletal: No back pain, no muscle aches, and no localized joint pain. Neurological: No dizziness. Psychological: No anxiety, no depression, and a desire to continue living. Skin: No pruritus. No skin lesions and no rash. Mental Status Includes: Mental Status from this encounter Description Oriented to time, place, and person No anxiety A desire to continue living Functional Status Includes: Functional Status from this encounter No Functional Status Recorded Physical Exam Includes: Physical Exam from this encounter Allergies Includes: Active Allergies Substance Type Reaction Onset Date Resolved Date Statu s Trileptal Allergy 01/06/2022 Active Last Documented On 3 2:16PM ; [facility] TEGretol Allergy Skin Rashes / Er uption of skin, Hives / Urticaria 02/08/2011 Active Last Documented On 3 2:16PM ; [facility] Penicillin V Potassium Allergy 02/08/2011 Active Last Documented On 3 2:16PM ; [facility] Neurontin Allergy Skin Rashes / Er uption of skin, Hives / Urticaria 02/08/2011 Active Last Documented On 3 2:16PM ; [facility] Lyrica Allergy 02/08/2011 Active Last Documented On 3 2:16PM ; [facility] LaMICtal Allergy Skin Rashes / Er uption of skin, Hives / Urticaria 02/08/2011 Active Last Documented On 3 2:16PM ; [facility] Dilantin Allergy Skin Rashes / Er uption of skin, Hives / Urticaria 02/08/2011 Active Last Documented On 3 2:16PM ; [facility] Cipro Allergy 02/08/2011 Active Last Documented On 3 2:16PM ; [facility] Encounters Encounter Provider Location Date Check-In Time Check-Out Time Diagnosis [facility] PT KENYA DAUGHERTY RN [facility] 01/20/20 23 2:06PM 2:41PM Normal Female Exam,Screen Malignant Neoplasm Cervix Insurance Includes: Active Insurance Policies Plan Name Member ID Group # Subscriber Relationship Effect carly Dates 1 - UMR [id number] QUINTON WING Self 2 - [employer] [id number] QUINTON WING Self Clinical Notes Includes: Clinical Notes from this encounter * Progress note Date Encounter Last Documented by 01/19/2023 [facility] PT Last documented on 01/19/2023; 2:44 PM, KENYA DAUGHERTY RN [facility] ; [facility] Active Problems & Conditions - 610.1 - [...] - D25.9 - Uterine Neoplasm, Benign Leiomyoma Chief Complaint The Chief Complaint is: WWE. No problems. Well Woman visit Reason For Visit Gynecologic annual exam. History of Present Illness - Allergy list reviewed - Medication list reviewed Pt reports she began spotting today despite timely correct OCP use, admits she is under alot of stress with work and her sister, who is living at her house after [place]. Current Medication - Calcium 600+D 600-400 MG-UNIT [...] DAILY, 0 days, 0 refills - Necon 135 (28) 1-35 MG-MCG Oral Tablet One tablet daily, 84 days, 3 refills - Topiramate 100MG Oral Tablet 100 MG 0 days, 0 refills Past Medical/Surgical History Other: Primary Care Provider: PCP-Dr Choudhury neurologist Darcy Chavez Reported: No recent change in medical history PT. HAS EPILEPSY, LMP: 01/02/2023, Last pap smear date 12/2021 result: normal, Last mammogram date: 05/2022, and Contraception: NORTREL. Surgical / Procedural: Surgical / procedural history brain surgery . Surgical history unchanged. Tests: A mammogram was performed. : 0. Sexual: Sexually active. Other: Screening mammogram was performed 05/2022 Diagnoses: Ovarian cyst. Hypothyroidism Pt sees Dr. Valdo Garcia at [facility] Seizure disorder, last seizure in 2007. Procedural: - Pap smear done 12/2021 Social History Social history unchanged. Personal: Personal history. Current diet: Nutritious and satisfying diet. Tobacco use: Tobacco non-user. Not a smoker. Non-smoker. Smoking status: Never smoker. Alcohol: Not using alcohol. Alcohol use: 2 drinks or less per day none. Drug Use: Not using drugs. Habits: Amount of sleep. No recent change in sleep. Not exercising regularly. Education: Educational level. Activities: Activities. Marital: Marital history . Sexual: Sexually active with 1 partners in the last year and control is being practiced OCPs. 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 Allergies - Cipro - Dilantin Reaction: , [...] at 65 years old genetic testing negative Review Of Systems Systemic: Not tiring easily. No fever, no chills, no unusual bleeding, and no recent weight change. No pain. Head: No headache. Neck: No neck pain and no swollen glands in the neck. Eyes: No vision problems. Breasts: No breast symptoms, no breast lump, no pain in breast, and patient performs self breast exams. Cardiovascular: No chest pain or discomfort and no palpitations. Pulmonary: No pulmonary symptoms, no dyspnea, no cough, and no wheezing. Gastrointestinal: No heartburn. No nausea, no vomiting, no abdominal pain, no diarrhea, and no constipation. Genitourinary: No change in urinary frequency and no incomplete emptying of bladder. No urinary loss of control and no dysuria. No genital lesion, no pain during intercourse, no vaginal dryness, and normal menses. Nonmenstrual bleeding spotting today. No vaginal discharge. Endocrine: No polydipsia, no hot flashes, and libido has not changed. Musculoskeletal: No back pain, no muscle aches, and no localized joint pain. Neurological: No dizziness. Psychological: No anxiety, no depression, and a desire to continue living. Skin: No pruritus. No skin lesions and no rash. Physical Findings - Vitals taken 01/19/2023 02:14 pm BP-Sitting L 116/80 mmHg BP Cuff Size Regular Temp-Temporal 97.4 F Height 62 in Weight 109 lbs Body Mass Index 19.9 kg/m2 Body Surface Area 1.5 m2 Standard Measurements: - Weight. - Patient was not observed to be obese. General Appearance: - Normal. - Well developed. - Well nourished. - In no acute distress. Neck: - Normal. Appearance: - Neck was not swollen. - Neck was symmetrical. Palpation: - No tenderness of the neck. Thyroid: - Showed no abnormalities. - Did not have a nodule. - Not tender. Eyes: General/bilateral: Pupils: - PERRL. Nose: Right Side Of Nose: - Normal. Left Side Of Nose: - Normal. Oral Cavity: - General condition was good. Gums: - Examination showed no abnormalities. Teeth: - Dental no abnormalities. Lymph Nodes: - No adenopathy. - Cervical lymph nodes: normal. - Supraclavicular lymph Nodes: normal. Breasts: General/bilateral: - Palpation of the breast revealed dense, thickened tissue. - Nipples showed no abnormalities. - No abnormal breast secretion was observed. - No dimpling was seen in the breast. - No breast asymmetry was observed. - No breast mass was found. - No tenderness of breast. Right Breast: - Normal. - Was normal to palpation. Left Breast: - Normal. - Was normal to palpation. Lungs: - Respiration rhythm and depth was normal. - Clear to auscultation. - No wheezing was heard. - No rhonchi were heard. Cardiovascular: - System: normal. Heart Rate And Rhythm: - Normal. - Heart rhythm regular. Heart Sounds: - Normal. - S1 normal. - S2 normal. - No gallop was heard. Murmurs: - No murmurs were heard. Edema: - Not present. Abdomen: - No organomegaly. Visual Inspection: - Abdomen was normal on visual inspection. Palpation: - Abdominal non-tender. Liver: - Not enlarged. Spleen: - Not enlarged. Urinary System: Bladder: - Normal. - Not tender. Urethra: - Normal. - Meatus showed no abnormalities. - No mass on the urethra. Genitalia: External: - Genitalia showed no abnormalities. Pelvic: - No ovarian mass. Vagina: - Mucosa was normal. - No vaginal discharge was observed. - No cystocele was observed. - No rectocele was observed. Cervix: - Normal spotting noted after pap obtained, no fragility noted. - No cervical discharge. - Showed no lesion. - Did not demonstrate pain elicited by motion. - No inflammation. - No stenosis. Uterus: - Positioned midline. - Mobile. - Uterine size is normal. - Not tender. Uterine Adnexae: - Normal. - Uterine adnexa was not tender. - No tubal mass was noted. Rectovaginal: - Tissue was normal. Perineum: - No lesions. - No rashes. Rectal: Anus Examination: - External hemorrhoids were observed. Rectum: - A stool sample was taken for occult blood analysis. Musculoskeletal System: Fingers: General/bilateral: - No cyanosis of the fingers. - No acropachy of the fingers was observed. Neurological: - Oriented to time, place, and person. Psychiatric: - Mood was not anxious. Appearance: - Grooming was normal. Affect: - Not agitated. Skin: - General appearance was normal. - Texture was normal. - Turgor was normal. - No cyanosis. - Moisture was normal. - No skin lesions. - No perineal lesions. - No rash. Tests Laboratory-based Chemistry: Fecal Analysis: FIT Test-Fecal Occult negative. Pathology: Cytology: Cervical Pap smear. Assessment - [Z01.419 - Encounter for gynecological examination (general) (routine) without abnormal findings] NORMAL FEMALE EXAM - [Z12.4 - Encounter for screening for malignant neoplasm of cervix] Screen malignant neoplasm cervix Previous Tests Past Medical: Tests: A mammogram was performed 05/2022. Pathology: Cytology: Cervical Pap smear 12/2021. Therapy - Urged Exercise and Diet, exercise at least 30 min three times per week. - Education and instructions Pt due for lipid serology prior to her annual PCP appt. and will have a copy of her results forwarded to us. - Discussed Contraception. - Medical regimen review. - Explanation of plan Pt. to be contacted with all results for plan of care and questions answered. 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) (routine) w/o abn findings Lab: PAP SMEAR & HPV (QUEST # [id number]) EndCited StartCited - Encntr screen mammogram for malignant neoplasm of breast Radiology @ other/*MAMMOGRAPHY: SCREENING MAMMOGRAM Instructions: Additional images/ultrasounds if indicated Please send to PCP EndCited StartCited - Encounter for screening for malignant neoplasm of colon In office procedures/*Clia Waived Labs: *FOBT* Fecal Occult Blood Test EndCited StartCited - Encounter for surveillance of contraceptive pills Nortrel (28) 1-35 MG-MCG tablet One tablet daily, 28 days, 12 refills EndCited StartCited - Other PHY ORDER/COMMENT 1 yr and release for records Dr. Laura Kaminski [place] Rahul thanks EndCited - Clinical summary provided to patient PT TO CALL WITH ANY CHANGE IN STATUS ALL QUESTIONS ANSWERED WITH UNDERSTANDING VERBALIZED BY PT. Health Reminders - Assess BMI satisfied 01/19/2023. - Assess Tobacco Use satisfied 01/19/2023. - Mammogram satisfied 05/11/2022.
--- OUTSIDE RECORDS SUMMARY | 2024-07-13 14:49 | XMS_ITS | Clinical Summary ---
Author Organization [facility] Address [address] [place] [address] Phone Care Team Providers Care Mirror Finishing Machine Operator Name Role Phone Macey, Rodo Thompson SEGOVIA Primary Care Provider [phone]- [phone] Allergies Active Allergy Reactions Criticality Noted Date Comments Phenytoin Sodium Extended Rash 11/03/2016 Pregabalin Rash 11/03/2016 Gabapentin Rash 11/03/2016 Penicillins Rash 11/03/2016 Carbamazepine Rash 11/03/2016 Oxcarbazepine Rash 11/03/2016 Medications norethindrone-et hinyl estradiol (NORTREL 1/35, 28,) 1-35 MG-MCG Tablet Take 1 Tab by mouth daily. Active Lacosamide (VIMPAT) 200 MG TabletIndication s:0600 Take 200 mg by mouth once. Active Lacosamide (VIMPAT) 200 MG TabletIndication s:1300 Take 200 mg by mouth. Active Lacosamide (VIMPAT) 200 MG TabletIndication s:2000 Take 300 mg by mouth. Active levothyroxine (SYNTHROID) 150 MCG Tablet Take 150 mcg by mouth daily. Active levETIRAcetam (KEPPRA) 750 MG Tablet Take 750 mg by mouth 2 times daily. Active folic acid (FOLVITE) 1 MG Tablet Take 2 mg by mouth 2 times daily. Active topiramate (TOPAMAX) 100 MG TabletIndication s:0800 Take 300 mg by mouth once. Active topiramate (TOPAMAX) 100 MG TabletIndication s:2000 Take 200 mg by mouth once. Active Immunizations Immunization Administration Dates Next Due Covid-19, Mrna, Lnp-s, Pf, 1 00 Mcg Or 50 Mcg Dose (MODERNA) 05/29/2020,05/01/2020 TDAP Vaccine 02/12/2009 Social History Tobacco Use Types Packs/Day Years Used Date Smoking Tobacco: Never Assessed Comments No Sex and Gender Information Value Date Recorded Sex Assigned at Not on file Legal Sex Female 10:40 PM CDT Gender Identity Not on file Sexual Orientation Not on file Last Filed Vital Signs Vital Sign Reading Time Taken Comments Blood Pressure 110/75 11/03/2016 11:30 PM CDT Pulse 70 11/03/2016 11:30 PM CDT Temperature 35.6 C (96 F) 11/03/2016 10:17 PM CDT Respiratory Rate 16 11/03/2016 11:30 PM CDT Oxygen Saturation 99% 11/03/2016 11:30 PM CDT Inhaled Oxygen Concentration - - Weight 61.2 kg (135 lb) 11/03/2016 10:17 PM CDT Height 157.5 cm (5' 2 ) 11/03/2016 10:17 PM CDT Body Mass Index 24.69 11/03/2016 10:17 PM CDT Plan of Treatment Health Maintenance Due Date Last Done Comments Hepatitis C Virus (HCV) Screening 1978 Hepatitis B Immunization (1 of 3 - 19+ 3-dose series) 1997 Colonoscopy 2023 Colorectal Cancer Screening 2023 Influenza Immunization (#1) 2023 SARS-COV-2 Immunization ( season) 2023 05/29/2020, 05/01/2020 Immunochemical Fecal Occult Blood 01/17/2028 01/12/2021 Respiratory Syncytial Virus (RSV) Immunization (Adult) (1 - 1-dose 75+ series) 2053 DTaP/Tdap/Td Immunization Discontinued 02/12/2009 Meningococcal Immunization (ACWY) Aged Out No longer eligible based on patient's age to complete this topic Pneumococcal Immunization Combined Aged Out No longer eligible based on patient's age to complete this topic Rotavirus Immunization Aged Out No lo nger eligible based on patient's age to complete this topic Insurance [facility] Care Teams Mirror Finishing Machine Operator Relationship Specialty Start Date End Date Rodo Choudhury [place] [address] [place] [place] [address] PCP - General Internal Medicine 11/03/16
== END 2024-07-12 15:07 | disposition home or self-care (01) ==
LOC: ANHIMG 15:08
PROVIDERS: PCP Internal Medicine Infectious Disease; Visit Provider Nurse Practitioner Women's Health
DX: Z12.31 Encounter for screening mammogram for malignant neoplasm of breast (principal)
CPT/HCPCS: 77063; 77067

== ENCOUNTER 2024-09-17 17:03 | Outpatient (CLI) | payer OTHER, SELFPAY ==
--- OUTSIDE RECORDS SUMMARY | 2024-09-17 17:10 | XMS_ITS | Clinical Summary ---
Author Organization [facility] Address [address] [place] [address] Care Team Providers Care Flight Attendant Name Role Phone Rodo Choudhury MD Primary Care Provider [phone]- [phone] Source Comments [facility] hospital Affiliates and Associated Physician Practices is amultiple site organization consisting of ambulatory clinics and hospital sitesin [place], [place], [place] and [place]. This disclosure is being madepursuant to the Care Everywhere program and may not contain all information available regarding this patient. Last updated 17.[facility] Allergies Active Allergy Reactions Criticality Noted Date [...] 10:48 AM CDT Height 157.5 cm (5' 2) 08/02/2022 10:48 AM CDT Body Mass Index [...] patient's age to complete this topic Insurance [facility] Care Teams Flight Attendant Relationship Specialty Start Date End Date Rodo Choudhury MD [address] [place] [address] PCP - General Internal Medicine 08/02/22
--- OUTSIDE RECORDS SUMMARY | 2024-09-17 17:10 | XMS_ITS | Encounter Summary ---
Author Organization [facility] Address [address] [place] [address] Phone Care Team Providers Care Wire Worker Name Role Phone Rodo Choudhury MD Primary Care Provider [phone]- [phone] Valdo Mcneal MD Unavailable [phone] Kyree Artis MD Unavailable [phone] Alexandra Olivo MD PhD Unavaila ble Lorenzo Gamino MD PhD Unavailable [phone] Encounter Details Date Type Department Care Team (Late st Contact Info) Description 02/13/2020 Orders Only [facility] [address] [place] [address] Scanning, Provider Social History Tobacco Use Types Packs/Day Years Used Date Smoking Tobacco: Never Smokeless Tobacco: Never Alcohol Use Standard Drinks/Week Comments No 0 (1 standard drink = 0.6 oz pur e alcohol) Comments Yes Sex and Gender Information Value Date Recorded Sex Assigned at Not on file Legal Sex Female 12:19 AM RECOATING MACHINE OPERATOR Gender Identity Female 10/22/2019 9:31 AM CDT Sexual Orientation Not on file 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 Not on file Not [...] documented as of this encounter Care Teams Wire Worker Relationship Specialty Start Date End Date Rodo Choudhury MD [address] [place] [address] PCP - General 06/10/16 [place] [address] [address] Consulting Physician Endocrinology Diabetes & Metabolism 07/24/17 [place] [address] [address] Surveillance Agent Obstetrics and Gynecology 07/24/17 Alexandra Olivo [place] PhD [address] [address] Surgeon Surgical Oncology 08/02/18 Lorenzo Gamino MD PhD [address] [place] [address] Referring Physician Neurology 09/03/19 documented as of this encounter
--- OUTSIDE RECORDS SUMMARY | 2024-09-17 17:10 | XMS_ITS | Encounter Summary ---
Author Organization [facility] Address [address] [place] [address] Phone Care Team Providers Care Dog Obedience Instructor Name Role Phone Rodo Choudhury MD Primary Care Provider [phone] Valdo Mcneal MD Unavailable [phone] Kyree Artis MD Unavailable [phone] Alexandra Olivo MD PhD Unavaila ble Lorenzo Gamino MD PhD Unavailable [phone] Encounter Details Date Type Department Care Team (Late st Contact Info) Description 08/19/2021 Orders Only [facility] [address] [place] [address] Scanning, Provider Social History Tobacco Use Types Packs/Day Years Used Date Smoking Tobacco: Never Smokeless Tobacco: Never Alcohol Use Standard Drinks/Week Comments No 0 (1 standard drink = 0.6 oz pur e alcohol) Comments Unknown Sex and Gender Information Value Date Recorded Sex Assigned at Not on file Legal Sex Female 12:19 AM EDUCATIONAL PROGRAM ASSISTANT Gender Identity Female 10/22/2019 9:31 AM CDT Sexual Orientation Not on file 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 Not on file [...] documented as of this encounter Care Teams Dog Obedience Instructor Relationship Specialty Start Date End Date Rodo Chouduhry MD [address] [place] [address] PCP - General 06/10/16 [place] [address] [address] Consulting Physician Endocrinology Diabetes & Metabolism 07/24/17 [place] [address] [address] Shipping Room Helper Obstetrics and Gynecology 07/24/17 Alexandra Olivo [place] PhD [address] [address] Surgeon Surgical Oncology 08/02/18 Lorenzo Gamino MD PhD [address] [place] [address] Referring Physician Neurology 09/03/19 documented as of this encounter
--- OUTSIDE RECORDS SUMMARY | 2024-09-17 17:10 | XMS_ITS | Encounter Summary ---
Author Organization [facility] Address [address] [place] [address] Phone Care Team Providers Care 1St Pressman Name Role Phone Rodo Choudhury MD Primary Care Provider [phone] Valdo Mcneal MD Unavailable [phone] Kyree Artis MD Unavailable [phone] Alexandra Olivo MD PhD Unavaila ble Lorenzo Gamino MD PhD Unavailable [phone] Encounter Details Date Type Department Care Team (Late st Contact Info) Description 01/06/2021 Orders Only [facility] [address] [place] [address] Scanning, Provider Social History Tobacco Use Types Packs/Day Years Used Date Smoking Tobacco: Never Smokeless Tobacco: Never Alcohol Use Standard Drinks/Week Comments No 0 (1 standard drink = 0.6 oz pur e alcohol) Comments Yes Sex and Gender Information Value Date Recorded Sex Assigned at Not on file Legal Sex Female 12:19 AM BOUNTY TRAPPER Gender Identity Female 10/22/2019 9:31 AM CDT Sexual Orientation Not on file 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 on file Not [...] documented as of this encounter Care Teams 1St Pressman Relationship Specialty Start Date End Date Rodo Choudhury MD [address] [place] [address] PCP - General 06/10/16 [place] [address] [facility] [address] [place] [address] Consulting Physician Endocrinology Diabetes & Metabolism 07/24/17 [place] [address] [facility] [address] [place] [address] Parking Enforcer Obstetrics and Gynecology 07/24/17 Alexandra Olivo [place] PhD [address] [facility] [address] [place] [address] Surgeon Surgical Oncology 08/02/18 Lorenzo Gamino MD PhD [address] [place] [address] Referring Physician Neurology 09/03/19 documented as of this encounter
--- OUTSIDE RECORDS SUMMARY | 2024-09-17 17:10 | XMS_ITS | Encounter Summary ---
Author Organization [facility] Address [address] [place] [address] Phone Care Team Providers Care Complaint Investigator Name Role Phone Rodo Choudhury MD Primary Care Provider [phone] Valdo Mcneal MD Unavailable Kyree Artis MD Unavailable [phone] Alexandra Olivo MD PhD Unavaila ble Lorenzo Gamino MD PhD Unavailable [phone] Encounter Details Date Type Department Care Team (Late st Contact Info) Description 04/26/2021 Orders Only [facility] [address] [place] [address] Scanning, Provider Social History Tobacco Use Types Packs/Day Years Used Date Smoking Tobacco: Never Smokeless Tobacco: Never Alcohol Use Standard Drinks/Week Comments No 0 (1 standard drink = 0.6 oz pur e alcohol) Comments Yes Sex and Gender Information Value Date Recorded Sex Assigned at Not on file Legal Sex Female 12:19 AM 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 ADDING MACHINES Gender Identity Female 10/22/2019 9:31 AM CDT Sexual Orientation Not on file 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 [...] documented as of this encounter Care Teams Complaint Investigator Relationship Specialty Start Date End Date Rodo Choudhury MD [address] [place] [address] PCP - General 06/10/16 [place] [address] [facility] [address] [place] [address] Consulting Physician Endocrinology Diabetes & Metabolism 07/24/17 [place] [address] [address] [facility] [address] [place] [address] Pattern Hand Obstetrics and Gynecology 07/24/17 Alexandra Olivo [place] PhD [address] [facility] [address] [place] [address] Surgeon Surgical Oncology 08/02/18 Lorenzo Gamino MD PhD [address] [place] [address] Referring Physician Neurology 09/03/19 documented as of this encounter
--- OUTSIDE RECORDS SUMMARY | 2024-09-17 17:10 | XMS_ITS | Encounter Summary ---
Author Organization [facility] Address [address] [employer] [employer] [place] [address] Phone Care Team Providers Care Environmental Health Safety Engineer Name Role Phone Rodo Choudhury MD Primary Care Provider [phone] Celso Ortiz MD Unavailable [phone] Valdo Mcneal MD Unavailable [phone] Kyree Artis MD Unavailable [phone] Alexandra Olivo MD PhD Unavaila ble Lorenzo Gamino MD PhD Unavailable [phone] Encounter Details Date Type Department Care Team (Late st Contact Info) Description 01/17/2017 Orders Only [facility] [address] [place] [address] Rodo Choudhury MD [address] [place] [address] Social History Tobacco Use Types Packs/Day Years Used Date Smoking Tobacco: Never Alcohol Use Standard Drinks/Week Comments No 0 (1 standard drink = 0.6 oz pur e alcohol) Comments Unknown Sex and Gender Information Value Date Recorded Sex Assigned at Not on file Legal Sex Female 12:19 AM CARD CUTTER Gender Identity Female 10/22/2019 9:31 AM CDT Sexual Orientation Not on file documented as of this encounter Plan of Treatment Not on file documented as of this encounter Procedures Procedure Name Priority Date/Time Associated Diagnosis Comments SCAN - LABS 01/17/2017 2:24 PM CARD CUTTER documented in this encounter Results * SCAN - LABS (01/17/2017 2:24 PM CARD CUTTER) Rodo Choudhury MD Final Resu lt documented in this encounter Visit Diagnoses Not on filedocumented in this encounter Additional Health Concerns Infection Onset Date Last Indicated Resolved Time COVID: Suspected 10/06/2022 10/06/2022 10/06/2022 11:26 AM CDT documented as of this encounter Care Teams Environmental Health Safety Engineer Relationship Specialty Start Date End Date Rodo Choudhury MD [address] [place] [address] PCP - General 06/10/16 [place] [address] [address] Referring Physician Neurology 07/24/17 09/02/19 [place] [address] [address] Consulting Physician Endocrinology Diabetes & Metabolism 07/24/17 [place] [address] [address] Manager Servicing Obstetrics and Gynecology 07/24/17 Alexandra Olivo [place] PhD [address] [address] Surgeon Surgical Oncology 08/02/18 Lorenzo Gamino MD PhD [address] [place] [address] Referring Physician Neurology 09/03/19 documented as of this encounter
--- OUTSIDE RECORDS SUMMARY | 2024-09-17 17:10 | XMS_ITS | Encounter Summary ---
Author Organization [facility] Address [address] [place] [address] Phone Care Team Providers Care Manager Of Application Development Name Role Phone Rodo Choudhury MD Primary Care Provider [phone] Valdo Mcneal MD Unavailable [phone] Kyree Artis MD Unavailable [phone] Alexandra Olivo MD PhD Unavaila ble Lorenzo Gamino MD PhD Unavailable Encounter Details Date Type Department Care Team (Late st Contact Info) Description 05/13/2021 Orders Only [facility] [address] [place] [address] Scanning, Provider Social History Tobacco Use Types Packs/Day Years Used Date Smoking Tobacco: Never Smokeless Tobacco: Never Alcohol Use Standard Drinks/Week Comments No 0 (1 standard drink = 0.6 oz pur e alcohol) Comments Yes Sex and Gender Information Value Date Recorded Sex Assigned at Not on file Legal Sex Female 12:19 AM CANDLE POURER Gender Identity Female 10/22/2019 9:31 AM CDT [...] documented as of this encounter Care Teams Manager Of Application Development Relationship Specialty Start Date End Date Rodo Choudhury MD [address] [place] [address] PCP - General 06/10/16 [place] [address] [facility] [address] [place] [address] Consulting Physician Endocrinology Diabetes & Metabolism 07/24/17 [place] [address] [address] [facility] [address] [place] [address] Turf Manager Obstetrics and Gynecology 07/24/17 Alexandra Olivo [place] PhD [address] [facility] [address] [place] [address] Surgeon Surgical Oncology 08/02/18 Lorenzo Gamino MD PhD [address] [place] [address] Referring Physician Neurology 09/03/19 documented as of this encounter
--- OUTSIDE RECORDS SUMMARY | 2024-09-17 17:10 | XMS_ITS | Encounter Summary ---
Author Organization [facility] Address [address] [place] [address] Phone Care Team Providers Care Commissary Officer Name Role Phone Rodo Choudhury MD Primary Care Provider [phone] Valdo Mcneal MD Unavailable [phone] Kyree Artis MD Unavailable [phone] Alexandra Olivo MD PhD Unavaila ble Lorenzo Gamino MD PhD Unavailable [phone] Encounter Details Date Type Department Care Team (Late st Contact Info) Description 02/12/2021 Orders Only [facility] [address] [place] [address] Scanning, Provider Social History Tobacco Use Types Packs/Day Years Used Date Smoking Tobacco: Never Smokeless Tobacco: Never Alcohol Use Standard Drinks/Week Comments No 0 (1 standard drink = 0.6 oz pur e alcohol) Comments Yes Sex and Gender Information Value Date Recorded Sex Assigned at Not on file Legal Sex Female 12:19 AM BRIQUETTE MOLDER Gender Identity Female 10/22/2019 9:31 AM CDT [...] documented as of this encounter Care Teams Commissary Officer Relationship Specialty Start Date End Date Rodo Choudhury MD [address] [place] [address] PCP - General 06/10/16 [place] [address] [address] [facility] [address] [place] [address] Consulting Physician Endocrinology Diabetes & Metabolism 07/24/17 [place] [address] [address] [facility] [address] [place] [address] Coffee Attendant Obstetrics and Gynecology 07/24/17 Alexandra Olivo [place] PhD [address] [facility] [address] [place] [address] Surgeon Surgical Oncology 08/02/18 Lorenzo Gamino MD PhD [address] [place] [address] Referring Physician Neurology 09/03/19 documented as of this encounter
--- OUTSIDE RECORDS SUMMARY | 2024-09-17 17:10 | XMS_ITS | Encounter Summary ---
Author Organization [facility] Address [address] [place] [address] Phone Care Team Providers Care Senior Trainer Name Role Phone Rodo Choudhury MD Primary Care Provider [phone] Valdo Mcneal MD Unavailable [phone] Kyree Artis MD Unavailable [phone] Alexandra Olivo MD PhD Unavaila ble Lorenzo Gamino MD PhD Unavailable [phone] Encounter Details Date Type Department Care Team (Late st Contact Info) Description 02/08/2021 Orders Only [facility] [address] [place] [address] Scanning, Provider Social History Tobacco Use Types Packs/Day Years Used Date Smoking Tobacco: Never Smokeless Tobacco: Never Alcohol Use Standard Drinks/Week Comments No 0 (1 standard drink = 0.6 oz pur e alcohol) Comments Yes Sex and Gender Information Value Date Recorded Sex Assigned at Not on file Legal Sex Female 12:19 AM ELECTRICAL MAINTENANCE MECHANIC Gender Identity Female 10/22/2019 9:31 AM CDT Sexual Orientation Not on file 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 [...] documented as of this encounter Care Teams Senior Trainer Relationship Specialty Start Date End Date Rodo Choudhury MD [address] [place] [address] PCP - General 06/10/16 [place] [address] [address] Consulting Physician Endocrinology Diabetes & Metabolism 07/24/17 [place] [address] [address] School Bus Attendant Obstetrics and Gynecology 07/24/17 [place] PhD [address] [address] Surgeon Surgical Oncology 08/02/18 Lorenzo Gamino MD PhD [address] [place] [address] Referring Physician Neurology 09/03/19 documented as of this encounter
--- OUTSIDE RECORDS SUMMARY | 2024-09-17 17:10 | XMS_ITS | Encounter Summary ---
Author Organization [facility] Address [address] [place] [address] Phone Care Team Providers Care Dictating Machine Typist Name Role Phone Rodo Choudhury MD Primary Care Provider [phone] Valdo Mcneal MD Unavailable [phone] Kyree Artis MD Unavailable [phone] Alexandra Olivo MD PhD Unavaila ble Lorenzo Gamino MD PhD Unavailable Encounter Details Date Type Department Care Team (Late st Contact Info) Description 12/16/2020 Orders Only [facility] [address] [place] [address] Scanning, Provider Social History Tobacco Use Types Packs/Day Years Used Date Smoking Tobacco: Never Smokeless Tobacco: Never Alcohol Use Standard Drinks/Week Comments No 0 (1 standard drink = 0.6 oz pur e alcohol) Comments Yes Sex and Gender Information Value Date Recorded Sex Assigned at Not on file Legal Sex Female 12:19 AM MAIL SUPERINTENDENT Gender Identity Female 10/22/2019 9:31 AM CDT Sexual Orientation Not on file 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 on file [...] documented as of this encounter Care Teams Dictating Machine Typist Relationship Specialty Start Date End Date Rodo Choudhury MD [address] [place] [address] PCP - General 06/10/16 [place] [address] [facility] [address] [place] [address] Consulting Physician Endocrinology Diabetes & Metabolism 07/24/17 [place] [address] [address] [facility] [address] [place] [address] Ediphone Operator Obstetrics and Gynecology 07/24/17 Alexandra Olivo [place] PhD [address] [address] [facility] [address] [place] [address] Surgeon Surgical Oncology 08/02/18 Lorenzo Gamino MD PhD [address] [place] [address] Referring Physician Neurology 09/03/19 documented as of this encounter
--- OUTSIDE RECORDS SUMMARY | 2024-09-17 17:10 | XMS_ITS | Encounter Summary ---
Author Organization [facility] Address [address] [place] [address] Phone Care Team Providers Care Rooming House Inspector Name Role Phone Rodo Choudhury MD Primary Care Provider [phone] Valdo Mcneal MD Unavailable [phone] Kyree Artis MD Unavailable [phone] Alexandra Olivo MD PhD Unavaila ble Lorenzo Gamino MD PhD Unavailable [phone] Encounter Details Date Type Department Care Team (Late st Contact Info) Description 03/04/2022 Orders Only [facility] [address] [place] [address] Scanning, Provider Social History Tobacco Use Types Packs/Day Years Used Date Smoking Tobacco: Never Smokeless Tobacco: Never Alcohol Use Standard Drinks/Week Comments No 0 (1 standard drink = 0.6 oz pur e alcohol) Comments Unknown Sex and Gender Information Value Date Recorded Sex Assigned at Not on file Legal Sex Female 12:19 AM A/C TECHNICIAN Gender Identity Female 10/22/2019 9:31 AM CDT Sexual Orientation Not on file 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 Not on file Not [...] documented as of this encounter Care Teams Rooming House Inspector Relationship Specialty Start Date End Date Rodo Choudhury MD [address] [place] [address] PCP - General 06/10/16 [place] [address] [address] Consulting Physician Endocrinology Diabetes & Metabolism 07/24/17 [place] [address] [address] Milling Machine Set Up Operator Obstetrics and Gynecology 07/24/17 Alexandra Olivo [place] PhD [address] [address] Surgeon Surgical Oncology 08/02/18 Lorenzo Gamino MD PhD [address] [place] [address] Referring Physician Neurology 09/03/19 documented as of this encounter
--- OUTSIDE RECORDS SUMMARY | 2024-09-17 17:10 | XMS_ITS | Encounter Summary ---
Author Organization [facility] Address [address] [place] [address] Phone Care Team Providers Care Family Program Specialist Name Role Phone Rodo Choudhury MD Primary Care Provider [phone] Valdo Mcneal MD Unavailable [phone] Kyree Artis MD Unavailable [phone] Alexandra Olivo MD PhD Unavaila ble Lorenzo Gamino MD PhD Unavailable [phone] Encounter Details Date Type Department Care Team [...] on file Legal Sex Female 12:19 AM BASEBALL PLAYER Gender Identity Female 10/22/2019 9:31 AM CDT Sexual Orientation Not on file 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 Not [...] documented as of this encounter Care Teams Family Program Specialist Relationship Specialty Start Date End Date Rodo Choudhury MD [address] [place] [address] PCP - General 06/10/16 [place] [address] [address] [address] Consulting Physician Endocrinology Diabetes & Metabolism 07/24/17 [place] [address] [address] [address] Reinforcing Rod Layer Obstetrics and Gynecology 07/24/17 [place] PhD [address] [address] Surgeon Surgical Oncology 08/02/18 Lorenzo Gamino MD PhD [address] [place] [address] Referring Physician Neurology 09/03/19 documented as of this encounter
--- OUTSIDE RECORDS SUMMARY | 2024-09-17 17:10 | XMS_ITS | Encounter Summary ---
Author Organization [facility] Address [address] [place] [address] Phone Care Team Providers Care Front End Developer Javascript Html Css Name Role Phone Rodo Choudhury MD Primary Care Provider [phone] Valdo Mcneal MD Unavailable [phone] Kyree Artis MD Unavailable [phone] Alexandra Olivo MD PhD Unavaila ble Lorenzo Gamino MD PhD Unavailable [phone] Encounter Details Date Type Department Care Team (Late st Contact Info) Description 05/10/2022 Orders Only [facility] [address] [place] [address] Scanning, Provider Social History Tobacco Use Types Packs/Day Years Used Date Smoking Tobacco: Never Smokeless Tobacco: Never Alcohol Use Standard Drinks/Week Comments No 0 (1 standard drink = 0.6 oz pur e alcohol) Comments Unknown Sex and Gender Information Value Date Recorded Sex Assigned at Not on file Legal Sex Female 12:19 AM OBIEE CONSULTANT Gender Identity Female 10/22/2019 9:31 AM CDT Sexual Orientation Not on file 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 Not on [...] documented as of this encounter Care Teams Front End Developer Javascript Html Css Relationship Specialty Start Date End Date Rodo Choudhury MD [address] [place] [address] PCP - General 06/10/16 [place] [address] [address] [address] Consulting Physician Endocrinology Diabetes & Metabolism 07/24/17 [place] [address] [address] Oil Burner Technician Obstetrics and Gynecology 07/24/17 Alexandra Olivo MD PhD [address] [address] Surgeon Surgical Oncology 08/02/18 Lorenzo Gamino MD PhD [address] [place] [address] Referring Physician Neurology 09/03/19 documented as of this encounter
--- OUTSIDE RECORDS SUMMARY | 2024-09-17 17:10 | XMS_ITS | Encounter Summary ---
Author Organization [facility] Address [address] [place] [address] Phone Care Team Providers Care Instrument Lens Grinder Name Role Phone Rodo Choudhury MD Primary Care Provider [phone] Valdo Mcneal MD Unavailable [phone] Kyree Artis MD Unavailable [phone] Alexandra Olivo MD PhD Unavaila ble Lorenzo Gamino MD PhD Unavailable [phone] Encounter Details Date Type Department Care Team (Late st Contact Info) Description 05/19/2022 Orders Only [facility] [address] [place] [address] Scanning, Provider Social History Tobacco Use Types Packs/Day Years Used Date Smoking Tobacco: Never Smokeless Tobacco: Never Alcohol Use Standard Drinks/Week Comments No 0 (1 standard drink = 0.6 oz pur e alcohol) Comments Unknown Sex and Gender Information Value Date Recorded Sex Assigned at Not on file Legal Sex Female 12:19 AM SPRINKLER REPAIR TECHNICIAN Gender Identity Female 10/22/2019 9:31 AM CDT Sexual Orientation Not on file 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 Not on file [...] documented as of this encounter Care Teams Instrument Lens Grinder Relationship Specialty Start Date End Date Rodo Choudhury MD [address] [place] [address] PCP - General 06/10/16 [place] [address] [address] [address] Consulting Physician Endocrinology Diabetes & Metabolism 07/24/17 [place] [address] [address] [address] Burr Picker Obstetrics and Gynecology 07/24/17 Alexandra Olivo [place] PhD [address] [address] Surgeon Surgical Oncology 08/02/18 Lorenzo Gamino MD PhD [address] [place] [address] Referring Physician Neurology 09/03/19 documented as of this encounter
--- OUTSIDE RECORDS SUMMARY | 2024-09-17 17:10 | XMS_ITS | Referral Summary ---
Author Organization [facility] Address [address] [place] [address] Care Team Providers Care Manager Utilization Review Name Role Phone Macey, Rodo Mackay MD Primary Care Provider [phone] Valdo Mcneal MD Unavailable [phone] Kyree Artis MD Unavailable [phone] Alexandra Olivo MD PhD Unavaila ble Lorenzo Curz MD PhD Unavailable [phone] Allergies Active Allergy Reactions Criticality Noted Date Comments Carbamazepine Ciprofloxacin Unknown 07/14/2016 Gabapentin Lamotrigine Oxcarbazepine Penicillins Phenytoin Phenytoin Sodium Extended Rash Medium 11/03/2016 Pregabalin Medications artificial tears,hypromellos e, (GENTEAL) 0.2 % ophthalmic solution Administer 2 drops into both eyes as needed Active norethindrone-eth in estradiol (ORTHO-NOVUM 1-35 TAB,NORTREL 1-35 TAB) 1-35 mg-mcg per tablet Take 1 tablet by mouth daily Active multivitamin capsule Take 1 capsule by mouth daily Active ketoconazole (NIZORAL) 2 % shampoo Use shampoo weekly, leave on for 5-10 minutes, then rinse. 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) TAKE 1 TABLET TWICE A DAY (COMBINE DOSE 250MG TWO TIMES A DAY) 180 tablet 1 025 Active lacosamide (VIMPAT) 200 mg tabletIndications :Seizure disorder (HCC) Take 1 tablet (200 mg total) by mouth 2 (two) times a day Combined dose: 250 mg twice a day 180 tablet 1 025 2025 Active levothyroxine (SYNTHROID) 150 mcg tabletIndications :Acquired hypothyroidism Take 1 tablet (150 mcg total) by mouth database administrator before breakfast 90 tablet 1 025 2024 Discontinued lacosamide (VIMPAT) 50 mg tabletIndications :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) Take 1 tablet (50 mg total) by mouth 2 (two) times a day Combined dose: 250 mg twice a day 180 tablet 1 025 2024 Discontinued lacosamide (VIMPAT) 200 mg tabletIndications :Seizure disorder (HCC) Take 1 tablet (200 mg total) by mouth 2 (two) times a day Combined dose: 250 mg twice a day 180 tablet 1 025 2024 Discontinued Active Problems Problem Noted Date Diagnosed Date [...] reconciled Assessment & Plan (03/29/2024 9:35 AM SENIOR ACCOUNT MANAGER): IMMUNIZATIONS WERE REVIEWED EYE EXAM AND DENTAL [...] on file Legal Sex Female 12:19 AM SENIOR ACCOUNT MANAGER Gender Identity Female 10/22/2019 9:31 AM CDT Sexual Orientation Not on file 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 Not on file Not on file Last Filed Vital Signs Vital Sign Reading Time Taken Comments Blood Pressure 120/80 03/29/2024 7:58 AM SENIOR ACCOUNT MANAGER Pulse 74 03/29/2024 7:58 AM SENIOR ACCOUNT MANAGER Temperature 36.3 C (97.3 F) 03/29/2024 7:58 AM SENIOR ACCOUNT MANAGER Respiratory Rate 16 03/29/2024 7:58 AM SENIOR ACCOUNT MANAGER Oxygen Saturation 99% 03/29/2024 7:58 AM SENIOR ACCOUNT MANAGER Inhaled Oxygen Concentration - - Weight 51.1 kg (112 lb 9.6 oz) 03/29/2024 7:58 A M SENIOR ACCOUNT MANAGER Height 157.5 cm (5' 2) 03/29/2024 7:58 AM SENIOR ACCOUNT MANAGER Body Mass Index 20.59 03/29/2024 7:58 AM SENIOR ACCOUNT MANAGER Plan of Treatment Not on file Insurance [facility] Sub[facility] Plan / Payer (Ef fective 2012-Present) Name:Kathie Wing Relation to Subscriber:Self Name:Kathie Wing Payer ID:[id number] ([facility]) Type:[facility] HMO/PPO Address: [address] [facility] Member Subscriber Plan / Payer (Ef fective 2012-Present) Name:KATHIE GALLEGOS Relation to Subscriber:Self Name:Kathie Wing Payer ID:[id number] ([facility]) Type:[facility] HMO/PPO Address: [address] [facility] Care Teams Manager Utilization Review Relationship Specialty Start Date End Date Rodo Choudhury MD [address] [place] [address] PCP - General 06/10/16 [place] [address] [address] [address] Consulting Physician Endocrinology Diabetes & Metabolism 07/24/17 [place] [address] [address] Bi Manager Obstetrics and Gynecology 07/24/17 Alexandra Olivo [place] PhD [address] [address] Surgeon Surgical Oncology 08/02/18 Lorenzo Cruz MD PhD [address] [place] [address] Referring Physician Neurology 09/03/19
--- OUTSIDE RECORDS SUMMARY | 2024-09-17 17:10 | XMS_ITS | Encounter Summary ---
Author Organization [facility] Address [address] [place] [address] Phone Care Team Providers Care Cottage Attendant Name Role Phone Rodo Choudhury MD Primary Care Provider [phone] Celso Ortiz MD Unavailable [phone] Valdo Mcneal MD Unavailable [phone] Kyree Artis MD Unavailable [phone] Alexandra Olivo MD PhD Unavaila ble Lorenzo Gamino MD PhD Unavailable [phone] Encounter Details Date Type Department Care Team (Late st Contact Info) Description 04/20/2017 Orders Only [facility] [address] [place] [address] Rodo Choudhury MD [address] [place] [address] Social History Tobacco Use Types Packs/Day Years Used Date Smoking Tobacco: Never Smokeless Tobacco: Never Alcohol Use Standard Drinks/Week Comments No 0 (1 standard drink = 0.6 oz pur e alcohol) Comments Unknown Sex and Gender Information Value Date Recorded Sex Assigned at Not on file Legal Sex Female 12:19 AM PERINATAL SPECIALIST Gender Identity Female 10/22/2019 9:31 AM CDT Sexual Orientation Not on file documented as of this encounter Plan of Treatment Not on file documented as of this encounter Procedures Procedure Name Priority Date/Time Associated Diagnosis Comments SCAN - RADIOLOGY/IMAGING 04/20/2017 10:01 AM PERINATAL SPECIALIST documented in this encounter Results * SCAN - RADIOLOGY/IMAGING (04/20/2017 10:01 AM PERINATAL SPECIALIST) Anatomical Region Laterality Modality Other Rodo Choudhury MD Final Resu lt documented in this encounter Visit Diagnoses Not on filedocumented in this encounter Additional Health Concerns Infection Onset Date Last Indicated Resolved Time COVID: Suspected 10/06/2022 10/06/2022 10/06/2022 11:26 AM CDT documented as of this encounter Care Teams Cottage Attendant Relationship Specialty Start Date End Date Rodo Choudhury MD [address] [place] [address] PCP - General 06/10/16 [place] [address] [address] Referring Physician Neurology 07/24/17 09/02/19 [place] [address] [address] [address] Consulting Physician Endocrinology Diabetes & Metabolism 07/24/17 [place] [address] [address] Pro Shop Attendant Obstetrics and Gynecology 07/24/17 Alexandra Olivo [place] PhD [address] [address] Surgeon Surgical Oncology 08/02/18 Lorenzo Gamino MD PhD [address] [place] [address] Referring Physician Neurology 09/03/19 documented as of this encounter
--- OUTSIDE RECORDS SUMMARY | 2024-09-17 17:10 | XMS_ITS | Clinical Summary ---
Author Organization [facility] Address [address] [place] [address] Care Team Providers Care Ticket Sorter Name Role Phone Macey, Rodo Mackay MD Primary Care Provider [phone] Valdo Mcneal MD Unavailable [phone] Kyree Artis MD Unavailable [phone] Alexandra Olivo MD PhD Unavaila ble Lorenzo Cruz MD PhD Unavailable [phone] Allergies Active Allergy Reactions Criticality Noted Date [...] 1 tablet (150 mcg total) by mouth aged or disabled carer before breakfast 90 tablet 1 025 2024 [...] reconciled Assessment & Plan (03/29/2024 9:35 AM SUPERVISOR HOME ECONOMICS): IMMUNIZATIONS WERE REVIEWED EYE EXAM AND DENTAL [...] on file Legal Sex Female 12:19 AM SUPERVISOR HOME ECONOMICS Gender Identity Female 10/22/2019 9:31 AM CDT [...] Comments Blood Pressure 120/80 03/29/2024 7:58 AM SUPERVISOR HOME ECONOMICS Pulse 74 03/29/2024 7:58 AM SUPERVISOR HOME ECONOMICS Temperature 36.3 C (97.3 F) 03/29/2024 7:58 AM SUPERVISOR HOME ECONOMICS Respiratory Rate 16 03/29/2024 7:58 AM SUPERVISOR HOME ECONOMICS Oxygen Saturation 99% 03/29/2024 7:58 AM SUPERVISOR HOME ECONOMICS Inhaled Oxygen Concentration - - Weight 51.1 kg (112 lb 9.6 oz) 03/29/2024 7:58 A M SUPERVISOR HOME ECONOMICS Height 157.5 cm (5' 2) 03/29/2024 7:58 AM SUPERVISOR HOME ECONOMICS Body Mass Index 20.59 03/29/2024 7:58 AM SUPERVISOR HOME ECONOMICS Plan of Treatment Health Maintenance Due Date Last Done Comments Breast Cancer Screening-Mammogram 1978 Cervical Cancer Screening 1978 Colon Cancer Screening-Colonoscopy 1978 Hepatitis C Screening 1978 Hepatitis B Screening 01/17/1996 DTaP/Tdap/Td Vaccine (2 - Td or Tdap) 02/12/2019 02/12/2009 Covid-19 Vaccine (3 - season) 2023 05/29/2020, 05/01/2020 Influenza Vaccine (#1) 2024 Depression Screening 03/29/2025 03/29/2024, 03/23/19 24 Regular Well Visit/Exam 18-64 03/29/2025 03/29/2024, 03/23/2023, 03/10/2022, Additional history exists HPV Vaccines Aged Out No longer eligi ble based on patient's age to complete this topic Pneumococcal vaccine <65 Aged Out No longer eligible based on patient's age to complete this topic Insurance [facility] Member Subscriber Plan / Payer (Ef fective 2012-Present) Name:Kathie Wing Relation to Subscriber:Self Name:Kathie Wing Payer ID:[id number] ([facility]) Type:[facility] HMO/PPO Address: [address] [facility] Member Subscriber Plan / Payer ( fective 2012-Present) Name:KATHIE GALLEGOS Relation to Subscriber:Self Name:Kathie Wing Payer ID:[id number] ([facility]) Type:[facility] HMO/PPO Address: [address] [facility] Member Subscriber Plan / Payer (Ef fective 2022-Present) Name:Kathie Wing Relation to Subscriber:Spouse Name:Berlin Wing Date of :1977 (Home) Address: [address] [place] [address] Payer ID:[id number] ([facility]) Type:[facility] HMO/PPO Address: [address] Care Teams Ticket Sorter Relationship Specialty Start Date End Date Rodo Choudhury MD [address] [place] [address] PCP - General 06/10/16 [place] [address] [address] Consulting Physician Endocrinology Diabetes & Metabolism 07/24/17 [place] [address] [address] Business Ethics Professor Obstetrics and Gynecology 07/24/17 [place] [address] [address] Surgeon Surgical Oncology 08/02/18 Lorenzo Cruz MD PhD [address] [place] [address] Referring Physician Neurology 09/03/19
--- OUTSIDE RECORDS SUMMARY | 2024-09-17 17:10 | XMS_ITS | Encounter Summary ---
Author Organization [facility] Address [address] [place] [address] Phone Care Team Providers Care Digital Data Analyst Name Role Phone Rodo Choudhury MD Primary Care Provider [phone] Celso Ortiz MD Unavailable [phone] Valdo Mcneal MD Unavailable [phone] Kyree Artis MD Unavailable [phone] Alexandra Olivo MD PhD Unavaila ble Lorenzo Gamino MD PhD Unavailable [phone] Encounter Details Date Type Department Care Team (Late st Contact Info) Description 04/21/2017 Orders Only [facility] [address] [place] [address] Rodo Choudhury MD [address] [place] [address] Social History Tobacco Use Types Packs/Day Years Used Date Smoking Tobacco: Never Smokeless Tobacco: Never Alcohol Use Standard Drinks/Week Comments No 0 (1 standard drink = 0.6 oz pur e alcohol) Comments Unknown Sex and Gender Information Value Date Recorded Sex Assigned at Not on file Legal Sex Female 12:19 AM IT MANAGER Gender Identity Female 10/22/2019 9:31 AM CDT Sexual Orientation Not on file documented as of this encounter Plan of Treatment Not on file documented as of this encounter Procedures Procedure Name Priority Date/Time Associated Diagnosis Comments SCAN - RADIOLOGY/IMAGING 04/21/2017 2:43 PM IT MANAGER documented in this encounter Results * SCAN - RADIOLOGY/IMAGING (04/21/2017 2:43 PM IT MANAGER) Anatomical Region Laterality Modality Other Rodo Choudhury MD Final Resu lt documented in this encounter Visit Diagnoses Not on filedocumented in this encounter Additional Health Concerns Infection Onset Date Last Indicated Resolved Time COVID: Suspected 10/06/2022 10/06/2022 10/06/2022 11:26 AM CDT documented as of this encounter Care Teams Digital Data Analyst Relationship Specialty Start Date End Date Rodo Choudhury MD [address] [place] [address] PCP - General 06/10/16 [place] [address] [address] Referring Physician Neurology 07/24/17 09/02/19 [place] [address] [address] [address] Consulting Physician Endocrinology Diabetes & Metabolism 07/24/17 [place] [address] [address] Yarn Examiner Obstetrics and Gynecology 07/24/17 Alexandra Olivo [place] PhD [address] [address] Surgeon Surgical Oncology 08/02/18 Lorenzo Gamino MD PhD [address] [place] [address] Referring Physician Neurology 09/03/19 documented as of this encounter
--- OUTSIDE RECORDS SUMMARY | 2024-09-17 17:10 | XMS_ITS | Clinical Summary ---
Author Organization [facility] Address [address] [place] [address] Phone Care Team Providers Care Stave Bolt Equalizer Name Role Phone Macey, Rodo Thompson SE[place] Primary Care Provider [phone] Allergies Active Allergy Reactions Criticality Noted Date [...] 10:17 PM CDT Height 157.5 cm (5' 2) 11/03/2016 10:17 PM CDT Body Mass Index 24.69 11/03/2016 10:17 PM CDT Plan of Treatment Health Maintenance Due Date Last Done Comments Hepatitis C Virus (HCV) Screening 1978 Hepatitis B Immunization (1 of 3 - 19+ 3-dose series) 1997 Pap Smear 1999 Cervical Cancer Screening (CCS) 01/17/2008 HPV/Cotest 01/17/2008 Cologuard 2023 Colonoscopy 2023 Colorectal Cancer Screening 2023 Immunochemical Fecal Occult Blood 2023 01/12/2021 SARS-COV-2 Immunization ( season) 2023 05/29/2020, 05/01/2020 Influenza Immunization (#1) 2024 Respiratory Syncytial Virus (RSV) Immunization (Adult) (1 - 1-dose 75+ series) 2053 DTaP/Tdap/Td Immunization Discontinued 02/12/2009 Human Papillomavirus (HPV) Immunization Aged Out No longer eligible based on patient's age to complete this topic Meningococcal Immunization (ACWY) Aged Out No longer eligible based on patient's age to complete this topic Pneumococcal Immunization Combined Aged Out No longer eligible based on patient's age to complete this topic Rotavirus Immunization Aged Out No lo nger eligible based on patient's age to complete this topic Insurance [facility] Care Teams Stave Bolt Equalizer Relationship Specialty Start Date End Date Rodo Choudhury [place] [address] [place] [id number] PCP - General Internal Medicine 11/03/16
[2024-09-17 17:50] LABS: Hematocrit 40.0 % (37.0-47.0); Hemoglobin 13.2 g/dL (12.0-15.0); Immature Granulocyte Percent A 0.2 % (0-0.5); Lymphocytes Absolute Auto 2.57 K/mm3 (0.9-3.2); Mean Corpuscular HGB Conc 33.0 g/dl (32-36); Mean Corpuscular Hemoglobin 31.7 pg (26-34); Mean Corpuscular Volume 96.2 fl (80-100); Nucleated Red Blood Cells Absolute Auto 0.000 K/mm3 (0.0-0.012); Nucleated Red Blood Cells Perc 0.0 % (0.0-0.2); Platelet Count Result 196 k/mm3 (150-375); Red Blood Count 4.16 M/mm3 (4.2-5.4); White Blood Count 8.4 K/mm3 (4.5-10.0)
[2024-09-17 18:12] LABS: Alanine Aminotransferase 13 U/L (6-35); Albumin Level 4.0 g/dL (3.5-5.1); Alkaline Phosphatase 49 U/L (38-126); Anion Gap 10 mmol/L (4-12); Aspartate Amino Transferase 22 U/L (14-36); Bilirubin,Total 0.2 mg/dL (0.2-1.3); Blood Urea Nitrogen 12 mg/dL (7-17); Calcium 8.9 mg/dL (8.4-10.2); Carbon Dioxide 20 mmol/L (22-30); Chloride 107 mmol/L (98-107); Cholesterol 186 mg/dL (0-200); Estimated Glomerular Filt Rate 60; Glucose 138 mg/dL (65-110); HDL Direct 70 mg/dL; Potassium 3.4 mmol/L (3.4-5.0); Sodium 137 mmol/L (137-145); Total Protein 6.8 g/dL (6.3-8.2); Triglycerides 124 mg/dL (<150)
[2024-09-17 18:42] LABS: Thyroid Stimulating Hormone 3.100 uIU/mL (0.465-4.680)
[2024-09-17 19:07] LABS: Free T3 3.01 pg/mL (2.71-6.16); Free T4 Free Thyroxine 1.29 ng/dL (0.78-2.19)
== END 2024-09-17 17:04 | disposition home or self-care (01) ==
LOC: ANHLAB 17:08
PROVIDERS: PCP Internal Medicine Infectious Disease; Visit Provider Internal Medicine Infectious Disease
DX: Z00.00 Encounter for general adult medical examination without abnormal findings (principal)
CPT/HCPCS: 36415; 80053; 80061; 82306; 84439; 84443; 84481; 85025